=== PATIENT | male | born 1955 | race Two or more races ===

== ENCOUNTER → 2024-03-17 | Outpatient (CLI) | payer OTHER, SELFPAY | END | disposition home or self-care (01) | LOC: SWHD 13:09 | PROVIDERS: PCP Nurse Anesthetist, Certified Registered; Referring Provider Nurse Anesthetist, Certified Registered; Visit Provider Surgery | DX: E11.621 Type 2 diabetes mellitus with foot ulcer (principal); L97.412 Non-pressure chronic ulcer of right heel and midfoot with fat layer exposed; L97.411 Non-pressure chronic ulcer of right heel and midfoot limited to breakdown of skin; L97.522 Non-pressure chronic ulcer of other part of left foot with fat layer exposed; S91.302A Unspecified open wound, left foot, initial encounter; X58.XXXA Exposure to other specified factors, initial encounter; I25.10 Atherosclerotic heart disease of native coronary artery without angina pectoris; I10 Essential (primary) hypertension; Z79.4 Long term (current) use of insulin; Z91.199 Patient's noncompliance with other medical treatment and regimen due to unspecified reason; E11.40 Type 2 diabetes mellitus with diabetic neuropathy, unspecified | CPT/HCPCS: 11042; A9270 ==

== ENCOUNTER → 2024-03-17 | Outpatient (CLI) | payer OTHER, SELFPAY ==
--- NOTE | 2024-03-17 15:20 | XR_ITS ---
Examination: Foot, left, 3 views Technique: AP, oblique, lateral views foot, 3 views Date and time of exam: March 17, 2024 1530 hours INDICATIONS: Foot pain redness and swelling beginning 5 days ago. FINDINGS: Bone destruction involving amputated distal fourth metatarsal, erosions distal third and second metatarsals No opaque foreign body Soft tissue vascular calcification IMPRESSION: Osteomyelitis fourth third and second metatarsals as above, consider MRI foot without contrast follow-up
== END | disposition home or self-care (01) ==
LOC: SDIM 14:59
PROVIDERS: Referring Provider Surgery; Visit Provider Surgery
DX: M86.8X7 Other osteomyelitis, ankle and foot (principal)
CPT/HCPCS: 73630

== ENCOUNTER → 2024-03-18 | Outpatient (CLI) | payer OTHER, SELFPAY | END | disposition home or self-care (01) | LOC: SLDO 16:26 | PROVIDERS: Referring Provider Surgery; Visit Provider Surgery | DX: E11.621 Type 2 diabetes mellitus with foot ulcer (principal) | CPT/HCPCS: 87070; 87075; 87077; 87186; 87205 ==

== ENCOUNTER → 2024-03-18 | Outpatient (CLI) | payer OTHER, SELFPAY ==
[2024-03-18 09:51] LABS: Basophils # (Auto) 0.1 Thou/mm3 (0.0-0.2); Basophils % (Auto) 1 % (0-2.5); Eosinophils # (Auto) 0.3 Thou/mm3 (0.0-0.5); Eosinophils % (Auto) 3 % (0-10); Hemoglobin 12.4 g/dL (13.5-16.0); Immature Granulocytes % (Auto) 1 % (0-0); Immature Granulocytes Auto 0.06 Thou/mm3 (0.00-0.00); Lymphocytes # (Auto) 1.9 Thou/mm3 (1.0-4.8); Lymphocytes % (Auto) 22 % (10-50); Mean Corpuscular HGB Conc 33.5 g/dl (31.0-37.0); Mean Corpuscular Hemoglobin 29.2 pg (25.0-35.0); Mean Corpuscular Volume 87 fL (80-100); Monocytes # (Auto) 0.8 Thou/mm3 (0.0-0.8); Monocytes % (Auto) 10 % (0-12); Neutrophils # (Auto) 5.4 Thou/mm3 (1.8-7.7); Neutrophils % (Auto) 64 % (37-80); Nucleated Red Blood Cell % 0 /100 WBC (0); Platelet Count 236 Thou/mm3 (140-440); Red Blood Count 4.25 Miln/mm3 (4.50-5.90); White Blood Count 8.4 Thou/mm3 (3.8-10.6)
[2024-03-18 09:59] LABS: Glucose Estimated Average 315 mg/dL (80-131); Hemoglobin A1C 12.6 % Hgb (4.8-6.0)
[2024-03-18 10:12] LABS: Alanine Aminotransferase 11 U/L (10-49); Albumin, Serum 4.3 gm/dL (3.4-4.8); Albumin/Globulin Ratio 1.3 (1.2-2.2); Alkaline Phosphatase 114 U/L (46-116); Anion Gap 7 (7-16); Aspartate Amino Transferase 14 U/L (0-34); BUN/Creatinine Ratio 22 Ratio (12-20); Bilirubin,Total 0.2 mg/dL (0.3-1.2); Blood Urea Nitrogen 28 mg/dL (9-23); Calcium 9.6 mg/dL (8.3-10.6); Calcium (Corrected) 9.6 mg/dL (8.5-10.1); Carbon Dioxide 28.3 mMol/L (20.0-31.0); Chloride 101 mMol/L (98-107); Creatinine (Component) 1.3 mg/dL (0.6-1.3); Globulin 3.2 gm/dL (2.3-3.5); Glucose 371 mg/dL (74-106); Osmolality,Calculated 292 (275-295); Potassium 5.2 mMol/L (3.4-5.1); Sodium 136 mMol/L (136-145); Total Protein 7.5 gm/dL (5.7-8.2); eGFR 60 See Note
== END | disposition home or self-care (01) ==
LOC: COPL 09:03
PROVIDERS: PCP Family Medicine; Referring Provider Surgery; Visit Provider Surgery
DX: E11.621 Type 2 diabetes mellitus with foot ulcer (principal)
CPT/HCPCS: 36415; 80053; 83036; 85025

== ENCOUNTER 2024-03-26 06:17 | Emergency (ER) | payer OTHER, SELFPAY ==
[2024-03-26 06:27] VITALS: BP 143/69; PULSE 76; RESP 18; TEMP 36.7; O2SAT 98; BMI 29.6
--- NOTE | 2024-03-26 06:29 | EDNOTE_ITS ---
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 Son states patient has catheter exchanges approx every month and he's due for an exchange. No fever, abdominal pain or urinary symptoms reported. 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 Urology: Michael. Related Data Home Medications ?Medication ?Instructions ?Recorded ?Confirmed Glyburide/Metformin * (GLUCOVANCE 1 tab PO TIDWM #0 tabs 09/01/12/11/20 5/500 *) captopril 25 mg tablet 25 mg PO QDAY #0 tabs 09/14/16 12/11/20 Previous Rx's ?Medication ?Instructions ?Recorded ciprofloxacin HCl 500 mg tablet 500 mg PO BID #14 tabs 12/12/20 (Cipro) sulfamethoxazole 800 1 tab PO BID #20 tabs 05/30/23 mg-trimethoprim 160 mg tablet (Bactrim DS) Allergies Allergy/AdvReac Type Severity Reaction Status Date / Time No Known Allergies Allergy Verified 09/11/23 10:13 Review of Systems Review of Systems Systems Reviewed: All systems reviewed, normal except as documented Constitutional Constitutional: Denies chills and Denies fever(s) Gastrointestinal Gastrointestinal: Denies nausea and Denies vomiting Genitourinary Genitourinary: Denies dysuria and Denies flank pain Past Medical History Past Medical History GENITOURINARY: Positive Benign Prostatic Hyperplasia ENDOCRINE: Positive Diabetes Mellitus Type 2 Social History SMOKING STATUS: Never smoker SUBSTANCE USE: does not use ALCOHOL: Never ED Exam General Limitations: Present no limitations General appearance: Present alert and in no apparent distress Head Head exam: Present atraumatic and normocephalic Eye Eye exam: Present normal appearance, PERRL and EOMI ENT ENT exam: Present normal exam and mucous membranes moist Neck Neck exam: Present normal inspection and full ROM Chest Chest inspection: Present normal inspection and symmetric chest wall rise Respiratory Respiratory exam: Present normal lung sounds bilaterally; Absent respiratory distress Cardiovascular Cardiovascular exam: Present regular rate and normal rhythm Abdominal Exam Abdominal exam: Present soft and other (Suprapubic catheter site, mild surrounding erythema); Absent distention or tenderness Extremities Exam Extremities exam: Present normal inspection and full ROM Neurological Exam Neurological exam: Present alert and oriented X3 Psychiatric Psychiatric exam: Present normal affect and normal mood Skin Skin exam: Present warm, dry, intact and normal color Course Quality Measures none Orders Category Date Time Status Lidocaine Jelly 2% Urojet [Xylocaine Jelly 2% Urojet] Med 03/26/24 07:06 Discontinued See Dose Instructions TOP X1 ONE Vital Signs Vital signs: Vital Signs Temperature 98.1 F 03/26/24 06:27 Pulse Rate 76 03/26/24 06:27 Respiratory Rate 18 03/26/24 06:27 Blood Pressure 143/69 H 03/26/24 06:27 Pulse Oximetry (%) 98 03/26/24 06:27 Oxygen Delivery Method Room Air 03/26/24 06:27 Urogenital - Male MDM Narrative MDM Narrative:: 69yom with pmhx of DM2 and BPH/urinary retention presents to ED after suprapubic catheter fell out this morning. Son states patient has catheter exchanges approx every month and he's due for an exchange. No fever, abdominal pain or urinary symptoms reported. 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 Urology: Michael. Unable to replace suprapubic catheter in ED. Catheter had resistance with minimal tubing inserted, prior cath had been out for a few hours. Son wishes to take patient from ED to Dr. Escobar's office for cath replacement. Stable for dc, RTED precautions given. Patient data External records reviewed:: [facility] previous records (urology clinic visit 09/11/23 for new patient referral) Clinical information provided by:: patient and family (son) Social determinants that could affect healthcare access:: none Patient has the following chronic illnesses:: BPH, urinary retention, DM How is presenting disease/condition affected by chronic disease/condition?: caused by Evaluation data The following diagnostics were reviewed and interpreted by me:: other (specify) (none) Lab and/or radiology exams considered but not ordered:: UA Interpretation Summary: na Medications / Prescriptions Medications or Prescriptions considered but not ordered:: no antibiotics recommended at this time Medication administrations:: Medication Administration History Discontinued Medications Lidocaine HCl (Lidocaine Jelly 2% (Urojet) 10 Ml Tube) 0 ml TOP X1 ONE Stop: 03/26/24 07:07 Last Admin: 03/26/24 07:15 Dose: 10 ml Documented By: EF none Consultations Consultation(s) initiated? (list below): No Diagnosis Urogenital Male Differential Diagnosis: other (UTI, retention of urine, catheter issue) Most likely diagnosis given after review of the tests above:: Catheter issue Admission Indicated Admission indicated?: not indicated Admission Request Was there a request for admission?: No Disposition Plan Disposition Plan: Discharge Discharge Attestation Discharge Attestation: The patient and all family members were given an opportunity to ask questions and understood the discharge instructions. Discharge instructions specifically effects, indications for sooner follow up or return to the emergency department, and the expected course of current diagnosis. Patient condition: Stable Discharge Plan Plan Patient Disposition: HOME (Self Care) Patient condition on transfer: Stable Prescriptions/Referrals Prescriptions/Med Rec: No Action Glyburide/Metformin * (GLUCOVANCE 5/500 *) 1 TAB tablet 1 tab PO TIDWM Qty: 0 captopril 25 MG tablet 25 mg PO QDAY Qty: 0 ciprofloxacin HCl [Cipro] 500 mg tablet 500 mg PO BID Qty: 14 0RF sulfamethoxazole-trimethoprim [Bactrim DS] 800-160 mg tablet 1 tab PO BID Qty: 20 0RF Referrals: Luis Escobar MD [Physician] - 03/26/24 Problem List Clinical Impression: Suprapubic catheter dysfunction Patient/Caregiver Discharge Instructions Print Language: Macedonian Stand Alone Forms: Jeanette Award Info., Patient Portal Info Letter PA/DENISE Supervising Physician PA/DENISE Supervising Physician: Thelma
[2024-03-26] MEDS: LIDOCAINE JELLY 2% (Urojet) 10 ML TUBE TOP (07:15)
[2024-03-26 07:30] VITALS: BP 150/83; PULSE 74; RESP 16; TEMP 36.8; O2SAT 98
--- NOTE | 2024-03-26 07:35 | PC.NURSE ---
patient brought in today for suprapubic catheter that came out 1 hour ago ANNELIESE fisher at bedside attempted to place a new one but wasnt able to. recommended the patient see a gu specialist to place a new one.
== END 2024-03-26 07:45 | disposition home or self-care (01) ==
LOC: SERX 08:37
PROVIDERS: Emergency Provider Emergency Medicine
DX: T83.020A Displacement of cystostomy catheter, initial encounter (principal); N40.1 Benign prostatic hyperplasia with lower urinary tract symptoms; R33.8 Other retention of urine; Y83.3 Surgical operation with formation of external stoma as the cause of abnormal reaction of the patient, or of later complication, without mention of misadventure at the time of the procedure
CPT/HCPCS: 99282

== ENCOUNTER 2024-04-16 11:20 | Inpatient (IN) | payer OTHER, MEDICAID, MEDICARE, SELFPAY ==
--- NOTE | 2024-04-16 12:01 | XR_ITS ---
Examination: Foot bilateral, 6 views Technique: AP, oblique, lateral views each foot total 6 views Date and time of exam: April 16 2024 to 16 hours Comparison left foot films March 17, 2024, INDICATIONS: redness swelling and pain involving the bilateral feet months FINDINGS: Right foot chronic erosive changes fifth and fourth metatarsals again noted Chronic subluxation at the right second metatarsophalangeal joint Suspicious for erosions distal right third metatarsal Erosions distal amputated fourth metatarsal left foot Flexion deformity second metatarsophalangeal joint left foot IMPRESSION: Osteomyelitis right foot fourth and fifth metatarsals distal third metatarsal Osteomyelitis left foot fourth metatarsal Consider elective MRI right and left foot without contrast follow-up
--- NOTE | 2024-04-16 12:02 | PD.EDRME ---
Rapid Medical Screening Exam E Arrival date/time: 04/16/24 11:20 69-year-old male with a history of type 2 diabetes, hypertension, hyperlipidemia presents to the emergency room with a chief complaint of bilateral lower foot diabetic ulcers. Patient states she has had multiple amputations in his feet and has now developed bilateral blisters and wounds to the bottom of his feet. I have greeted and performed a focused initial assessment of this patient. A comprehensive ED assessment and evaluation of the patient, analysis of all test results, and completion of the medical decision making process will be conducted by additional ED providers. Chief Complaint: Extremity Injury, Lower Vital signs reviewed by provider: Yes
[2024-04-16 12:05] VITALS: BP 140/77; PULSE 75; RESP 17; TEMP 36.8; O2SAT 99; BMI 28.5
[2024-04-16 12:30] LABS: Basophils # (Auto) 0.1 Thou/mm3 (0.0-0.2); Basophils % (Auto) 1 % (0-2.5); Eosinophils # (Auto) 0.2 Thou/mm3 (0.0-0.5); Eosinophils % (Auto) 2 % (0-10); Hematocrit 36.6 % (41.0-53.0); Hemoglobin 12.2 g/dL (13.5-16.0); Immature Granulocytes % (Auto) 0 % (0-0); Immature Granulocytes Auto 0.02 Thou/mm3 (0.00-0.00); Lymphocytes # (Auto) 2.3 Thou/mm3 (1.0-4.8); Lymphocytes % (Auto) 24 % (10-50); Mean Corpuscular HGB Conc 33.3 g/dl (31.0-37.0); Mean Corpuscular Hemoglobin 29.4 pg (25.0-35.0); Mean Corpuscular Volume 88 fL (80-100); Monocytes # (Auto) 0.8 Thou/mm3 (0.0-0.8); Monocytes % (Auto) 9 % (0-12); Neutrophils % (Auto) 64 % (37-80); Nucleated Red Blood Cell % 0 /100 WBC (0); Platelet Count 268 Thou/mm3 (140-440); RDW Standard Deviation 43.6 fL (35.1-43.9); Red Blood Count 4.15 Miln/mm3 (4.50-5.90); White Blood Count 9.4 Thou/mm3 (3.8-10.6)
[2024-04-16 13:01] LABS: Alanine Aminotransferase 11 U/L (10-49); Albumin, Serum 4.8 gm/dL (3.4-4.8); Albumin/Globulin Ratio 1.2 (1.2-2.2); Alkaline Phosphatase 116 U/L (46-116); Anion Gap 9 (7-16); Aspartate Amino Transferase 12 U/L (0-34); BUN/Creatinine Ratio 25 Ratio (12-20); Bilirubin,Total 0.3 mg/dL (0.3-1.2); Blood Urea Nitrogen 32 mg/dL (9-23); C-Reactive Protein 2.3 mg/dL (0.0-0.9); Calcium 9.5 mg/dL (8.3-10.6); Calcium (Corrected) 9.5 mg/dL (8.5-10.1); Carbon Dioxide 27.5 mMol/L (20.0-31.0); Chloride 102 mMol/L (98-107); Creatinine (Component) 1.3 mg/dL (0.6-1.3); Estimated Creatinine Clearance 49.1 mL/min (>60); Globulin 3.9 gm/dL (2.3-3.5); Glucose 225 mg/dL (74-106); Osmolality,Calculated 289 (275-295); Potassium 4.4 mMol/L (3.4-5.1); Sodium 138 mMol/L (136-145); Total Protein 8.7 gm/dL (5.7-8.2); eGFR 60 See Note
[2024-04-16 14:09] LABS: Sed Rate (ESR) 52 mm/hr (0-20)
[2024-04-16 16:49] VITALS: BP 129/66; PULSE 75; RESP 17; TEMP 36.7; O2SAT 96
[2024-04-16 17:27] LABS: Lactate (Lactic Acid) 1.5 mMol/L (0.4-2.0)
[2024-04-16 18:03] LABS: Procalcitonin 0.12 ng/ml (0.0-0.49)
--- NOTE | 2024-04-16 18:31 | PD.RESEVENT ---
Documentation for date of: 04/16/24 Event Note Event Note: Received call after 6pm Per report 69 y/o M with hx of diabetes with diabetic foot ulcers possible osteomyelitis. General surgery Dr. Bradford was consulted and will evaluate the patient. Will sign off to night team. Jem Elizabeth MD PGY-1
--- NOTE | 2024-04-16 18:33 | EDNOTE_ITS ---
Lower Extremity Injury RME/HPI General Chief Complaint: Extremity Injury, Lower Stated Complaint: WOUND TO RIGHT FOOT HX DM Arrival date/time: 04/16/24 11:20 RME / HPI RME / HPI Narrative: DR. HORTON MAIN ED EVALUATION: 69 year old male with past medical history significant for type 2 diabetes, hypertension, hyperlipidemia presents to the Emergency Department with complaint of bilateral feet wounds/ ulcers. Symptoms are moderate. Patient states she has had multiple toe amputations and has now developed bilateral blisters and wounds to the bottom of his feet. Patient denies any tobacco, alcohol, or substance use. Related Data Home Medications ?Medication ?Instructions ?Recorded ?Confirmed captopril 25 mg tablet 25 mg PO QDAY #0 tabs 09/14/16 12/11/20 Previous Rx's ?Medication ?Instructions ?Recorded blood-glucose sensor (FreeStyle #1 ea 04/19/24 Anh 3 Plus Sensor device) doxycycline hyclate 100 mg tablet 100 mg PO BID 6 weeks #84 tabs 04/19/24 insulin glargine 100 unit/mL (3 20 unit (0.2 mL) subcut QDAY #15 mL 04/19/24 mL) subcutaneous pen insulin syringe-needle U-100 1 mL #100 ea 04/19/24 29 gauge x 1/2 (Ultra-Thin II Insulin Syringe) metformin 500 mg tablet 500 mg PO BID #30 tabs 04/19/24 Allergies Allergy/AdvReac Type Severity Reaction Status Date / Time No Known Allergies Allergy Verified 04/16/24 11:23 Review of Systems Review of Systems Systems Reviewed: All systems reviewed, normal except as documented Narrative Review of Systems: GEN: No fever, no chills, no weight loss EYES: No discharge, no visual changes, no pain HEENT: No ear pain, no congestion, no sore throat PULM: No shortness of breath, no cough, no congestion CV: No chest pain, no dyspnea on exertion, no palpitations GI: No nausea, no vomiting, no diarrhea, no pain, no constipation : No frequency, no urgency and no dysuria MUSC/SKEL: No joint pain, no back pain SKIN: No rash. + bilateral feet wounds/ ulcers PSYCH: No hallucinations, no depression HEME/LYMPH: No easy bleeding or bruising tendencies NEURO: No weakness, no headache Past Medical History Past Medical History CARDIAC: Negative Congestive Heart Failure RESPIRATORY: Negative Chronic Obstructive Pulmonary Disease (COPD) GENITOURINARY: Positive Genitourinary Disorders (SUPRAPUBIC CATHETER FOR 1.5 YEARS) and Benign Prostatic Hyperplasia; Negative Renal Disease ENDOCRINE: Positive Diabetes Mellitus Type 2; Negative Diabetes Mellitus Type 1 Social History SMOKING STATUS: Never smoker SUBSTANCE USE: does not use ED Exam Narrative Physical exam: GENERAL APPEARANCE: alert and oriented x 4, well-developed, well-nourished, no acute distress VITALS: All vitals were reviewed and the pulse ox is 96% on room air, which is normal according to my interpretation. HEENT: Normocephalic, atraumatic; pupils equal, round, reactive to light; EOMI; mucous membranes pink, moist; oropharynx clear NECK: Supple LUNGS: CTABL; no wheezes, no rales, no rhonchi HEART: Regular rate, regular rhythm; normal S1, S2; no murmurs ABDOMEN: non distended; normal BS; soft, no tenderness, no guarding, no rebound; no masses, no organomegaly, no hernia BACK: no CVA tenderness EXTREMITIES: + bilateral blisters and wounds to the bottom of his feet NEUROLOGIC: awake; alert and oriented x4; cranial nerves II-XII grossly intact; no focal sensory or motor deficits PSYCHIATRIC: appropriate mood and affect SKIN: warm, dry, normal color; no rashes Course Quality Measures none Orders Category Date Time Status Insert IV NOW Care 04/16/24 18:17 Completed Consult to General Surgery Stat Cons 04/16/24 18:15 Ordered XR foot comp BI min 3V Stat Exams 04/16/24 12:01 Completed Blood Culture (Lab) Stat Lab 04/16/24 17:15 Results CBC Stat Lab 04/16/24 12:10 Completed CMP [Comprehensive Metabolic Panel] Stat Lab 04/16/24 12:10 Completed CRP [C-Reactive Protein] Stat Lab 04/16/24 12:10 Completed ESR [Sed Rate (ESR)] Stat Lab 04/16/24 12:10 Completed Lactate (Lactic Acid) Stat Lab 04/16/24 17:15 Completed Procalcitonin Stat Lab 04/16/24 17:15 Completed Piper/Tazo 3.375 gm [Zosyn] Med 04/16/24 16:59 Discontinued 3.375 gm in 50 ml IV X1 Vancomycin Inj 1,000 mg Med 04/16/24 17:00 Discontinued Sodium Chloride 0.9% 250 ml [Ns] 250 ml IV X1 Vital Signs Vital signs: Vital Signs Temperature 98.2 F 04/16/24 12:05 Pulse Rate 75 04/16/24 12:05 Respiratory Rate 17 04/16/24 12:05 Blood Pressure 140/77 H 04/16/24 12:05 Pulse Oximetry (%) 99 04/16/24 12:05 Oxygen Delivery Method Room Air 04/16/24 12:05 Extremity Injury, Lower MDM Narrative MDM Narrative:: Maribel Stone am scribing for and in the presence of Dr. Horton. Patient data External records reviewed:: [facility] previous records (Reviewed last ED visit dated 03/26/24, discharged with Suprapubic catheter dysfunction.) Clinical information provided by:: patient and family Social determinants that could affect healthcare access:: none Patient has the following chronic illnesses:: type 2 diabetes, hypertension, hyperlipidemia How is presenting disease/condition affected by chronic disease/condition?: exacerbated by Evaluation data The following diagnostics were reviewed and interpreted by me:: lab results and radiology exam(s) Lab and/or radiology exams considered but not ordered:: none Interpretation Summary: Procedure(s): XR foot comp BI min 3V Accession Number(s): [id number] cc: Roberto Garcia; Adebayo Hebert MD~ Examination: Foot bilateral, 6 views Technique: AP, oblique, lateral views each foot total 6 views Date and time of exam: April 16 2024 to 16 hours Comparison left foot films March 17, 2024, INDICATIONS: redness swelling and pain involving the bilateral feet months FINDINGS: Right foot chronic erosive changes fifth and fourth metatarsals again noted Chronic subluxation at the right second metatarsophalangeal joint Suspicious for erosions distal right third metatarsal Erosions distal amputated fourth metatarsal left foot Flexion deformity second metatarsophalangeal joint left foot IMPRESSION: Osteomyelitis right foot fourth and fifth metatarsals distal third metatarsal Osteomyelitis left foot fourth metatarsal Consider elective MRI right and left foot without contrast follow-up Dictated By: Adebyao Hebert MD Medications / Prescriptions Medications or Prescriptions considered but not ordered:: none Medication administrations:: Medication Administration History Discontinued Medications Acetaminophen (Acetaminophen 325 Mg Tablet) 650 mg PO Q6H PRN PRN Reason: Fever >101.5 Stop: 02/02/25 21:24 Acetaminophen (Acetaminophen 325 Mg Tablet) 650 mg PO Q6H PRN PRN Reason: PAIN SCALE 1-3 (mild Stop: 05/16/24 21:24 Atorvastatin Calcium (Atorvastatin Calcium 20 Mg Tablet) 20 mg PO HS [facility] Stop: 05/17/24 20:59 Last Admin: 04/19/24 20:26 Dose: 20 mg Documented By: Admin: 04/18/24 20:31 Dose: 20 mg Documented By: Admin: 04/17/24 20:30 Dose: 20 mg Documented By: Captopril (Captopril 12.5 Mg Tablet) 25 mg PO QDAY [facility] Stop: 05/19/24 15:44 Last Admin: 04/20/24 09:05 Dose: Not Given Documented By: Non-Admin Reason: per pharmacy dont carry this switch to other Admin: 04/19/24 16:00 Dose: Not Given Documented By: Non-Admin Reason: Not In Room Dextrose (Dextrose 50%-Water Inj 50 Ml Syringe) 25 ml IV Q15MIN PRN PRN Reason: BG 50-70 responsive npo pt Stop: 05/16/24 21:28 Dextrose (Dextrose 50%-Water Inj 50 Ml Syringe) 50 ml IV Q15MIN PRN PRN Reason: BG <50 OR BG <70 & pt unresponsive Stop: 05/16/24 21:28 Diltiazem HCl (Diltiazem Inj 5 Mg/Ml Vial 5 Ml) 25 mg IV X1 ONE Stop: 04/18/24 05:09 Last Admin: 04/18/24 05:08 Dose: Not Given Documented By: Non-Admin Reason: entered in error Doxycycline Hyclate (Doxycycline 100 Mg Tablet) 100 mg PO BID [facility] Stop: 04/26/24 10:14 Last Admin: 04/20/24 08:55 Dose: 100 mg Documented By: Admin: 04/19/24 20:26 Dose: 100 mg Documented By: Admin: 04/19/24 12:05 Dose: 100 mg Documented By: Comments: first dose Glucagon (Glucagon Inj 1 Mg Vial) 1 mg IM Q15MIN PRN PRN Reason: BG <70, and no IV access Heparin Sodium (Beef Lung) (Heparin Sod Lock Syr 100 Unit/Ml) Confirm Administered Dose 500 unit .ROUTE .STK-MED ONE Stop: 04/19/24 15:15 Last Admin: 04/19/24 15:34 Dose: Not Given Documented By: CU Non-Admin Reason: Override Medication Heparin Sodium (Beef Lung) (Heparin Sod Lock Syr 100 Unit/Ml) 500 unit STFIELD X1 ONE Stop: 04/19/24 15:30 Last Admin: 04/19/24 15:31 Dose: 500 unit Documented By: EREN Comments: to sterile field Heparin Sodium (Porcine) (Heparin Sod Inj 5000 Unit/Ml Vial) 5,000 unit SC Q8HR [facility] Stop: 04/30/24 21:59 Last Admin: 04/17/24 05:42 Dose: 5,000 unit Documented By: Co-signed By: RUDY Admin: 04/16/24 22:37 Dose: 5,000 unit Documented By: JOCELYN Co-signed By: ENDER Heparin Sodium (Porcine) (Heparin Sod Inj 5000 Unit/Ml Vial) 5,000 unit SC Q12H [facility] Stop: 05/01/24 20:59 Last Admin: 04/20/24 08:55 Dose: 5,000 unit Documented By: Co-signed By: MALLORY Admin: 04/19/24 20:26 Dose: 5,000 unit Documented By: AIYANA Co-signed By: SABIHA Admin: 04/19/24 09:52 Dose: 5,000 unit Documented By: Co-signed By: MEG Admin: 04/18/24 20:34 Dose: 5,000 unit Documented By: NASEEM Co-signed By: RUDY Admin: 04/18/24 09:28 Dose: 5,000 unit Documented By: NASEEM(2) Co-signed By: SUKUMAR Admin: 04/17/24 20:31 Dose: 5,000 unit Documented By: Co-signed By: SABIHA Hydromorphone HCl (Hydromorphone Inj 2 Mg/Ml Vial) 1 mg IVP Q2H PRN PRN Reason: Pain 7-10 Stop: 04/21/24 21:24 Vancomycin HCl 1,000 mg/ (Sodium Chloride) 250 mls @ 150 mls/hr IV X1 ONE Stop: 04/16/24 18:39 Last Infusion: 04/16/24 21:44 Dose: Infused Documented By: Admin: 04/16/24 19:43 Dose: 150 mls/hr Documented By: JOCELYN Piperacillin/Tazobactam/Dextrose (Zosyn) 3.375 gm in 50 mls @ 100 mls/hr IV X1 ONE Stop: 04/16/24 17:28 Last Infusion: 04/16/24 19:49 Dose: Infused Documented By: Admin: 04/16/24 19:10 Dose: 100 mls/hr Documented By: MAGALIE Piperacillin/Tazobactam/Dextrose (Zosyn) 50 mls @ 12.5 mls/hr IV Q8HR YELITZA Stop: 04/24/24 05:59 Last Admin: 04/19/24 05:19 Dose: 12.5 mls/hr Documented By: Infusion: 04/19/24 04:16 Dose: Infused Documented By: Admin: 04/19/24 00:16 Dose: 12.5 mls/hr Documented By: Infusion: 04/18/24 18:28 Dose: Infused Documented By: Admin: 04/18/24 14:28 Dose: 12.5 mls/hr Documented By: NASEEM(2) Infusion: 04/18/24 09:14 Dose: Infused Documented By: NASEEM(2) Admin: 04/18/24 05:14 Dose: 12.5 mls/hr Documented By: Infusion: 04/18/24 02:25 Dose: Infused Documented By: Admin: 04/17/24 22:25 Dose: 12.5 mls/hr Documented By: Infusion: 04/17/24 18:16 Dose: Infused Documented By: Admin: 04/17/24 14:16 Dose: 12.5 mls/hr Documented By: NASEEM(2) Infusion: 04/17/24 09:40 Dose: Infused Documented By: NASEEM(2) Admin: 04/17/24 05:40 Dose: 12.5 mls/hr Documented By: Piperacillin Sod/Tazobactam (Sod 4.5 gm/ Sodium Chloride) 100 mls @ 200 mls/hr IV X1 ONE Stop: 04/17/24 01:29 Last Infusion: 04/17/24 01:31 Dose: Infused Documented By: Admin: 04/17/24 01:01 Dose: 200 mls/hr Documented By: Vancomycin/Sodium Chloride (Vancomycin/Ns 500 Mg Ivpb) 100 mls @ 120 mls/hr IV Q12HR@1000,2200 YELITZA Stop: 04/24/24 09:59 Last Infusion: 04/17/24 22:29 Dose: Infused Documented By: Admin: 04/17/24 21:29 Dose: 120 mls/hr Documented By: Infusion: 04/17/24 10:28 Dose: Infused Documented By: Admin: 04/17/24 09:38 Dose: 120 mls/hr Documented By: NASEEM(2) Vancomycin HCl (Vancomycin/Water 1250 Mg Ivpb) 250 mls @ 120 mls/hr IV QDAY@1000 [facility] Stop: 04/25/24 09:59 Last Admin: 04/19/24 09:52 Dose: 120 mls/hr Documented By: Infusion: 04/18/24 12:10 Dose: Infused Documented By: Admin: 04/18/24 10:05 Dose: 120 mls/hr Documented By: NASEEM(2) Ceftriaxone Sodium 2 gm/ (Sodium Chloride) 50 mls @ 100 mls/hr IV QDAY [facility] Stop: 04/26/24 10:14 Last Admin: 04/20/24 08:54 Dose: 100 mls/hr Documented By: Infusion: 04/19/24 12:34 Dose: Infused Documented By: Admin: 04/19/24 12:04 Dose: 100 mls/hr Documented By: Insulin Glargine (Insulin Glargine (Lantus) 5 Unit/0.05 Ml (Per 5 Units)) 25 unit SC QDAY [facility] Stop: 05/17/24 08:59 Last Admin: 04/20/24 08:55 Dose: 25 unit Documented By: Co-signed By: MALLORY Admin: 04/19/24 09:58 Dose: 25 unit Documented By: Co-signed By: RICHARD Admin: 04/18/24 09:28 Dose: 25 unit Documented By: NSAEEM(2) Co-signed By: SUKUMAR Admin: 04/17/24 09:37 Dose: 25 unit Documented By: NASEEM(2) Co-signed By: SUKUMAR Insulin Human Lispro (Insulin Lispro (Admelog) 1 Unit/0.01 Ml Unit) 0 unit SC ACHS [facility]; Protocol Stop: 05/17/24 07:29 Last Admin: 04/17/24 07:29 Dose: 1 unit Documented By: NASEEM(2) Co-signed By: SUKUMAR Insulin Human Lispro (Insulin Lispro (Admelog) 1 Unit/0.01 Ml Unit) 0 unit SC [facility]; Protocol Stop: 05/17/24 11:29 Insulin Human Lispro (Insulin Lispro (Admelog) 1 Unit/0.01 Ml Unit) 0 unit SC [facility]; Protocol Stop: 05/17/24 11:29 Last Admin: 04/20/24 11:52 Dose: 4 unit Documented By: Co-signed By: RICHARD Admin: 04/20/24 07:54 Dose: 4 unit Documented By: Co-signed By: MÓNICA Admin: 04/19/24 17:12 Dose: 4 unit Documented By: Co-signed By: RICHARD Admin: 04/19/24 11:56 Dose: 4 unit Documented By: Co-signed By: RICHARD Admin: 04/19/24 08:00 Dose: Not Given Documented By: Non-Admin Reason: Per Protocol Admin: 04/18/24 17:18 Dose: 4 unit Documented By: NASEEM(2) Co-signed By: MEG Admin: 04/18/24 12:21 Dose: 4 unit Documented By: NASEEM(2) Co-signed By: CARLOS Admin: 04/18/24 07:17 Dose: Not Given Documented By: NASEEM(2) Non-Admin Reason: Per Protocol Admin: 04/17/24 16:48 Dose: 8 unit Documented By: NASEEM(2) Co-signed By: SUKUMAR Admin: 04/17/24 11:53 Dose: 4 unit Documented By: NASEEM(2) Co-signed By: SUKUMAR Labetalol HCl (Labetalol Inj 5 Mg/Ml Vial 20 Ml) 10 mg IVP Q2H PRN PRN Reason: SBP more than 180 Stop: 05/17/24 02:29 Lidocaine HCl (Lidocaine Inj Pf 1% 30 Ml Vial) Confirm Administered Dose 30 ml .ROUTE .STK-MED ONE Stop: 04/19/24 15:15 Last Admin: 04/19/24 15:34 Dose: Not Given Documented By: EREN Non-Admin Reason: Override Medication Lidocaine HCl (Lidocaine Inj Pf 1% 30 Ml Vial) 5 ml INFL X1 ONE Stop: 04/19/24 15:30 Last Admin: 04/19/24 15:31 Dose: 5 ml Documented By: CU Comments: to sterile field administered by dr hebert Lisinopril (Lisinopril 2.5 Mg Tablet) 5 mg PO QDAY [facility]; Protocol Stop: 05/20/24 09:14 Last Admin: 04/20/24 09:35 Dose: 5 mg Documented By: Ondansetron HCl (Ondansetron Inj 2 Mg/Ml Inj 2 Ml) 4 mg IV Q6H PRN; Protocol PRN Reason: NAUSEA OR VOMITING Stop: 05/16/24 21:24 Oxycodone/Acetaminophen (Oxycodone/Apap 5/325 Tablet) 1 tab PO Q6H PRN PRN Reason: PAIN SCALE 4-6 (Moderate Stop: 04/21/24 21:24 Pantoprazole Sodium (Pantoprazole 40 Mg Tablet) 40 mg PO QDAY YELITZA Stop: 05/17/24 08:59 Last Admin: 04/20/24 08:55 Dose: 40 mg Documented By: Admin: 04/19/24 09:52 Dose: 40 mg Documented By: Admin: 04/18/24 09:29 Dose: Not Given Documented By: NASEEM(2) Non-Admin Reason: Patient Refused Admin: 04/17/24 09:38 Dose: 40 mg Documented By: NASEEM(2) Pharmacy Consult (Vancomycin Pharmacy To Dose 1 Each Each) 1 each IV QDAY PRN PRN Reason: CONSULT Stop: 05/17/24 08:59 see above Consultations Consultation(s) initiated? (list below): Yes Consultation #1 (Physician, Specialty, Details): Discussed test HPI, PMHx, lab, radiology results and/or management with Dr. Bradford. Will consult an admission to the hospitalist. Time: 18:00 Consultation #2 (Physician, Specialty, Details): Discussed test HPI, PMHx, lab, radiology results and/or management with hospitalist. Will admit for further evaluation and management. Accepts patient for admission. Time: 18:20 Diagnosis Extremity Injury, Lower Differential Diagnosis: other (osteomyelitis, diabetic ulcer, sepsis) Most likely diagnosis given after review of the tests above:: As noted below. Admission Indicated Admission indicated?: indicated Admission Request Was there a request for admission?: Yes Admission Attestation Admission request attestation: Discussed case with [] from Hospitalist service regarding admission. Discussed patients ED course, exam findings, labs, and radiology results. The Hospitalist [agrees,declines] to accept the patient for admission. Disposition Plan Disposition Plan: Admit Discharge Plan Plan Patient Disposition: Admit Acute Care w/in Hospital Problem List Clinical Impression: Osteomyelitis, Diabetic foot ulcer Patient/Caregiver Discharge Instructions Other Activity Instructions:: 1) Follow up at [facility] as scheudled. Please call [phone] to rescheudle as needed. 2) Follow up at [facility] with Dr. Parsons, please call [phone] to schedule appointment. 3) Wound care to left foot: swab ulcers with betadine daily. Wear Darco shoe while ambulating. Right foot: cleanse with wound cleanser spray. Saturating with betadine and wrap with dry gauze once a day. Wear Darco shoe while walking.
[2024-04-16] MEDS: PIPER/TAZO 3.375 GM 3.375 GM/50 ML BAG IV (19:10)
[2024-04-16] MEDS: Vancomycin Inj 1,000 MG in SODIUM CHLORIDE 0.9% 250 ML 250 ML 150 MG IV (19:43)
[2024-04-16 20:23] VITALS: BP 135/74; PULSE 72; RESP 18; TEMP 36.9; O2SAT 98
--- NOTE | 2024-04-16 20:48 | ESHP_ITS ---
Documentation for date of: 04/16/24 HPI History of Present Illness Chief complaint: Bilateral feet ulcers for 1 day History of present illness: HPI: A 69-year-old male patient with past medical history of insulin-dependent diabetes mellitus, hypertension, hyperlipidemia came to the ED due to bilateral foot ulcers that he noticed them 1 day ago. He reported that the right started that the swelling and then was popped by itself and started to drain bloody yellowish discharge. Patient denied any pain or hotness he reported that he cannot feel his feet bilaterally. Patient denied any fever or chills denied any night sweats. He reported that he is on insulin to control his diabetes he takes 50 basal insulin and 5 Premeal. Patient reported that recently he ran out of his prescription. Patient denied any cough, shortness of breath, abdominal pain, nausea or vomiting denied any blurry vision or dizziness. Home medications: Insulin, simvastatin, glipizide, Farxiga, ciprofloxacin ED course:At the ED patient was found to have normal vital signs, WBC of 9.4, hemoglobin 12.4, ESR of 52, BUN of 32, serum creatinine 1.3 which is his baseline, glucose of 225, CRP of 2.3, Pro-Williams within normal limits. Bilateral foot x-ray showed osteomyelitis of the right foot fourth and fifth metatarsal and distal third metatarsal bones, it also showed left foot fourth metatarsal osteomyelitis. PMH: As above Social hx: Alcohol: Denied Tobacco: Denied Illicit drugs: Denied Allergies: No known allergies Review of Systems Review of Systems Systems Reviewed: All systems reviewed, normal except as documented Exam Vital Signs Temp Pulse Resp BP Pulse Ox O2 Del Method 98.4 F 72 18 135/74 H 98 Room Air 04/16/24 20:23 04/16/24 20:23 04/16/24 20:23 04/16/24 20:23 04/16/24 20:23 04/16/24 20:23 Narrative Exam GEN: AOx3, able to speak full sentences HEENT: NC/AC, oral mucosa moist, neck supple CVS: RRR, S1-S2 present, no murmurs appreciated RESP: CTAB GI: soft,non distended, non tender, NBS MSK: Bilateral feet ulcers on the sole of the foot, draining yellowish discharge. No swelling. No cellulitis extending beyond the ulcers. Decreased sensation in both foot. SKIN: warm and dry [employer] REPA[employer]ER PNEUMATIC: CN II-XII and Sensation grossly intact. Results: Labs 04/16/24 12:10 04/16/24 12:10 Labs: Short CBC 04/16/24 Range/Units 12:10 WBC 9.4 (3.8-10.6) Thou/mm3 Hgb 12.2 L (13.5-16.0) g/dL Hct 36.6 L (41.0-53.0) % Plt Count 268 D (140-440) Thou/mm3 BMP 04/16/24 12:10 Sodium 138 Potassium 4.4 Chloride 102 Carbon Dioxide 27.5 BUN 32 H Creatinine 1.3 Glucose 225 H Calcium 9.5 Liver Function 04/16/24 Range/Units 12:10 Total Bilirubin 0.3 (0.3-1.2) mg/dL AST 12 (0-34) U/L ALT 11 (10-49) U/L Alkaline Phosphatase 116 (46-116) U/L Albumin 4.8 (3.4-4.8) gm/dL Quality Measures Quality Measures none Advance care planning discussed with:: patient Medications Home Medications and Allergies Home Medications ?Medication ?Instructions ?Recorded ?Confirmed ?Type Glyburide/Metformin * (GLUCOVANCE 1 tab PO TIDWM #0 tabs 09/01/13 12/11/20 History 5/500 *) captopril 25 mg tablet 25 mg PO QDAY #0 tabs 09/14/16 12/11/20 History Allergies Allergy/AdvReac Type Severity Reaction Status Date / Time No Known Allergies Allergy Verified 04/16/24 11:23 Visit Medications Discontinued Medications Vancomycin HCl 1,000 mg/ (Sodium Chloride) 250 mls @ 150 mls/hr IV X1 ONE Stop: 04/16/24 18:39 Last Admin: 04/16/24 19:43 Dose: 150 mls/hr Piperacillin/Tazobactam/Dextrose (Zosyn) 3.375 gm in 50 mls @ 100 mls/hr IV X1 ONE Stop: 04/16/24 17:28 Last Infusion: 04/16/24 19:49 Dose: Infused Assessment & Plan Plan Summary:A 69-year-old male patient with past medical history of insulin- dependent diabetes mellitus, hypertension, hyperlipidemia came to the ED due to bilateral foot ulcers that he noticed them 1 day ago. He reported that the right started that the swelling and then was popped by itself and started to drain bloody yellowish discharge. Patient was admitted for management of osteomyelitis. Assessment and plan #Right foot osteomyelitis #Left foot osteomyelitis #Uncontrolled diabetes mellitus Patient has uncontrolled diabetes mellitus. Last A1c 12.5 in March. normal vital signs, WBC of 9.4, hemoglobin 12.4, ESR of 52, BUN of 32, serum creatinine 1.3 which is his baseline, glucose of 225, CRP of 2.3, Pro-Williams within normal limits. Bilateral foot x-ray showed osteomyelitis of the right foot fourth and fifth metatarsal and distal third metatarsal bones, it also showed left foot fourth metatarsal osteomyelitis. Plan ? Admit patient to MedSurg ? General Surgery consultation was ordered, follow-up on recommendations ? Start the patient on vancomycin and Zosyn 0 04/16? ? Follow-up on the cultures result ? Daily CBC and CMP ? Referral for wound care ? Pain management as per protocol #Uncontrolled insulin-dependent diabetes mellitus #Medicine illiteracy Patient has uncontrolled diabetes mellitus. Last A1c 12.5 in March. Plan ? Insulin sliding scale ? Insulin glargine 25 international units daily ? Hypoglycemia protocol in place ? Carb consistent diet ? Diabetic education #History of hypertension Plan ?Labetalol 10 mg every 2 hours as needed IV if SBP more than 180 ? Consider resuming home medication after reconciliation Hospital Maintenance: FEN: Carb consistent diet DVT ppx: Heparin subcu GI ppx: Protonix IV lines: PIV Hodge: None Code status: Full code Dispo: MedSurg - Patient's plan and care discussed with my attending, Dr. Kenji Lynn MD Internal Medicine PGY-2 Attending Provider Attestation/Addendum I have examined the patient, reviewed labs and imaging findings, discussed the case with the resident(s), and reviewed entered orders. I agree with the plan of care as outlined in this note, with these additional summaries/recommendations: 69-year-old male with past medical history of hypertension, hyperlipidemia, uncontrolled DM on insulin (most recent A1c 12.5) presented to the ED with chief complaint of worsening bilateral lower extremity foot ulcers. Patient reports ulcer on his right foot had gotten worse and had recently popped which is what prompted him to come into the ER. X-ray of bilateral lower extremities revealed osteomyelitis of third fourth and fifth toes of the right foot and fourth toe of left foot. Patient initiated on broad-spectrum antibiotics, consult wound care and general surgery consult placed for further recommendations. Mango Phillip MD
[2024-04-16] MEDS: HEPARIN SOD INJ 5000 UNIT/ML VIAL SC (22:37)
[2024-04-16 22:57] VITALS: BMI 28.8
[2024-04-17] VITALS (7 sets, daily range): BP systolic 99–141; BP diastolic 62–84; PULSE 70–80; RESP 16–98; TEMP 36.1–36.6; O2SAT 96–98; BMI 28.8
[2024-04-17] MEDS: PIPER/TAZO INJ 4.5 GM in SODIUM CHLORIDE 0.9% (P) 100 ML IV (01:01)
[2024-04-17] MEDS: PIPER/TAZO 3.375 GM 50 ML IV ×3 (05:40→22:25)
[2024-04-17] MEDS: HEPARIN SOD INJ 5000 UNIT/ML VIAL SC ×2 (05:42→20:31)
[2024-04-17 06:16] LABS: Basophils # (Auto) 0.1 Thou/mm3 (0.0-0.2); Basophils % (Auto) 1 % (0-2.5); Eosinophils # (Auto) 0.2 Thou/mm3 (0.0-0.5); Eosinophils % (Auto) 2 % (0-10); Hematocrit 34.2 % (41.0-53.0); Hemoglobin 11.2 g/dL (13.5-16.0); Immature Granulocytes % (Auto) 0 % (0-0); Immature Granulocytes Auto 0.02 Thou/mm3 (0.00-0.00); Lymphocytes # (Auto) 2.3 Thou/mm3 (1.0-4.8); Lymphocytes % (Auto) 27 % (10-50); Mean Corpuscular HGB Conc 32.7 g/dl (31.0-37.0); Mean Corpuscular Hemoglobin 29.6 pg (25.0-35.0); Mean Corpuscular Volume 90 fL (80-100); Monocytes % (Auto) 11 % (0-12); Neutrophils % (Auto) 59 % (37-80); Nucleated Red Blood Cell % 0 /100 WBC (0); Platelet Count 260 Thou/mm3 (140-440); RDW Standard Deviation 44.3 fL (35.1-43.9); Red Blood Count 3.79 Miln/mm3 (4.50-5.90); White Blood Count 8.6 Thou/mm3 (3.8-10.6)
[2024-04-17 06:34] LABS: Glucose Estimated Average 280 mg/dL (80-131); Hemoglobin A1C 11.4 % Hgb (4.8-6.0)
[2024-04-17 06:42] LABS: Partial Thromboplastin Time 28.2 Seconds (22.0-36.0); Prothrombin Time 11.4 Seconds (9.0-12.2)
[2024-04-17 06:54] LABS: Alanine Aminotransferase 8 U/L (10-49); Albumin, Serum 4.2 gm/dL (3.4-4.8); Albumin/Globulin Ratio 1.2 (1.2-2.2); Alkaline Phosphatase 94 U/L (46-116); Anion Gap 11 (7-16); Aspartate Amino Transferase 13 U/L (0-34); BUN/Creatinine Ratio 24 Ratio (12-20); Bilirubin,Total 0.4 mg/dL (0.3-1.2); Blood Urea Nitrogen 34 mg/dL (9-23); Calcium 9.1 mg/dL (8.3-10.6); Calcium (Corrected) 9.1 mg/dL (8.5-10.1); Carbon Dioxide 25.4 mMol/L (20.0-31.0); Chloride 105 mMol/L (98-107); Creatinine (Component) 1.4 mg/dL (0.6-1.3); Estimated Creatinine Clearance 45.8 mL/min (>60); Globulin 3.5 gm/dL (2.3-3.5); Glucose 151 mg/dL (74-106); Magnesium 2.6 mg/dL (1.6-2.6); Osmolality,Calculated 291 (275-295); Phosphorous 4.8 mg/dL (2.4-5.1); Potassium 4.6 mMol/L (3.4-5.1); Sodium 141 mMol/L (136-145); Total Protein 7.7 gm/dL (5.7-8.2); eGFR 55 See Note
[2024-04-17] MEDS: INSULIN LISPRO (AdmeLOG) 1 UNIT/0.01 ML UNIT SC ×3 (07:29→16:48)
[2024-04-17] MEDS: INSULIN GLARGINE (Lantus) 5 UNIT/0.05 ML (PER 5 UNITS) 25 UNIT SC (09:37)
[2024-04-17] MEDS: VANCOMYCIN/NS 500 MG IVPB 100 ML 120 MG IV ×2 (09:38→21:29)
[2024-04-17] MEDS: PANTOPRAZOLE 40 MG TABLET PO (09:38)
--- NOTE | 2024-04-17 12:48 | ESPR_ITS ---
<Statement entered by Ronnie Quinn MD - 04/17/24 17:05> Patient was seen and examined at the bedside. Patient was admitted overnight for right and left foot osteomyelitis. Patient was complaining of pain in both lower extremities and has been having recent infection from past couple of weeks. Patient was found to have uncontrolled diabetes with a A1c of 11.4. Procalcitonin negative. Labs revealed WBC within normal limits, normocytic anemia. Mild NITIN with BUN 34 and creatinine 1.4. ESR and CRP elevated. Patient's home medication resumed. Dietitian recommended freestyle morenita 3 upon discharge. Patient also has a pacemaker placed unsure if it is MRI compatible. Patient did had an MRI at [facility] 2 months ago. Surgery was consulted for possible surgical intervention/evaluation however she recommended to discontinue MRI and continue with antibiotics and consult ID specialist for antibiotic selection. Currently we are continuing Zosyn and vancomycin and will follow-up with blood cultures, MRSA screen and wound cultures. Basal bolus insulin regime was started with Lantus 25 units and lispro sliding scale. Will follow with ID recommendations. All labs and orders were reviewed. I saw and examined the patient, and I agree with current management stated by Dr Benja MD ,PGY1. Plan of care was discussed with the attending physician and resident physician. Disclaimer: Despite multiple revisions, due to the dictation software being used, the document bellow may not be free of grammatical errors including phonetic/typographic errors. However, this does not deter from our commitment to providing health care in the patient's best interest in mind. Dr. Cheyenne MD, PGY 2 Documentation for date of: 04/17/24 Subjective Subjective Interval history: Patient is a 61-year-old male with a past medical history of diabetes mellitus type 2 insulin-dependent (on 40 and 10 glargine), HLD, HTN, history of lumbar back surgery secondary to abscess, history of stroke (2019) w/ stents and pacemaker (2019) who was admitted for bilateral osteomyelitis. No overnight events reported by patient. Patient examined at bedside. 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 Patient also stated he has a past medical history of lumbar abscess and spinal surgery status post rods and screws. History of stroke with pacemaker added in 2019 (not noted on previous chest x-ray from that year). Patient stated only mild pain at the lower extremities. History of neuropathy per patient patient cannot recall when injury occurred. Stated he had been having drainage of lower extremities for several weeks now. Noted foul-smelling odor. Denied fevers denied chills. No surgical intervention per Dr. Bradford. Exam Vital Signs Temp Pulse Resp BP Pulse Ox O2 Del Method 97.1 F 72 18 111/84 98 Room Air 04/17/24 08:00 04/17/24 08:00 04/17/24 08:00 04/17/24 08:00 04/17/24 08:00 04/17/24 08:00 Narrative Exam General Appearance: Alert & Oriented X3, well-nourished male who is lying in bed in no acute distress.Mild discharge noted. HEENT: Skull symmetrical and atraumatic. Conjunctivae pin and moist. Pupils equal, round, reactive to light and accommodation (PERRL). External ear without lesion or discharge. Straight, nares patient, mucosa pink, no discharge. No thyroid nodule appreciated. No cervical lymphadenopathy. Cardio: Normal Rate and Rhythm with S1 and S2 heart sounds. No murmurs or extra heart sounds auscultated. No bruits on carotid auscultation. No peripheral edema or cyanosis. Lungs: Symmetric with good expansion. Chest and back non-tender. Breath sounds vesicular without crackles, wheezing or rhonchi Abdomen: Non-tender, Non-distended, Normal Reactive Bowel Sounds Neuro: Alert, cooperative, oriented to person, place, and time. Speech clear. CN grossly intact. Upper motor strength 5/5 and Lower motor strength 5/5. Sensation intact. Objective Labs 04/18/24 04:45 04/18/24 04:45 Labs: Laboratory Results - last 24 hr 04/16/24 04/16/24 04/17/24 12:10 17:15 04:42 WBC 8.6 RBC 3.79 L Hgb 11.2 L Hct 34.2 L MCV 90 MCH 29.6 MCHC 32.7 RDW Std Deviation 44.3 H Plt Count 260 Neut % (Auto) 59 Lymph % (Auto) 27 [place] % (Auto) 11 Eos % (Auto) 2 Baso % (Auto) 1 Neut # (Auto) 5.0 Lymph # (Auto) 2.3 [place] # (Auto) 1.0 H Eos # (Auto) 0.2 Baso # (Auto) 0.1 Immature Gran # (Auto) 0.02 H Absolute Nucleated RBC 0.00 Immature Gran % 0 Nucleated RBC % 0 ESR 52 H PT 11.4 INR 1.0 APTT 28.2 Sodium 138 141 Potassium 4.4 4.6 Chloride 102 105 Carbon Dioxide 27.5 25.4 Anion Gap 9 11 BUN 32 H 34 H Creatinine 1.3 1.4 H Estim Creat Clear Calc 49.1 L 45.8 L eGFR 60 55 L BUN/Creatinine Ratio 25 H 24 H Glucose [address] Glu mg/dL 280 H Hemoglobin A1c 11.4 H Calculated Osmolality 289 291 Lactic Acid 1.5 Calcium 9.5 9.1 Corrected Calcium 9.5 9.1 Phosphorus 4.8 Magnesium 2.6 Total Bilirubin 0.3 0.4 AST 12 13 ALT 11 8 L Alkaline Phosphatase 116 94 D C-Reactive Prot, Quant 2.3 H Total Protein 8.7 H 7.7 Albumin 4.8 4.2 D Globulin 3.9 H 3.5 Albumin/Globulin Ratio 1.2 1.2 Procalcitonin 0.12 Quality Measures Quality Measures none Advance care planning discussed with:: patient Assessment & Plan Assessment Current Active Medications: Generic Name Dose Route Start Last Admin Trade Name Freq PRN Reason Stop Dose Admin Acetaminophen 650 mg 04/16/24 21:25 Acetaminophen 325 Mg Tablet PO 05/16/24 21:24 Q6H PRN Fever >101.5 Acetaminophen 650 mg 04/16/24 21:25 Acetaminophen 325 Mg Tablet PO 05/16/24 21:24 Q6H PRN PAIN SCALE 1-3 (mild Atorvastatin Calcium 20 mg 04/17/24 21:00 Atorvastatin Calcium 20 Mg Tablet PO 05/17/24 20:59 HS YELITZA Dextrose 25 ml 04/16/24 21:29 Dextrose 50%-Water Inj 50 Ml Syringe IV 05/16/24 21:28 Q15MIN PRN BG 50-70 responsive npo pt Dextrose 50 ml 04/16/24 21:29 Dextrose 50%-Water Inj 50 Ml Syringe IV 05/16/24 21:28 Q15MIN PRN BG <50 OR BG <70 & pt unresponsive Glucagon 1 mg 04/16/24 21:29 Glucagon Inj 1 Mg Vial IM Q15MIN PRN BG <70, and no IV access Heparin Sodium (Porcine) 5,000 unit 04/17/24 21:00 Heparin Sod Inj 5000 Unit/Ml Vial SC 05/01/24 20:59 Q12H YELITZA Hydromorphone HCl 1 mg 04/16/24 21:25 Hydromorphone Inj 2 Mg/Ml Vial IVP 04/21/24 21:24 Q2H PRN Pain 7-10 Piperacillin/Tazobactam/Dextrose 50 mls @ 12.5 mls/hr 04/17/24 06:00 04/17/24 05:40 Zosyn IV 04/24/24 05:59 12.5 mls/hr Q8HR YELITZA Administration Vancomycin/Sodium Chloride 100 mls @ 120 mls/hr 04/17/24 10:00 04/17/24 09:38 Vancomycin/Ns 500 Mg Ivpb IV 04/24/24 09:59 120 mls/hr Q12HR@1000,2200 YELITZA Administration Insulin Glargine 25 unit 04/17/24 09:00 04/17/24 09:37 Insulin Glargine (Lantus) 5 Unit/0.05 Ml (Per 5 Units) SC 05/17/24 08:59 25 unit QDAY YELITZA Administration Insulin Human Lispro 0 unit 04/17/24 11:30 04/17/24 11:53 Insulin Lispro (Admelog) 1 Unit/0.01 Ml Unit SC 05/17/24 11:29 4 unit AC YELITZA Administration Protocol Labetalol HCl 10 mg 04/17/24 02:30 Labetalol Inj 5 Mg/Ml Vial 20 Ml IVP 05/17/24 02:29 Q2H PRN SBP more than 180 Ondansetron HCl 4 mg 04/16/24 21:25 Ondansetron Inj 2 Mg/Ml Inj 2 Ml IV 05/16/24 21:24 Q6H PRN NAUSEA OR VOMITING Protocol Oxycodone/Acetaminophen 1 tab 04/16/24 21:25 Oxycodone/Apap 5/325 Tablet PO 04/21/24 21:24 Q6H PRN PAIN SCALE 4-6 (Moderate Pantoprazole Sodium 40 mg 04/17/24 09:00 04/17/24 09:38 Pantoprazole 40 Mg Tablet PO 05/17/24 08:59 40 mg QDAY [facility] Administration Pharmacy Consult 1 each 04/17/24 09:00 Vancomycin Pharmacy To Dose 1 Each Each IV 05/17/24 08:59 QDAY PRN CONSULT Plan Patient is a 61-year-old male with a past medical history of diabetes mellitus type 2 insulin-dependent (on 40 and 10 glargine), HLD, HTN, history of lumbar back surgery secondary to abscess, history of stroke (2019) w/ stents and pacemaker (2019) who was admitted for bilateral osteomyelitis. #Right foot osteomyelitis #Left foot osteomyelitis #Diabetic Ulcer #soft tissue infection Patient stated he is not sure when wound first started but has been present for several months, likely secondary to diabetic mellitus and diabetic ulcers. Possible PICC line, pending rec form Dr. Grissom. No surgical intervention per Dr. Bradford. Diagnostics: Bilateral foot x-ray showed osteomyelitis of the right foot fourth and fifth metatarsal and distal third metatarsal bones, it also showed left foot fourth metatarsal osteomyelitis. Plan ? [facility] General Surgery consultation was ordered, follow-up on recommendations ? Start the patient on vancomycin and Zosyn (04/16?) ? Pending Blood Cultures -Wound Cultures if taken to OR ? Daily CBC and CMP ? Wound care ? Pain management as per protocol -Consult Infectious Disease, Dr. Grissom, for possible PICC line - Consult general surgery, Dr. Bradford, appreciate recommendtions #Uncontrolled insulin-dependent diabetes mellitus Type 2 #Medicine illiteracy Patient has uncontrolled diabetes mellitus. Last A1c 12.5 in March. Plan -Follow with fasting blood glucose ? Insulin sliding scale ? Insulin glargine 25 international units daily ? Hypoglycemia protocol in place ? Carb consistent diet ? Diabetic education #History of hypertension Patient may be taking captoril 25 mg PO Qday, given blood pressure within normal reading and one soft blood pressure. Hold home medication. Revaluate tomorrow and restart as needed. Plan -Albumin/Cr Urine ordered ?Labetalol 10 mg every 2 hours as needed IV if SBP more than 180 -Hold home medication of Captoril given soft blood pressure readings. #Hyperlipedimia #hx Stroke Past medical history of HLD on Simvastatin 20 mg HS. Restart Atorvastatin in patinet Diagnostic: previous lipid panel (12/25/2023): Triglycerides 101, cholesterol 147, HDL 31, LDL 96 ASCVD risk 26.7% risk of cardiovascular event Plan -Atorvastatin 20 mg HS -Consider starting high statin for patient tomorrow Hospital Maintenance: FEN: Carb consistent diet DVT ppx: Heparin subcu GI ppx: Protonix IV lines: PIV Hodge: None Code status: Full code Dispo: MedSurg - The patient's plan was discussed with attending Dr. Hancock and senior residents Dr. Cheyenne Yousif MD PGY1 Internal Medicine Attending Provider Attestation/Addendum I attest that I was physically present for the evaluation, physical examination, lab and imaging review of the patient with the residents. I discussed the case with the residents and agree with the findings and plans of care as documented above. Patient is a overnight admission for diabetic foot with osteomyelitis. Currently on empiric IV antibiotics. Surgery on board. We will obtain ID consult for further antibiotics recommendations. Awaiting blood cultures. Wound care and analgesics in place. On Insulin regimen for blood glucose control. Peter Hancock MD
--- NOTE | 2024-04-17 12:51 | PD.SURCONS ---
HPI Consult details History of present illness: 69M with HTN, HLD, DMII presenting with bilateral foot wounds. Pt noted drainage from the right foot wound but denies any current pain, fever, chills or malaise. Pt underwent xray showing osteomyelitis of right 4-5th metatarsals and 3rd distal metatarsal, as well as left foot 4th metatarsal. His WBC is 8.6, A1c 11.4, procal 0.12 Review of Systems Review of Systems ROS Unobtainable: All systems reviewed & no additional complaints except as documented Meds Home Medications and Allergies Home Medications ?Medication ?Instructions ?Recorded ?Confirmed ?Type Glyburide/Metformin * (GLUCOVANCE 1 tab PO TIDWM #0 tabs 09/01/13 12/11/20 History 5/500 *) captopril 25 mg tablet 25 mg PO QDAY #0 tabs 09/14/16 12/11/20 History Allergies Allergy/AdvReac Type Severity Reaction Status Date / Time No Known Allergies Allergy Verified 04/16/24 11:23 Exam Vital Signs Temp Pulse Resp BP Pulse Ox O2 Del Method 97.1 F 72 18 111/84 98 Room Air 04/17/24 08:00 04/17/24 08:00 04/17/24 08:00 04/17/24 08:00 04/17/24 08:00 04/17/24 08:00 Constitutional Constitutional: no acute distress Routine Respiratory Exam Respiratory: Present no resp distress Routine Extremities Exam Comments: left foot warm, dry ulcerations on the plantar surface of the foot with no necrotic tissue, no erythema or fluctuance right foot warm, purulent drainage lateral to great toe with eschar at plantar surface of foot, no necrotic tissue, no erythema or fluctuance Results Results: Laboratory Laboratory results: results reviewed Results: Imaging Imaging narrative: foot xray reviewed Assessment & Plan Plan 69M with HTN, HLD, DMII (A1c 11.4) presenting with osteomyelitis of left and right metatarsals and drainage from the right foot. On exam there is no necrotic tissue nececessitating debridement and no indication that amputation is necessary; pt can be treated with abx and improved glucose control Appreciate ID recs Refer to Wound Healing as outpt
[2024-04-17] MEDS: ATORVASTATIN CALCIUM 20 MG TABLET PO (20:30)
[2024-04-18] VITALS: BP 140/91; PULSE 75; RESP 17; TEMP 36.6; O2SAT 99
[2024-04-18 04:00] VITALS: BP 121/65; PULSE 74; RESP 17; TEMP 36.7; O2SAT 97
--- NOTE | 2024-04-18 04:57 | PD.RESEVENT ---
Documentation for date of: 04/18/24
[2024-04-18] MEDS: PIPER/TAZO 3.375 GM 50 ML IV ×2 (05:14→14:28)
[2024-04-18 05:53] LABS: Basophils # (Auto) 0.1 Thou/mm3 (0.0-0.2); Basophils % (Auto) 1 % (0-2.5); Eosinophils # (Auto) 0.2 Thou/mm3 (0.0-0.5); Eosinophils % (Auto) 2 % (0-10); Hematocrit 32.8 % (41.0-53.0); Hemoglobin 10.6 g/dL (13.5-16.0); Immature Granulocytes % (Auto) 0 % (0-0); Immature Granulocytes Auto 0.02 Thou/mm3 (0.00-0.00); Lymphocytes # (Auto) 2.1 Thou/mm3 (1.0-4.8); Lymphocytes % (Auto) 28 % (10-50); Mean Corpuscular HGB Conc 32.3 g/dl (31.0-37.0); Mean Corpuscular Hemoglobin 28.9 pg (25.0-35.0); Mean Corpuscular Volume 89 fL (80-100); Monocytes # (Auto) 0.8 Thou/mm3 (0.0-0.8); Monocytes % (Auto) 11 % (0-12); Neutrophils # (Auto) 4.4 Thou/mm3 (1.8-7.7); Neutrophils % (Auto) 58 % (37-80); Nucleated Red Blood Cell % 0 /100 WBC (0); Platelet Count 261 Thou/mm3 (140-440); Red Blood Count 3.67 Miln/mm3 (4.50-5.90); White Blood Count 7.5 Thou/mm3 (3.8-10.6)
[2024-04-18 06:23] LABS: Alanine Aminotransferase 82 U/L (10-49); Albumin/Globulin Ratio 1.2 (1.2-2.2); Alkaline Phosphatase 200 U/L (46-116); Anion Gap 10 (7-16); Aspartate Amino Transferase 77 U/L (0-34); BUN/Creatinine Ratio 22 Ratio (12-20); Bilirubin,Total 0.3 mg/dL (0.3-1.2); Blood Urea Nitrogen 31 mg/dL (9-23); Calcium 8.7 mg/dL (8.3-10.6); Calcium (Corrected) 8.7 mg/dL (8.5-10.1); Carbon Dioxide 24.1 mMol/L (20.0-31.0); Chloride 106 mMol/L (98-107); Creatinine (Component) 1.4 mg/dL (0.6-1.3); Estimated Creatinine Clearance 45.8 mL/min (>60); Globulin 3.3 gm/dL (2.3-3.5); Glucose 94 mg/dL (74-106); Magnesium 2.5 mg/dL (1.6-2.6); Osmolality,Calculated 285 (275-295); Phosphorous 4.5 mg/dL (2.4-5.1); Potassium 3.9 mMol/L (3.4-5.1); Sodium 140 mMol/L (136-145); Thyroid Stimulating Hormone 6.43 uIU/mL (0.55-4.78); Total Protein 7.3 gm/dL (5.7-8.2); eGFR 55 See Note
[2024-04-18 08:00] VITALS: BP 122/67; PULSE 70; RESP 16; TEMP 36.7; O2SAT 96
[2024-04-18 08:18] LABS: Free T4 (Free Thyroxine) 0.98 ng/dL (0.89-1.76)
[2024-04-18 09:00] LABS: Vancomycin,Trough 8.3 mcg/mL (5.0-10.0)
[2024-04-18 09:17] LABS: Creatinine MALB Rnd Ur 96 mg/dL (30-125); Microalbumin Creat Ratio 142 mg/gCrea (<30); Microalbumin, Random Urine 136 mg/L (0-300)
[2024-04-18] MEDS: HEPARIN SOD INJ 5000 UNIT/ML VIAL SC ×2 (09:28→20:34)
[2024-04-18] MEDS: INSULIN GLARGINE (Lantus) 5 UNIT/0.05 ML (PER 5 UNITS) 25 UNIT SC (09:28)
--- NOTE | 2024-04-18 09:51 | PC.SS ---
This is 69-year-old, , single male who presented to the ED due to suffering from right foot pain. Patient appeared alert and oriented to self, place and situation. Patient was pleasant. Patient reported that he resides alone in a home. However, he has 4 sons that assist him as needed. Patient reported being semi-independent with ADLs. He uses a FWW. He also has a pubic catheter. Patient's PCP is [facility]. Patient assigned his son, Hill Lau, as his medical decision maker. When medically clear, patient plans to return home (he is currently receiving home health); he does not need transportation. Discharge plan: Home with home health Next of kin: Hill Lau, son.
[2024-04-18] MEDS: VANCOMYCIN/WATER 1250 MG IVPB 250 ML 120 MG IV (10:05)
[2024-04-18 12:00] VITALS: BP 138/70; PULSE 72; RESP 16; TEMP 36.5; O2SAT 96
[2024-04-18] MEDS: INSULIN LISPRO (AdmeLOG) 1 UNIT/0.01 ML UNIT SC ×2 (12:21→17:18)
--- NOTE | 2024-04-18 13:43 | ESPR_ITS ---
Documentation for date of: 04/18/24 Subjective Subjective Interval history: Patient is a 61-year-old male with a past medical history of diabetes mellitus type 2 insulin-dependent (on 40 and 10 glargine), HLD, HTN, history of lumbar back surgery secondary to abscess, history of stroke (2019) w/ stents and pacemaker (2019) who was admitted for bilateral osteomyelitis. No overnight events reported. Patient has a suprpubic catheter since 2019. Patient denied pyrexia or chills overnight. Negative for lower extremity foot pain. Pending negative blood cultures to add PICC line, will likely need home health. Dr. Grissom will follow up with patient on 04/19/2023. Exam Vital Signs Temp Pulse Resp BP Pulse Ox O2 Del Method 98.1 F 70 16 122/67 96 Room Air 04/18/24 08:00 04/18/24 08:00 04/18/24 08:00 04/18/24 08:00 04/18/24 08:00 04/18/24 08:00 Narrative Exam General Appearance: Alert & Oriented X3, well-nourished male who is lying in bed in no acute distress HEENT: Skull symmetrical and atraumatic. Conjunctivae pink and moist. Pupils equal, round, reactive to light and accommodation (PERRL). External ear without lesion or discharge. Straight, nares patient, mucosa pink, no discharge. Cardio: Normal Rate and Rhythm with S1 and S2 heart sounds. No murmurs or extra heart sounds auscultated. No bruits on carotid auscultation. No peripheral edema or cyanosis. Lungs: Symmetric with good expansion. Chest and back non-tender. Breath sounds vesicular without crackles, wheezing or rhonchi Abdomen: Mild diffuse tenderness, Non-distended, Normal Reactive Bowel Sounds Neuro: Alert, cooperative, oriented to person, place, and time. Speech clear. CN grossly intact. Upper motor strength 5/5 and Lower motor strength 5/5. Sensation intact. Objective Labs 04/18/24 04:45 04/18/24 04:45 Labs: Laboratory Results - last 24 hr 04/18/24 04/18/24 04/18/24 04:45 07:00 08:25 WBC 7.5 RBC 3.67 L Hgb 10.6 L Hct 32.8 L MCV 89 MCH 28.9 MCHC 32.3 RDW Std Deviation 45.0 H Plt Count 261 Neut % (Auto) 58 Lymph % (Auto) 28 [place] % (Auto) 11 Eos % (Auto) 2 Baso % (Auto) 1 Neut # (Auto) 4.4 Lymph # (Auto) 2.1 [place] # (Auto) 0.8 Eos # (Auto) 0.2 Baso # (Auto) 0.1 Immature Gran # (Auto) 0.02 H Absolute Nucleated RBC 0.00 Immature Gran % 0 Nucleated RBC % 0 Sodium 140 Potassium 3.9 D Chloride 106 Carbon Dioxide 24.1 Anion Gap 10 BUN 31 H Creatinine 1.4 H Estim Creat Clear Calc 45.8 L eGFR 55 L BUN/Creatinine Ratio 22 H Glucose 94 D Calculated Osmolality 285 Calcium 8.7 Corrected Calcium 8.7 Phosphorus 4.5 Magnesium 2.5 Total Bilirubin 0.3 AST 77 H ALT 82 H Alkaline Phosphatase 200 H D Total Protein 7.3 Albumin 4.0 Globulin 3.3 Albumin/Globulin Ratio 1.2 TSH 6.43 H Free T4 0.98 Ur Random Microalbumin 136 U Creat (Microalbumin) 96 Microalb/Creat Ratio 142 H Vancomycin Trough 8.3 Quality Measures Quality Measures none Advance care planning discussed with:: patient Assessment & Plan Assessment Current Active Medications: Generic Name Dose Route Start Last Admin Trade Name Freq PRN Reason Stop Dose Admin Acetaminophen 650 mg 04/16/24 21:25 Acetaminophen 325 Mg Tablet PO 05/16/24 21:24 Q6H PRN Fever >101.5 Acetaminophen 650 mg 04/16/24 21:25 Acetaminophen 325 Mg Tablet PO 05/16/24 21:24 Q6H PRN PAIN SCALE 1-3 (mild Atorvastatin Calcium 20 mg 04/17/24 21:00 04/17/24 20:30 Atorvastatin Calcium 20 Mg Tablet PO 05/17/24 20:59 20 mg HS YELITZA Administration Dextrose 25 ml 04/16/24 21:29 Dextrose 50%-Water Inj 50 Ml Syringe IV 05/16/24 21:28 Q15MIN PRN BG 50-70 responsive npo pt Dextrose 50 ml 04/16/24 21:29 Dextrose 50%-Water Inj 50 Ml Syringe IV 05/16/24 21:28 Q15MIN PRN BG <50 OR BG <70 & pt unresponsive Glucagon 1 mg 04/16/24 21:29 Glucagon Inj 1 Mg Vial IM Q15MIN PRN BG <70, and no IV access Heparin Sodium (Porcine) 5,000 unit 04/17/24 21:00 04/18/24 09:28 Heparin Sod Inj 5000 Unit/Ml Vial SC 05/01/24 20:59 5,000 unit Q12H YELITZA Administration Hydromorphone HCl 1 mg 04/16/24 21:25 Hydromorphone Inj 2 Mg/Ml Vial IVP 04/21/24 21:24 Q2H PRN Pain 7-10 Piperacillin/Tazobactam/Dextrose 50 mls @ 12.5 mls/hr 04/17/24 06:00 04/18/24 05:14 Zosyn IV 04/24/24 05:59 12.5 mls/hr Q8HR YELITZA Administration Vancomycin HCl 250 mls @ 120 mls/hr 04/18/24 10:00 04/18/24 10:05 Vancomycin/Water 1250 Mg Ivpb IV 04/25/24 09:59 120 mls/hr QDAY@1000 YELITZA Administration Insulin Glargine 25 unit 04/17/24 09:00 04/18/24 09:28 Insulin Glargine (Lantus) 5 Unit/0.05 Ml (Per 5 Units) SC 05/17/24 08:59 25 unit QDAY YELITZA Administration Insulin Human Lispro 0 unit 04/17/24 11:30 04/18/24 12:21 Insulin Lispro (Admelog) 1 Unit/0.01 Ml Unit SC 05/17/24 11:29 4 unit AC YELITZA Administration Protocol Labetalol HCl 10 mg 04/17/24 02:30 Labetalol Inj 5 Mg/Ml Vial 20 Ml IVP 05/17/24 02:29 Q2H PRN SBP more than 180 Ondansetron HCl 4 mg 04/16/24 21:25 Ondansetron Inj 2 Mg/Ml Inj 2 Ml IV 05/16/24 21:24 Q6H PRN NAUSEA OR VOMITING Protocol Oxycodone/Acetaminophen 1 tab 04/16/24 21:25 Oxycodone/Apap 5/325 Tablet PO 04/21/24 21:24 Q6H PRN PAIN SCALE 4-6 (Moderate Pantoprazole Sodium 40 mg 04/17/24 09:00 04/18/24 09:29 Pantoprazole 40 Mg Tablet PO 05/17/24 08:59 Not Given QDAY [facility] Pharmacy Consult 1 each 04/17/24 09:00 Vancomycin Pharmacy To Dose 1 Each Each IV 05/17/24 08:59 QDAY PRN CONSULT Plan Patient is a 61-year-old male with a past medical history of diabetes mellitus type 2 insulin-dependent (on 40 and 10 glargine), HLD, HTN, history of lumbar back surgery secondary to abscess, history of stroke (2019) w/ stents and pacemaker (2019) who was admitted for bilateral osteomyelitis. #Right foot osteomyelitis #Left foot osteomyelitis #Diabetic Ulcer #soft tissue infection Patient stated he is not sure when wound first started but has been present for several months, likely secondary to diabetic mellitus and diabetic ulcers. Possible PICC line, pending rec form Dr. Grissom. No surgical intervention per Dr. Bradford. Diagnostics: Bilateral foot x-ray showed osteomyelitis of the right foot fourth and fifth metatarsal and distal third metatarsal bones, it also showed left foot fourth metatarsal osteomyelitis. -Blood Culture Negative After 48 hours Plan ? Start the patient on vancomycin and Zosyn (04/16?) -PT and INR with morning labs in anticipation of PICC line tomorrow. -Wound care -Would Culture if paitnet taken to OR -Hepatitis C Antibody, placed by Infectious Disease. ? Pain management as per protocol -Consult Infectious Disease, Dr. Grissom, for possible PICC line - Consult general surgery, Dr. Bradford, appreciate recommendations #Uncontrolled insulin-dependent diabetes mellitus Type 2 #Medicine illiteracy Patient has uncontrolled diabetes mellitus. Last A1c 12.5 in March. Total of 13 units of sliding Lispro given for , no change to Glargine given fasting glucose of 94. Plan -Follow with fasting blood glucose ? Insulin sliding scale ? Insulin glargine 25 international units daily ? Hypoglycemia protocol in place ? Carb consistent diet ? Diabetic education #History of hypertension Patient may be taking captoril 25 mg PO Qday, given blood pressure within normal reading and one soft blood pressure. Hold home medication. Revaluate tomorrow and restart as needed. Diagnostics: Urine Microalbumin 587, Creatinine 129, Ratio 455 Plan -consider adding Lisinopril if blood pressure increases ?Labetalol 10 mg every 2 hours as needed IV if SBP more than 180 -Hold home medication of Captoril given blood pressure readings within normal range #Hyperlipedimia #hx Stroke #Elevated Transaminitis Past medical history of HLD on Simvastatin 20 mg HS. Given elevated Transaminitis currently holding Atorvastatin, but likely reactive. Diagnostic: previous lipid panel (12/25/2023): Triglycerides 101, cholesterol 147, HDL 31, LDL 96 ASCVD risk 26.7% risk of cardiovascular event Plan -Hepatitis C ordered -Atorvastatin 20 mg HS-HOLD -Consider starting high statin for patient tomorrow Hospital Maintenance: FEN: Carb consistent diet DVT ppx: Heparin subcu GI ppx: Protonix IV lines: PIV Hodge: None Code status: Full code Dispo: MedSurg - The patient's plan was discussed with attending Dr. Hancock and senior residents Dr. Michelet Yousif MD PGY1 Internal Medicine Senior Resident Attestation: I discussed with and supervised the internal medicine veterinary technician physician involved in the care of this patient. I personally saw and examined the patient and discussed the assessment and plan with the entire medicine team, including my attending. I agree with the assessment and plan as documented above. Patient seen examined at bedside. No overnight events. Labs, vital signs reviewed. Patient has osteomyelitis bilateral lower extremities. Patient is on IV antibiotics. Pending for infectious disease to recommend the next course of treatment. Possible PICC line placement tomorrow for IV antibiotics. - Patient's care was discussed with my attending physician. Vern Tafoya MD Internal Medicine PGY-3 Attending Provider Attestation/Addendum I attest that I was physically present for the evaluation, physical examination, lab and imaging review of the patient with the residents. I discussed the case with the residents and agree with the findings and plans of care as documented above. At bedside, patient states he is feeling well and does not have new complaints. General surgery on board, recommended medical management. Continues to be on IV antibiotics. Awaiting culture results. Peter Hancock MD
[2024-04-18 16:00] VITALS: BP 160/77; PULSE 72; RESP 16; TEMP 36.9; O2SAT 96
[2024-04-18 20:00] VITALS: BP 119/70; PULSE 69; RESP 17; TEMP 36.6; O2SAT 96
[2024-04-18] MEDS: ATORVASTATIN CALCIUM 20 MG TABLET PO (20:31)
[2024-04-19] VITALS (10 sets, daily range): BP systolic 124–170; BP diastolic 68–86; PULSE 67–73; RESP 16–19; TEMP 36.1–37.1; O2SAT 95–98
[2024-04-19] MEDS: PIPER/TAZO 3.375 GM 50 ML IV ×2 (00:16→05:19)
--- NOTE | 2024-04-19 05:17 | PC.NURSE ---
pt. is refusing blood draws for lab, educated on importance and need of blood draw, pt. still refusing
[2024-04-19] MEDS: PANTOPRAZOLE 40 MG TABLET PO (09:52)
[2024-04-19] MEDS: HEPARIN SOD INJ 5000 UNIT/ML VIAL SC ×2 (09:52→20:26)
[2024-04-19] MEDS: VANCOMYCIN/WATER 1250 MG IVPB 250 ML 120 MG IV (09:52)
--- NOTE | 2024-04-19 09:55 | ESPR_ITS ---
Subjective Subjective Interval history: dm and other problems as noted. no surgery planned. Exam Vital Signs Temp Pulse Resp BP Pulse Ox O2 Del Method 97.4 F 73 19 134/68 H 95 Room Air 04/19/24 08:00 04/19/24 08:00 04/19/24 08:00 04/19/24 08:00 04/19/24 08:00 04/19/24 08:00 Narrative Exam see dictation Objective - Internal Medicine Labs 04/18/24 04:45 04/18/24 04:45 Assessment & Plan A&P Narrative osteo of feet, see imaging dm II htn control dm and other health problems ok to try 6 weeks rocephin 2gm/day and po doxy, am not excited to yovana the germs on swab cx with neg gram stain. please only get surgical cx and the gram stain has value too. if you want to yovana the germs listed, then you will have to get approval for ertapenem 1 gm iv daily and vanco and manage that as you desire. if you follow my recs, then get weekly cbc, renal panel and esr and remove line at end of rx. I will see again prn. enterococcus is covered by vanco in most cases. as is the coag neg stevieh, both are R to doxy and [facility] Time Spent With Patient Time: Total time spent is greater than 50% in coordination of care (as documented) at patient's floor/unit and/or counseling patient:
[2024-04-19] MEDS: INSULIN GLARGINE (Lantus) 5 UNIT/0.05 ML (PER 5 UNITS) 25 UNIT SC (09:58)
--- NOTE | 2024-04-19 10:05 | XR_ITS ---
Examination: Ultrasound-guided needle placement right basilic vein. Dual-lumen central line placement (PICC line). Fluoroscopy AP chest, portable, single view Exam date and time:April 19, 2024 1456 hours INDICATIONS: Osteomyelitis, need for long-term intravenous antibiotic therapy A timeout was completed verifying correct patient, procedure, site, positioning Informed consent provided Technique: The patient's site was prepped and draped in sterile fashion. Maximum Sterile Barrier Technique used including cap, mask, sterile gown, sterile gloves, and sterile full body drape. If ultrasound technique used: sterile gel and sterile probe covers. Hand Hygiene performed using proper scrub, soap and water, or alcohol-based hand rub. Site right portable apparatus utilized to confirm patency of the right basilic vein Utilizing ultrasonographic guidance successful 21-gauge needle puncture into the right basilic vein Ultrasound images recorded and stored. 5 cc 1% lidocaine administered for local anesthetic. Successful micropuncture with a 21-gauge needle is performed. 0.18 wire guide is then introduced into the SVC under fluoroscopic guidance. Dual-lumen catheter dilator is then introduced, followed by the catheter in the SVC and proper position under fluoroscopic guidance. Successful aspiration of blood and flushing with heparinized saline is then performed in the 2 venous limbs. The catheter sutured in place. Findings: Under fluoroscopy, the tip of the catheter is in good position in the vena cava. Portable chest x-ray, post line placement is ordered. Estimated blood loss 3 cc The patient tolerated the procedure well and was in stable and satisfactory condition at completion of the procedure Impression: Successful ultrasound-guided needle placement right basilic vein Successful placement of dual lumen central line, percutaneous Fluoroscopy 0.1 minute radiation dose 0.98 milligray 1 spot fluoroscopic chest film. AP chest completion procedure demonstrates satisfactory position central line. May use central line.
--- NOTE | 2024-04-19 10:25 | PC.SS ---
SS spoke to pt son Hill [phone] in regards to pt HH establishment, per Hill he does not know the agency but provided #[phone] which is aligned with [facility]. SS updated [place] VEE Mack
--- NOTE | 2024-04-19 10:42 | PC.CC ---
Addendum entered by Martina Argueta RN 04/19/24 14:31: Pt is booked with [facility], pt pending picc line and dc Original Note: Pt is open to [facility], referral sent to [facility] and to infusion pharmacy for antibiotics, waiting for responses
[2024-04-19 11:08] LABS: Basophils # (Auto) 0.1 Thou/mm3 (0.0-0.2); Basophils % (Auto) 1 % (0-2.5); Eosinophils # (Auto) 0.2 Thou/mm3 (0.0-0.5); Eosinophils % (Auto) 3 % (0-10); Hematocrit 36.5 % (41.0-53.0); Hemoglobin 11.9 g/dL (13.5-16.0); Immature Granulocytes % (Auto) 0 % (0-0); Immature Granulocytes Auto 0.03 Thou/mm3 (0.00-0.00); Lymphocytes # (Auto) 1.9 Thou/mm3 (1.0-4.8); Lymphocytes % (Auto) 26 % (10-50); Mean Corpuscular HGB Conc 32.6 g/dl (31.0-37.0); Mean Corpuscular Volume 89 fL (80-100); Monocytes # (Auto) 0.6 Thou/mm3 (0.0-0.8); Monocytes % (Auto) 8 % (0-12); Neutrophils # (Auto) 4.5 Thou/mm3 (1.8-7.7); Neutrophils % (Auto) 62 % (37-80); Nucleated Red Blood Cell % 0 /100 WBC (0); Platelet Count 269 Thou/mm3 (140-440); White Blood Count 7.3 Thou/mm3 (3.8-10.6)
[2024-04-19 11:22] LABS: INR 1.1 (0.9-1.3); Partial Thromboplastin Time 28.7 Seconds (22.0-36.0); Prothrombin Time 11.8 Seconds (9.0-12.2)
[2024-04-19 11:34] LABS: Alanine Aminotransferase 48 U/L (10-49); Albumin, Serum 4.4 gm/dL (3.4-4.8); Albumin/Globulin Ratio 1.3 (1.2-2.2); Alkaline Phosphatase 172 U/L (46-116); Anion Gap 6 (7-16); Aspartate Amino Transferase 31 U/L (0-34); BUN/Creatinine Ratio 18 Ratio (12-20); Bilirubin,Total 0.3 mg/dL (0.3-1.2); Blood Urea Nitrogen 22 mg/dL (9-23); Carbon Dioxide 27.2 mMol/L (20.0-31.0); Chloride 103 mMol/L (98-107); Creatinine (Component) 1.2 mg/dL (0.6-1.3); Estimated Creatinine Clearance 53.4 mL/min (>60); Globulin 3.5 gm/dL (2.3-3.5); Glucose 161 mg/dL (74-106); Magnesium 2.4 mg/dL (1.6-2.6); Osmolality,Calculated 278 (275-295); Phosphorous 3.8 mg/dL (2.4-5.1); Sodium 136 mMol/L (136-145); Total Protein 7.9 gm/dL (5.7-8.2); eGFR > 60 See Note
--- NOTE | 2024-04-19 11:46 | XR_ITS ---
Examination: Arterial duplex lower extremity study. Date and time of exam: April 19, 2024 1546 hours INDICATIONS: Leg pain beginning 2 years ago Findings: Duplex sonographic imaging of the lower extremity arteries using B-mode/Mi scale imaging and Doppler spectral analysis and color flow. Ankle brachial indices have been recorded. Right common femoral artery demonstrates triphasic flow. Right superficial femoral artery demonstrates triphasic flow. Right popliteal artery demonstrates triphasic flow. Right posterior tibial artery demonstrated monophasic flow. Right ankle/brachial index unable to obtain Left common femoral artery demonstrates biphasic flow. Left superficial femoral artery demonstrates biphasic flow. Left popliteal artery demonstrates biphasic flow. Left posterior tibial artery demonstrated biphasic flow. Left ankle/brachial index is 1.0. Impression: Abnormal arterial waveforms bilaterally suspicious for obstructive arterial disease Recommend correlation with CTA abdominal aorta iliofemoral runoff post intravenous contrast
[2024-04-19] MEDS: INSULIN LISPRO (AdmeLOG) 1 UNIT/0.01 ML UNIT SC ×2 (11:56→17:12)
[2024-04-19] MEDS: cefTRIAXone 2 GM in SODIUM CHLORIDE 0.9% (P) 50 ML IV (12:04)
[2024-04-19] MEDS: DOXYCYCLINE 100 MG TABLET PO ×2 (12:05→20:26)
[2024-04-19 12:06] LABS: Hepatitis C Antibody Non Reactive (Non React)
--- NOTE | 2024-04-19 12:56 | ESCONSULT_ITS ---
RE: BECKY [place] : 1955 DATE OF CONSULTATION: 04/19/2024 REFERRING PHYSICIAN: Dr. Phillip. REASON FOR CONSULTATION: Osteomyelitis of both feet. HISTORY OF PRESENT ILLNESS: The patient is an unfortunate 69-year-old man with osteomyelitis of both feet. He is diabetic, uncontrolled with an A1c of 11.4 as well and has hypertension based on his home medications. He is somewhat unaware that his diabetes control is suboptimal. His surgeries include only the left foot. There is evidence of osteomyelitis of the left fourth metatarsal on imaging and the right fourth and fifth metatarsals. No surgery is planned. He has already had surgery on the left foot. He has chronic kidney disease as well as BPH and there is a questionable and unverified history of prostate cancer, which is apparently negative according to Dr. Escobar. ALLERGIES: NONE NOTED. IMMUNIZATIONS: Last tetanus he believes he may have had one in the ED. He does take a take flu shot every year, has had COVID vaccine, but is not sure how many and does not recall pneumococcal vaccination. FAMILY HISTORY: Positive for diabetes in his father. SOCIAL HISTORY: He lives alone and is for three years. He used to smoke and quit years ago and works in the [employer]. PHYSICAL EXAMINATION: On exam, the patient has right foot that is wrapped. The left foot is open. There is a swab culture from March that appears to be the basis for some of the current treatment. It looks like the Gram stain was negative, but the culture grew variety of organisms including a potential contaminant or Gram negative staph. This raises concern that the culture itself may be contaminated. We usually do not get swab cultures because they are often misleading, but the wound care center does do them from time to time. I tried to discourage this, but that happens anyway. RECOMMENDATIONS: I will check on him remotely moving forward, but there is a little need for me to see him further. I cannot see him rapidly enough in clinic, so he will need to follow up with his outpatient primary. Please get a weekly CBC, renal panel and sed rate on treatment. If you want to cover older swab cx of wound that is grown on the culture previously, it is up to you, butyou will have to get permission to give him ertapenem and vancomycin and give the vancomycin with careful monitoring because of his renal insufficiency. DT: 10:34:13 TT: 11:09:00 Ref: [id number] - TID: [id number] MTDD
--- NOTE | 2024-04-19 15:25 | ESPR_ITS ---
<Statement entered by Ronnie Quinn MD - 04/19/24 16:41> Patient was seen and examined at the bedside. Patient reported that he had mild pain in the right and left foot. Patient is receiving PICC line today per ID specialist recommendation will continue IV antibiotics ceftriaxone and doxycycline for total 6 weeks. Labs showed improvement in the NITIN and hemoglobin was stable. Patient will be likely discharged tomorrow to home with home health. computer system validation specialist recommended to order arterial duplex with KEEGAN as a 1 to repeat in next 3 months for follow-up. Patient will be discharged with wound care as well as outpatient. All labs and orders were reviewed. Patient was reported to have weekly CBC, BMP, ESR until cultures of completion of antibiotic and removal of PICC line afterwards. I saw and examined the patient, and I agree with current management stated by Dr Jose Juan MD,PGY1. Plan of care was discussed with the attending physician and resident physician. Disclaimer: Despite multiple revisions, due to the dictation software being used, the document bellow may not be free of grammatical errors including phonetic/typographic errors. However, this does not deter from our commitment to providing health care in the patient's best interest in mind. Dr. Cheyenne MD, PGY 2 Documentation for date of: 04/19/24 Subjective Subjective Interval history: No overnight events. Patient seen and examined at bedside. Denies weakness, fevers, chills, or pain. Plan for PICC line placement this evening. Exam Vital Signs Temp Pulse Resp BP Pulse Ox O2 Del Method 97.5 F 69 18 163/86 H 98 Room Air 04/19/24 15:01 04/19/24 15:04/19/24 15:04/19/24 15:04/19/24 15:04/19/24 15:01 Narrative Exam General Appearance: Alert & Oriented X3, well-nourished male who is lying in bed in no acute distress HEENT: Skull symmetrical and atraumatic. Conjunctivae pink and moist. Pupils equal, round, reactive to light and accommodation (PERRL). External ear without lesion or discharge. Straight, nares patient, mucosa pink, no discharge. Cardio: Normal Rate and Rhythm with S1 and S2 heart sounds. No murmurs or extra heart sounds auscultated. No peripheral edema or cyanosis. Lungs: Symmetric with good expansion. Chest and back non-tender. Breath sounds vesicular without crackles, wheezing or rhonchi Abdomen: Non-tender, Non-distended, Normal Reactive Bowel Sounds Extremities: No edema. B/L feet wrapped with secure dressing due to discharge. Neuro: Alert, cooperative, oriented to person, place, and time. Speech clear. CN grossly intact. Upper motor strength 5/5 and Lower motor strength 5/5. Sensation intact. Objective Labs 04/19/24 10:47 04/19/24 10:47 Labs: Laboratory Results - last 24 hr 04/19/24 10:47 WBC 7.3 RBC 4.10 L Hgb 11.9 L Hct 36.5 L MCV 89 MCH 29.0 MCHC 32.6 RDW Std Deviation 44.0 H Plt Count 269 Neut % (Auto) 62 Lymph % (Auto) 26 Wallace % (Auto) 8 Eos % (Auto) 3 Baso % (Auto) 1 Neut # (Auto) 4.5 Lymph # (Auto) 1.9 Wallace # (Auto) 0.6 Eos # (Auto) 0.2 Baso # (Auto) 0.1 Immature Gran # (Auto) 0.03 H Absolute Nucleated RBC 0.00 Immature Gran % 0 Nucleated RBC % 0 PT 11.8 INR 1.1 APTT 28.7 Sodium 136 Potassium 4.0 Chloride 103 Carbon Dioxide 27.2 Anion Gap 6 L BUN 22 Creatinine 1.2 Estim Creat Clear Calc 53.4 L eGFR > 60 BUN/Creatinine Ratio 18 Glucose 161 H D Calculated Osmolality 278 Calcium 9.0 Corrected Calcium 9.0 Phosphorus 3.8 Magnesium 2.4 Total Bilirubin 0.3 AST 31 ALT 48 Alkaline Phosphatase 172 H D Total Protein 7.9 Albumin 4.4 Globulin 3.5 Albumin/Globulin Ratio 1.3 Hepatitis C Antibody Non Reactive Quality Measures Quality Measures none Advance care planning discussed with:: patient Assessment & Plan Assessment Current Active Medications: Generic Name Dose Route Start Last Admin Trade Name Freq PRN Reason Stop Dose Admin Acetaminophen 650 mg 04/16/24 21:25 Acetaminophen 325 Mg Tablet PO 05/16/24 21:24 Q6H PRN Fever >101.5 Acetaminophen 650 mg 04/16/24 21:25 Acetaminophen 325 Mg Tablet PO 05/16/24 21:24 Q6H PRN PAIN SCALE 1-3 (mild Atorvastatin Calcium 20 mg 04/17/24 21:00 04/18/24 20:31 Atorvastatin Calcium 20 Mg Tablet PO 05/17/24 20:59 20 mg HS YELITZA Administration Dextrose 25 ml 04/16/24 21:29 Dextrose 50%-Water Inj 50 Ml Syringe IV 05/16/24 21:28 Q15MIN PRN BG 50-70 responsive npo pt Dextrose 50 ml 04/16/24 21:29 Dextrose 50%-Water Inj 50 Ml Syringe IV 05/16/24 21:28 Q15MIN PRN BG <50 OR BG <70 & pt unresponsive Doxycycline Hyclate 100 mg 04/19/24 10:15 04/19/24 12:05 Doxycycline 100 Mg Tablet PO 04/26/24 10:14 100 mg BID YELITZA Administration Glucagon 1 mg 04/16/24 21:29 Glucagon Inj 1 Mg Vial IM Q15MIN PRN BG <70, and no IV access Heparin Sodium (Porcine) 5,000 unit 04/17/24 21:00 04/19/24 09:52 Heparin Sod Inj 5000 Unit/Ml Vial SC 05/01/24 20:59 5,000 unit Q12H YELITZA Administration Hydromorphone HCl 1 mg 04/16/24 21:25 Hydromorphone Inj 2 Mg/Ml Vial IVP 04/21/24 21:24 Q2H PRN Pain 7-10 Ceftriaxone Sodium 2 gm/ 50 mls @ 100 mls/hr 04/19/24 10:15 04/19/24 12:04 Sodium Chloride IV 04/26/24 10:14 100 mls/hr QDAY YELITZA Administration Insulin Glargine 25 unit 04/17/24 09:00 04/19/24 09:58 Insulin Glargine (Lantus) 5 Unit/0.05 Ml (Per 5 Units) SC 05/17/24 08:59 25 unit QDAY YELITZA Administration Insulin Human Lispro 0 unit 04/17/24 11:30 04/19/24 11:56 Insulin Lispro (Admelog) 1 Unit/0.01 Ml Unit SC 05/17/24 11:29 4 unit AC YELITZA Administration Protocol Labetalol HCl 10 mg 04/17/24 02:30 Labetalol Inj 5 Mg/Ml Vial 20 Ml IVP 05/17/24 02:29 Q2H PRN SBP more than 180 Ondansetron HCl 4 mg 04/16/24 21:25 Ondansetron Inj 2 Mg/Ml Inj 2 Ml IV 05/16/24 21:24 Q6H PRN NAUSEA OR VOMITING Protocol Oxycodone/Acetaminophen 1 tab 04/16/24 21:25 Oxycodone/Apap 5/325 Tablet PO 04/21/24 21:24 Q6H PRN PAIN SCALE 4-6 (Moderate Pantoprazole Sodium 40 mg 04/17/24 09:00 04/19/24 09:52 Pantoprazole 40 Mg Tablet PO 05/17/24 08:59 40 mg QDAY YELITZA Administration Plan Patient is a 61-year-old male with a past medical history of diabetes mellitus type 2 insulin-dependent (on 40 and 10 glargine), HLD, HTN, history of lumbar back surgery secondary to abscess, history of stroke (2019) w/ stents and pacemaker (2019) who was admitted for bilateral osteomyelitis. #Right foot osteomyelitis #Left foot osteomyelitis #Diabetic Ulcer #soft tissue infection Patient stated he is not sure when wound first started but has been present for several months, likely secondary to diabetic mellitus and diabetic ulcers. Possible PICC line, pending rec form Dr. Girssom. No surgical intervention per Dr. Bradford. Diagnostics: Bilateral foot x-ray showed osteomyelitis of the right foot fourth and fifth metatarsal and distal third metatarsal bones, it also showed left foot fourth metatarsal osteomyelitis. -Blood Culture Negative After 48 hours Plan ?Start the patient on vancomycin and Zosyn (04/16?) -Patient switched to Doxycycline 100mg PO BID and Rocephin 2g IV daily (04/19- 05/31) -PT and INR with morning labs in anticipation of PICC line tomorrow. -Wound care -Would Culture if paitnet taken to OR -Hepatitis C Antibody, placed by Infectious Disease. ?Pain management as per protocol -PICC line planed for this evening. -Consult general surgery, Dr. Bradford, appreciate recommendations -Arterial duplex ordered for wound care #Uncontrolled insulin-dependent diabetes mellitus Type 2 #Medicine illiteracy Patient has uncontrolled diabetes mellitus. Last A1c 12.5 in March. Total of 13 units of sliding Lispro given for , no change to Glargine given fasting glucose of 94. Plan -Follow with fasting blood glucose ? Insulin sliding scale ? Insulin glargine 25 international units daily ? Hypoglycemia protocol in place ? Carb consistent diet ? Diabetic education #History of hypertension Patient may be taking captoril 25 mg PO Qday, given blood pressure within normal reading and one soft blood pressure. Hold home medication. Revaluate tomorrow and restart as needed. Diagnostics: Urine Microalbumin 587, Creatinine 129, Ratio 455 Plan ?Labetalol 10 mg every 2 hours as needed IV if SBP more than 180 -Resume home catopril 25mg PO daily #Hyperlipedimia #hx Stroke #Elevated Transaminitis, resolved Past medical history of HLD on Simvastatin 20 mg HS. Given elevated Transaminitis currently holding Atorvastatin, but likely reactive. Diagnostic: previous lipid panel (12/25/2023): Triglycerides 101, cholesterol 147, HDL 31, LDL 96 ASCVD risk 26.7% risk of cardiovascular event Plan -Hepatitis C ordered -Atorvastatin 20 mg HS -Consider starting high statin for patient tomorrow Hospital Maintenance: FEN: Carb consistent diet DVT ppx: Heparin subcu GI ppx: Protonix IV lines: PIV Hodge: None Code status: Full code Dispo: MedSurg Plan of care discussed with senior resident Dr. Quinn PGY-[address] Hancock. Jadon Manzano MD PGY-1 Attending Provider Attestation/Addendum I attest that I was physically present for the evaluation, physical examination, lab and imaging review of the patient with the residents. I discussed the case with the residents and agree with the findings and plans of care as documented above. At bedside today, patient states he is feeling well and does not have new complaints. Blood cultures continue to be negative. Infectious disease following, recommended IV Rocephin and p.o. doxycycline on discharge with PICC line. Patient underwent PICC line placement with IR. Wound culture following, general surgery on board. Awaiting arterial duplex to rule out peripheral artery disease. Peter Hancock MD
[2024-04-19] MEDS: LIDOCAINE INJ PF 1% 30 ML VIAL 5 ML INFL (15:31)
[2024-04-19] MEDS: HEPARIN SOD LOCK SYR 100 UNIT/ML 500 UNIT STFIELD (15:31)
--- NOTE | 2024-04-19 16:00 | PC.NURSE ---
1544 patient is awake, alert, breathing unlabored, s/p picc line insertion to right upper arm, dressing dry with no bleeding, report given to Sara BAXTER, patient transferred to Ultrasund department to have bilateral lower extrmities US. Patient will be sent back to room 359 after US procedure.
[2024-04-19] MEDS: ATORVASTATIN CALCIUM 20 MG TABLET PO (20:26)
[2024-04-20] VITALS: BP 124/60; PULSE 72; RESP 18; TEMP 36.5; O2SAT 96
[2024-04-20 04:00] VITALS: BP 114/59; PULSE 71; RESP 18; TEMP 36.6; O2SAT 96
[2024-04-20 07:04] LABS: C-Reactive Protein 0.8 mg/dL (0.0-0.9)
[2024-04-20] MEDS: INSULIN LISPRO (AdmeLOG) 1 UNIT/0.01 ML UNIT SC ×2 (07:54→11:52)
[2024-04-20 08:00] VITALS: BP 149/83; PULSE 79; RESP 17; TEMP 36.3; O2SAT 98
[2024-04-20] MEDS: cefTRIAXone 2 GM in SODIUM CHLORIDE 0.9% (P) 50 ML IV (08:54)
[2024-04-20] MEDS: DOXYCYCLINE 100 MG TABLET PO (08:55)
[2024-04-20] MEDS: INSULIN GLARGINE (Lantus) 5 UNIT/0.05 ML (PER 5 UNITS) 25 UNIT SC (08:55)
[2024-04-20] MEDS: PANTOPRAZOLE 40 MG TABLET PO (08:55)
[2024-04-20] MEDS: HEPARIN SOD INJ 5000 UNIT/ML VIAL SC (08:55)
--- NOTE | 2024-04-20 09:05 | PC.CM ---
Addendum entered by Ysabel Wagner RN 04/21/24 08:38: I faxed discharge summary to [facility] and [facility]. Addendum entered by Ysabel Wagner RN 04/20/24 12:11: [facility] and [facility] are ready to see patient tomorrow. Patient had PICC line placed on 04/19. I updated the nurse and she was going to speak to the doctor. Original Note: I spoke to Dr. Quinn and she states patient should be discharge today. I reached out to [facility] and [facility] to see if they can open patient tomorrow.
[2024-04-20 09:35] VITALS: BP 149/83; PULSE 79
[2024-04-20] MEDS: Lisinopril 2.5 MG TABLET 5 MG PO (09:35)
[2024-04-20 12:00] VITALS: BP 133/70; PULSE 73; RESP 17; TEMP 36.2; O2SAT 98
--- NOTE | 2024-04-20 12:10 | PC.NURSE ---
spoke with the Transfer nurse about home health follow up for pt. since pt. is getting discharge per Transfer nurse home health barbraj[facility] will follow up with pt. starting tomorrow and he is ok to discharge from our side today.
--- NOTE | 2024-04-20 13:16 | PC.NURSE ---
pt. has discharge orders, spoke with the son of the pt. and per son he will be here to pick him up in 1 hour from now around 14:15
--- NOTE | 2024-04-20 14:19 | ESDS_ITS ---
<Statement entered by Peter Hancock MD - 04/20/24 17:39> I attest that I was physically present for the evaluation, physical examination, lab and imaging review of the patient with the residents. I discussed the case with the residents and agree with the findings and plans of care as documented above. At bedside today, patient states he is feeling well and does not have any new complaints. Denies any pain on his legs. Blood cultures continue to be negative. Received PICC line with IR yesterday. Arterial duplex shows suspicion for peripheral artery disease, but KEEGAN was 1 on the left side and, inconclusive on the right side. We will discharge patient on IV Rocephin and p.o. doxycycline as recommended by ID. Patient also recommended to follow-up with PCP and have further workup regarding her peripheral artery disease. Also recommended to have weekly CBC, renal panel and ESR. Peter Hancock MD <Statement entered by Ronnie Quinn MD - 04/20/24 15:57> I saw and examined the patient, and I agree with current management stated by Dr Benja MD,PGY1. Plan of care was discussed with the attending physician and resident physician. Disclaimer: Despite multiple revisions, due to the dictation software being used, the document bellow may not be free of grammatical errors including phonetic/typographic errors. However, this does not deter from our commitment to providing health care in the patient's best interest in mind. Dr. Cheyenne MD, PGY 2 Planned Discharge Date 04/20/24 DS: Providers Provider Date of admission: 04/16/24 20:48 Primary care physician: Physician No Primary/Family Admitting Provider: Mango Phillip MD Attending Provider on Admission: Peter Hancock MD Consults: 04/16/24 18:15 Consult to General Surgery Stat Comment: Consulting Provider: Celestina Bradford 04/16/24 23:32 Referral Registered Dietitian Routine Comment: Referral Wound Care Routine Comment: 04/17/24 01:40 Referral Registered Dietitian Routine Comment: 04/17/24 12:34 Consult to Infectious Diseases Routine Comment: Consulting Provider: Gallito Grissom Attending Provider on DC: Peter Hancock MD Discharging Provider: Peter Hancock MD DS: Diagnosis Problem List Completed Was Problem List Reviewed/Reconciled?: Yes Hospital Course Hospital Course Hospital course: Patient is a 61-year-old male with a past medical history of diabetes mellitus type 2 insulin-dependent (on 40 and 10 glargine), HLD, HTN, history of lumbar back surgery secondary to abscess, history of stroke (2019) w/ stents and pacemaker (2019) who was admitted for bilateral osteomyelitis and will continue antibiotics for 6 weeks outpatient. ER: At the ED patient was found to have normal vital signs, WBC of 9.4, hemoglobin 12.4, ESR of 52, BUN of 32, serum creatinine 1.3 which is his baseline, glucose of 225, CRP of 2.3, Pro-Williams within normal limits. Bilateral foot x-ray showed osteomyelitis of the right foot fourth and fifth metatarsal and distal third metatarsal bones, it also showed left foot fourth metatarsal osteomyelitis. Hospital Course: On hospital floors, Dr. Jarvis was consulted to follow-up with patient's bilateral osteomyelitis and no surgical intervention was recommended. Followed up with Dr Grissom, infectious disease who recommended 6-week course of antibiotics to be completed on May 31 2024 with oral doxycycline 100 mg twice daily and ceftriaxone 2 mg IV via PICC line. Patient was restarted on glargine 25 units and recommended to go home with [employer] A1c in the hospital 11.4 (04/17/2024). AAS CVD risk 26.7% for cardiovascular event, elevated transaminitis holding atorvastatin 20 mg at bedtime until patient follows up with outpatient primary care provider. Care Plan Goals: -Weekly CBC,RFTs, and ESR until antibiotics are completed til May 31, 2024 and removal of PICC line after that -Please continue Doxycycine 100 mg twice orally antibiotics for osteomyelitis until May 31, 2024 -Please continue Ceftriaxone 2 mg IV once a day antibiotics for osteomyelitis until May 31, 2024. -Please continue Metformin 500 mg twice a day for diabetes mellitus -Please continue Lantus 20 units once a day at night for diabetes mellitus -Continue home medication of Captopril 25 mg once a day. Please check your blood pressure at home, if systolic BP <100, please hold for that day and follow up with primary care provider -Please follow up with primary care provider within 1 week of discharge -Please follow up with primary care for Peripheral Artery Disease, Recommended CTA abdominal Aorta Iliofemoral runoff post intravenous contrast -Please follow up wound care. -If your symptoms worsen,please seek immediate medical attention and return to your nearest emergency room -If you do not have a primary care provider, [facility] [address] [place] [address] Disposition: Home Health #Right foot osteomyelitis #Left foot osteomyelitis #Diabetic Ulcer #soft tissue infection #Uncontrolled insulin-dependent diabetes mellitus Type 2 #Medicine illiteracy #History of hypertension #Hyperlipedimia #hx Stroke #Elevated Transaminitis, resolved - The patient's plan was discussed with attending Dr. Hancock and senior residents Dr. Cheyenne Yousif MD PGY1 Internal Medicine Time Spent with Patient Time attestation: Total time spent providing and/or coordinating discharge services: at least 35 minutes Home Health Home Health Referral Orders: 04/19/24 10:05 Home Health Referral Routine Reason For Exam: Osteomyelitis of foot Home-Bound The patient must either because of illness or injury, need the aid of supportive devices such as crutches, canes, wheelchairs, and walkers; the use of special transportation; or the assistance of another person in order to leave their place of residence; OR have a condition such that leaving his or her home is medically contraindicated. In addition, the patient also meets the following criteria: patient is normally unable to leave the home and leaving home requires considerable taxing effort. Addendum to Home Health Certification Practitioner's Certification: I certify that the patient has been under my care in the hospital and the care of attending physician (see below). We had a oyee-sd-[id number] encounter on (see date below). My clinical findings indicate that the patient is home bound per the above criteria and the Home Health Services noted in these orders are medically necessary. The primary reason for the edby-ua-oyhk encounter is related to the fact that the patient requires home health services. Date Certifying Pkos-xx-Xhip Physician Encounter: 04/16/24 Physician's Name who will Assume Oversight for HH Services: Miguelangel Elizabeth OVEN DRIER TENDER - Community Resources: No PT to Evaluate: No PT to evaluate and provide a treatmnet plan to increase patient's mobility and strength. Wound Care: Yes Home Health RN - Wound Care Order: Diabetic foot IV Therapy: Yes IV Medication: IV rocephin IV Dose: 2gm IV Frequency: Daily IV Stop Date: 05/31/24 Discontinue PICC Line Once Treatment Complete: No RN Safety Evaluation: Yes RN to evaluate and create a plan of care that will produce positive outcomes. Palliative Treatment: No Palliative treatment and evaluate the need for hospice. Home Health Aide - Personal Care: No Home Health Aide to assist with any ADL's. Exam Vital Signs Temp Pulse Resp BP Pulse Ox O2 Del Method 97.2 F 73 17 133/70 H 98 Room Air 04/20/24 12:00 04/20/24 12:00 04/20/24 12:00 04/20/24 12:04/20/24 12:04/20/24 12:00 Narrative Exam General Appearance: Alert & Oriented X3, well-nourished male who is lying in bed in no acute distress. Bilateral diabetic lesions with mild discharge HEENT: Skull symmetrical and atraumatic. Conjunctivae pink and moist. Pupils equal, round, reactive to light and accommodation (PERRL). External ear without lesion or discharge. Straight, nares patient, mucosa pink, no discharge. No thyroid nodule appreciated. No cervical lymphadenopathy. Cardio: Normal Rate and Rhythm with S1 and S2 heart sounds. No murmurs or extra heart sounds auscultated. No bruits on carotid auscultation. No peripheral edema or cyanosis. Lungs: Symmetric with good expansion. Chest and back non-tender. Breath sounds vesicular without crackles, wheezing or rhonchi Abdomen: Non-tender, Non-distended, Normal Reactive Bowel Sounds Neuro: Alert, cooperative, oriented to person, place, and time. Speech clear. CN grossly intact. Upper motor strength 5/5 and Lower motor strength 5/5. Sensation intact. Discharge Plan Plan Patient Disposition: Home w/HOME HEALTH Care Plan Goals: -Weekly CBC,RFTs, and ESR until antibiotics are completed til May 31, 2024 and removal of PICC line after that -Please continue Doxycycine 100 mg twice orally antibiotics for osteomyelitis until May 31, 2024 -Please continue Ceftriaxone 2 mg IV once a day antibiotics for osteomyelitis until May 31, 2024. -Please continue Metformin 500 mg twice a day for diabetes mellitus -Please continue Lantus 20 units once a day at night for diabetes mellitus -Continue home medication of Captopril 25 mg once a day. Please check your blood pressure at home, if systolic BP <100, please hold for that day and follow up with primary care provider -Please follow up with primary care provider within 1 week of discharge -Please follow up with primary care for Peripheral Artery Disease, Recommended CTA abdominal Aorta Iliofemoral runoff post intravenous contrast -Please follow up wound care. -If your symptoms worsen,please seek immediate medical attention and return to your nearest emergency room -If you do not have a primary care provider, you may follow up at the [facility] at [address] [place] [address] [address], [place] [address] Disposition: Home Health Prescriptions/Referrals Prescriptions/Med Rec: New (DME) FreeStyle Anh 3 Plus Sensor Device See Rx Instructions .Route Qty: 1 0RF Rx Instructions: As directed (DME) insulin syringe-needle U-100 [Ultra-Thin II Insulin Syringe] 1 mL 29 gauge x 1/2 syringe See Rx Instructions .Route Qty: 100 0RF Rx Instructions: As directed metformin 500 mg tablet 500 mg PO BID Qty: 30 0RF doxycycline hyclate 100 mg Tablet 100 mg PO BID 42 Days Qty: 84 0RF insulin glargine 100 unit/mL (3 mL) insulin pen 20 unit subcut QDAY Qty: 15 0RF Continued captopril 25 MG tablet 25 mg PO QDAY Qty: 0 Discontinued Glyburide/Metformin * (GLUCOVANCE 5/500 *) 1 TAB tablet 1 tab PO TIDWM Qty: 0 ciprofloxacin HCl [Cipro] 500 mg tablet 500 mg PO BID Qty: 14 0RF sulfamethoxazole-trimethoprim [Bactrim DS] 800-160 mg tablet 1 tab PO BID Qty: 20 0RF Referrals: No Primary/Family,Physician [Primary Care Provider] - Patient/Caregiver Discharge Instructions Other Discharge Activity Instructions:: 1) Follow up at [facility] as scheudled. Please call [phone] to rescheudle as needed. 2) Follow up at [facility] with Dr. Parsons, please call [phone] to schedule appointment. 3) Wound care to left foot: swab ulcers with betadine daily. Wear Darco shoe while ambulating. Right foot: cleanse with wound cleanser spray. Saturating with betadine and wrap with dry gauze once a day. Wear Darco shoe while walking. Education Materials: CGM, Nutrition for Wound Healing, Diabetes and Heart Disease, Diabetes and Kidney Disease, Changing Dressing Dc, Blood Sugar Monitoring and ..., Can You Control Diabetes ..., Diabetes and High Blood Pressure Print Language: Angolan Stand Alone Forms: Jeanette Award Info., Patient Portal Info Letter Discharge Order Discharge Orders: Discharge (Routine); Ordered 04/20/24 Ordered By: Ronnie Quinn Quality Discharge Quality Measures VTE prophylaxis
--- NOTE | 2024-04-20 15:05 | PC.NURSE ---
pt has picc line and sent home with picc line with instruction for the date need to be on until 05/31/24
== END 2024-04-20 14:52 | disposition home health service (06) | DRG 638 ==
LOC: SERX 14:12 → SERHOLD 21:16 → S3NX 22:51
PROVIDERS: Internal Medicine Infectious Disease; Nurse Practitioner Family; Student in an Organized Health Care Education/Training Program; Admitting Provider Student in an Organized Health Care Education/Training Program; Emergency Provider Emergency Medicine; Visit Provider Student in an Organized Health Care Education/Training Program
DX: E11.69 Type 2 diabetes mellitus with other specified complication (principal); M86.8X7 Other osteomyelitis, ankle and foot; L97.519 Non-pressure chronic ulcer of other part of right foot with unspecified severity; L97.529 Non-pressure chronic ulcer of other part of left foot with unspecified severity; E11.621 Type 2 diabetes mellitus with foot ulcer; E11.65 Type 2 diabetes mellitus with hyperglycemia; E11.22 Type 2 diabetes mellitus with diabetic chronic kidney disease; I12.9 Hypertensive chronic kidney disease with stage 1 through stage 4 chronic kidney disease, or unspecified chronic kidney disease; E78.5 Hyperlipidemia, unspecified; N17.9 Acute kidney failure, unspecified; N18.9 Chronic kidney disease, unspecified; Z86.73 Personal history of transient ischemic attack (TIA), and cerebral infarction without residual deficits; Z89.422 Acquired absence of other left toe(s); Z55.6 Problems related to health literacy; Z95.0 Presence of cardiac pacemaker; Z87.891 Personal history of nicotine dependence; Z79.84 Long term (current) use of oral hypoglycemic drugs; Z79.4 Long term (current) use of insulin; Z79.899 Other long term (current) drug therapy
CPT/HCPCS: 36415; 73630; 80053; 80202; 82043; 82570; 83036; 83605; 83735; 84100; 84145; 84439; 84443; 85025; 85610; 85652; 85730; 86140; 86803; 87040; 87081; 93925; 96365; 96366; 96367; 96372; 99285; C1751; C1894; J0696; J1642; J1643; J1815; J2543; J3370; J3371; J3372; J3490; J7050; A9270

== ENCOUNTER → 2024-04-23 | Outpatient (CLI) | payer MEDICAID, SELFPAY | END | disposition home or self-care (01) | LOC: SWHD 11:16 | PROVIDERS: PCP Nurse Anesthetist, Certified Registered; Referring Provider Nurse Anesthetist, Certified Registered; Visit Provider Surgery | DX: L97.412 Non-pressure chronic ulcer of right heel and midfoot with fat layer exposed (principal); L97.411 Non-pressure chronic ulcer of right heel and midfoot limited to breakdown of skin; L97.522 Non-pressure chronic ulcer of other part of left foot with fat layer exposed; S91.302A Unspecified open wound, left foot, initial encounter; X58.XXXA Exposure to other specified factors, initial encounter; E11.40 Type 2 diabetes mellitus with diabetic neuropathy, unspecified; I25.10 Atherosclerotic heart disease of native coronary artery without angina pectoris; I10 Essential (primary) hypertension; Z79.4 Long term (current) use of insulin; Z91.199 Patient's noncompliance with other medical treatment and regimen due to unspecified reason | CPT/HCPCS: 11042; A9270 ==

== ENCOUNTER → 2024-04-30 | Outpatient (CLI) | payer OTHER, SELFPAY | END | disposition home or self-care (01) | PROVIDERS: PCP Nurse Anesthetist, Certified Registered; Referring Provider Nurse Anesthetist, Certified Registered; Visit Provider Student in an Organized Health Care Education/Training Program | DX: L97.412 Non-pressure chronic ulcer of right heel and midfoot with fat layer exposed (principal); L97.411 Non-pressure chronic ulcer of right heel and midfoot limited to breakdown of skin; L97.522 Non-pressure chronic ulcer of other part of left foot with fat layer exposed; S91.302A Unspecified open wound, left foot, initial encounter; X58.XXXA Exposure to other specified factors, initial encounter; E11.40 Type 2 diabetes mellitus with diabetic neuropathy, unspecified; I25.10 Atherosclerotic heart disease of native coronary artery without angina pectoris; I10 Essential (primary) hypertension; Z79.4 Long term (current) use of insulin; Z91.199 Patient's noncompliance with other medical treatment and regimen due to unspecified reason | CPT/HCPCS: 99214; A9270; G0463 ==

== ENCOUNTER → 2024-05-07 | Outpatient (CLI) | payer OTHER, SELFPAY | END | disposition home or self-care (01) | LOC: SWHD 14:16 | PROVIDERS: PCP Nurse Anesthetist, Certified Registered; Referring Provider Nurse Anesthetist, Certified Registered; Visit Provider Surgery | DX: E11.621 Type 2 diabetes mellitus with foot ulcer (principal); L97.412 Non-pressure chronic ulcer of right heel and midfoot with fat layer exposed; L97.521 Non-pressure chronic ulcer of other part of left foot limited to breakdown of skin; S91.302A Unspecified open wound, left foot, initial encounter; X58.XXXA Exposure to other specified factors, initial encounter; E11.40 Type 2 diabetes mellitus with diabetic neuropathy, unspecified; I25.10 Atherosclerotic heart disease of native coronary artery without angina pectoris; I10 Essential (primary) hypertension; Z79.4 Long term (current) use of insulin; Z91.199 Patient's noncompliance with other medical treatment and regimen due to unspecified reason | CPT/HCPCS: 97597; 11042; A9270 ==

== ENCOUNTER → 2024-05-14 | Outpatient (CLI) | payer OTHER, SELFPAY | END | disposition home or self-care (01) | LOC: SWHD 14:34 | PROVIDERS: PCP Nurse Anesthetist, Certified Registered; Referring Provider Nurse Anesthetist, Certified Registered; Visit Provider Surgery | DX: E11.621 Type 2 diabetes mellitus with foot ulcer (principal); L97.412 Non-pressure chronic ulcer of right heel and midfoot with fat layer exposed; L97.521 Non-pressure chronic ulcer of other part of left foot limited to breakdown of skin; S91.302A Unspecified open wound, left foot, initial encounter; X58.XXXA Exposure to other specified factors, initial encounter; E11.40 Type 2 diabetes mellitus with diabetic neuropathy, unspecified; I25.10 Atherosclerotic heart disease of native coronary artery without angina pectoris; Z79.4 Long term (current) use of insulin; Z91.199 Patient's noncompliance with other medical treatment and regimen due to unspecified reason | CPT/HCPCS: 11042; 97597; A9270 ==

== ENCOUNTER → 2024-05-27 | Outpatient (CLI) | payer MEDICARE, SELFPAY | END | disposition home or self-care (01) | PROVIDERS: PCP Nurse Anesthetist, Certified Registered; Referring Provider Nurse Anesthetist, Certified Registered; Visit Provider Student in an Organized Health Care Education/Training Program | DX: E11.621 Type 2 diabetes mellitus with foot ulcer (principal); L97.412 Non-pressure chronic ulcer of right heel and midfoot with fat layer exposed; L97.521 Non-pressure chronic ulcer of other part of left foot limited to breakdown of skin; S91.302A Unspecified open wound, left foot, initial encounter; X58.XXXA Exposure to other specified factors, initial encounter; E11.40 Type 2 diabetes mellitus with diabetic neuropathy, unspecified; I25.10 Atherosclerotic heart disease of native coronary artery without angina pectoris; Z79.4 Long term (current) use of insulin; Z91.199 Patient's noncompliance with other medical treatment and regimen due to unspecified reason; I10 Essential (primary) hypertension | CPT/HCPCS: 99214; A9270; G0463 ==

== ENCOUNTER → 2024-07-15 | Outpatient (CLI) | payer OTHER, SELFPAY | END | disposition home or self-care (01) | LOC: SWHD 08:04 | PROVIDERS: Visit Provider Student in an Organized Health Care Education/Training Program | DX: L97.422 Non-pressure chronic ulcer of left heel and midfoot with fat layer exposed (principal); L97.522 Non-pressure chronic ulcer of other part of left foot with fat layer exposed; S91.302A Unspecified open wound, left foot, initial encounter; X58.XXXA Exposure to other specified factors, initial encounter; E11.40 Type 2 diabetes mellitus with diabetic neuropathy, unspecified; I25.10 Atherosclerotic heart disease of native coronary artery without angina pectoris; Z79.4 Long term (current) use of insulin; Z91.199 Patient's noncompliance with other medical treatment and regimen due to unspecified reason; I10 Essential (primary) hypertension | CPT/HCPCS: 97597; 99212; A9270; G0463 ==

== ENCOUNTER → 2024-07-21 | Outpatient (CLI) | payer OTHER, SELFPAY | END | disposition home or self-care (01) | LOC: SWHD 11:15 | PROVIDERS: PCP Nurse Anesthetist, Certified Registered; Referring Provider Nurse Anesthetist, Certified Registered; Visit Provider Student in an Organized Health Care Education/Training Program | DX: L97.522 Non-pressure chronic ulcer of other part of left foot with fat layer exposed (principal); L97.422 Non-pressure chronic ulcer of left heel and midfoot with fat layer exposed; S91.302A Unspecified open wound, left foot, initial encounter; X58.XXXA Exposure to other specified factors, initial encounter; E11.40 Type 2 diabetes mellitus with diabetic neuropathy, unspecified; I25.10 Atherosclerotic heart disease of native coronary artery without angina pectoris; Z79.4 Long term (current) use of insulin; Z91.199 Patient's noncompliance with other medical treatment and regimen due to unspecified reason; I10 Essential (primary) hypertension | CPT/HCPCS: 99213; A9270; G0463 ==

== ENCOUNTER → 2024-08-25 | Outpatient (CLI) | payer OTHER, SELFPAY | END | disposition home or self-care (01) | LOC: SWHD 10:09 | PROVIDERS: PCP Nurse Anesthetist, Certified Registered; Referring Provider Nurse Anesthetist, Certified Registered; Visit Provider Student in an Organized Health Care Education/Training Program | DX: L97.422 Non-pressure chronic ulcer of left heel and midfoot with fat layer exposed (principal); S91.302A Unspecified open wound, left foot, initial encounter; X58.XXXA Exposure to other specified factors, initial encounter; E11.40 Type 2 diabetes mellitus with diabetic neuropathy, unspecified; I25.10 Atherosclerotic heart disease of native coronary artery without angina pectoris; Z91.199 Patient's noncompliance with other medical treatment and regimen due to unspecified reason; I10 Essential (primary) hypertension | CPT/HCPCS: 97597; A9270 ==

== ENCOUNTER → 2024-09-01 | Outpatient (CLI) | payer OTHER, SELFPAY | END | disposition home or self-care (01) | LOC: SWHD 09:50 | PROVIDERS: PCP Nurse Anesthetist, Certified Registered; Referring Provider Nurse Anesthetist, Certified Registered; Visit Provider Student in an Organized Health Care Education/Training Program | DX: L97.412 Non-pressure chronic ulcer of right heel and midfoot with fat layer exposed (principal); L97.522 Non-pressure chronic ulcer of other part of left foot with fat layer exposed; S91.302A Unspecified open wound, left foot, initial encounter; X58.XXXA Exposure to other specified factors, initial encounter; E11.40 Type 2 diabetes mellitus with diabetic neuropathy, unspecified; I25.10 Atherosclerotic heart disease of native coronary artery without angina pectoris; Z91.199 Patient's noncompliance with other medical treatment and regimen due to unspecified reason; I10 Essential (primary) hypertension | CPT/HCPCS: 97597; A9270 ==

== ENCOUNTER → 2024-09-20 | Outpatient (CLI) | payer OTHER, SELFPAY | END | disposition home or self-care (01) | LOC: SWHD 13:48 | PROVIDERS: PCP Nurse Anesthetist, Certified Registered; Referring Provider Nurse Anesthetist, Certified Registered; Visit Provider Student in an Organized Health Care Education/Training Program | DX: L97.412 Non-pressure chronic ulcer of right heel and midfoot with fat layer exposed (principal); L97.522 Non-pressure chronic ulcer of other part of left foot with fat layer exposed; S91.302A Unspecified open wound, left foot, initial encounter; X58.XXXA Exposure to other specified factors, initial encounter; E11.40 Type 2 diabetes mellitus with diabetic neuropathy, unspecified; I25.10 Atherosclerotic heart disease of native coronary artery without angina pectoris; Z91.199 Patient's noncompliance with other medical treatment and regimen due to unspecified reason; I10 Essential (primary) hypertension | CPT/HCPCS: 97597; A9270 ==

== ENCOUNTER → 2024-10-04 | Outpatient (CLI) | payer OTHER, SELFPAY | END | disposition home or self-care (01) | LOC: SWHD 12:42 | PROVIDERS: PCP Nurse Anesthetist, Certified Registered; Referring Provider Nurse Anesthetist, Certified Registered; Visit Provider Student in an Organized Health Care Education/Training Program | DX: L97.412 Non-pressure chronic ulcer of right heel and midfoot with fat layer exposed (principal); L97.522 Non-pressure chronic ulcer of other part of left foot with fat layer exposed; S91.302A Unspecified open wound, left foot, initial encounter; X58.XXXA Exposure to other specified factors, initial encounter; E11.40 Type 2 diabetes mellitus with diabetic neuropathy, unspecified; I25.10 Atherosclerotic heart disease of native coronary artery without angina pectoris; Z91.199 Patient's noncompliance with other medical treatment and regimen due to unspecified reason; I10 Essential (primary) hypertension | CPT/HCPCS: 11042; A9270 ==

== ENCOUNTER 2024-11-10 16:16 | Inpatient (IN) | payer MEDICARE, MEDICAID, SELFPAY ==
[2024-11-10] VITALS (9 sets, daily range): BP systolic 140–178; BP diastolic 74–92; PULSE 74–89; RESP 16–97; TEMP 36.4–37.1; O2SAT 95–99; BMI 29.2
--- NOTE | 2024-11-10 16:25 | XR_ITS ---
Examination: CTA carotids with intravenous contrast CTA brain, head with intravenous contrast. 2-D sagittal, coronal reconstructions. 3-D reconstructions. Exam date and time: November 10, 2024, 1650 hours INDICATIONS: Stroke alert, onset left-sided body numbness beginning 2 days ago CTDI: vol (mGy) 30.3 DLP: (mGycm) 476 Technique: Multiple CTA axial brain, head carotid images post intravenous contrast injection 75 cc, Isovue-[id number]. 2-D sagittal, coronal reconstructions. 3-D reconstructions, 3-D post processing including vascular maximum intensity projection images. Low dose protocols were performed. One or more of the following dose reduction techniques were used; automated exposure control, adjustment of the mA and/or KV according to patient size, use of iterative reconstruction technique. Findings: Heavy calcification right carotid bifurcation, 30% stenosis right carotid bifurcation and origin right internal carotid artery Left common carotid artery and carotid bifurcation and internal carotid artery demonstrate no significant stenoses Dominate right vertebral artery with no critical stenoses Basilar artery posterior cerebral branches, juxtasellar internal carotid arteries, M1 segments middle cerebral arteries middle cerebral artery trifurcation vessels anterior cerebral vessels fill with no large vessel occlusions IMPRESSION: No significant neck arterial stenoses No cerebral large vessel arterial occlusions or thrombus
--- NOTE | 2024-11-10 16:25 | EKG_ITS ---
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
--- NOTE | 2024-11-10 16:25 | XR_ITS ---
Examination: CT brain head without contrast. 2-D sagittal coronal reconstructions Date and time of exam:November 10, 2024 at 1634 hours Comparison June 10, 2019 INDICATIONS: Stroke alert, onset focal neurologic deficit left-sided body numbness and weakness beginning 2 days ago CTDI: vol (mGy):52.4 DLP: (mGycm):1107 Technique: Multiple CT axial sections of the brain have been obtained, 5 mm slice thickness. Contrast has not been administered. 2-D sagittal, coronal reconstructions have been obtained Low dose protocols were performed. One or more of the following dose reduction techniques were used; automated exposure control, adjustment of the mA and/or KV according to patient size, use of iterative reconstruction technique. Findings: Interval subacute appearing subdural hematoma peripheral to the right frontal temporal parietal lobe, maximum thickness axial image 16 is approximately 10 mm There are tiny hyperdense areas within this subdural indicating probably low-level acute bleeding into this more subacute subdural hematoma There is mild mass effect upon the right lateral ventricle, axial image 19 through axial image 21, the frontal horns appear shifted to the left approximately 3 mm Acute intracranial hemorrhage is not depicted The ventricles are nonenlarged Old infarct right cerebellar hemisphere IMPRESSION: Subdural hematoma peripheral to the right frontotemporal parietal lobe measuring up to 10 mm in thickness with mass effect as above There are tiny hyperdense areas within this subdural indicating probable low-level acute bleeding into this more subacute subdural hematoma
--- NOTE | 2024-11-10 16:25 | XR_ITS ---
Examination: AP chest single view Technique one AP portable upright chest single view Date and time on November 10, 2024 1652 hours Comparison June 10, 2019 INDICATIONS: Stroke alert today FINDINGS: Normal heart size. No aspiration pneumonia. The osseous structures are intact IMPRESSION: No aspiration pneumonia.
--- NOTE | 2024-11-10 16:26 | EDNOTE_ITS ---
ED Weakness RME/HPI General Chief complaint: Weakness Stated complaint: left sided facial numbness and weakness since yest Time Seen by Provider: 11/10/24 16:24 Arrival date/time: 11/10/24 16:16 RME / HPI RME / HPI Narrative: 69-year-old male patient with significant history of hypertension diabetes mellitus, came in for evaluation regarding strokelike symptoms. Last well-known time 1 hour ago, sudden onset of confusion, and weakness to the left side of the body. Patient had difficulty ambulating due to weakness to the left side of the body. Patient denies any headache denies any dizziness. On my initial evaluation patient is more alert than earlier. Patient is not taking any blood thinner. Patient sustained fall from a chair landing on his back of the head 3 weeks ago did not went to the emergency room during the time. Related Data Home Medications ?Medication ?Instructions ?Recorded ?Confirmed captopril 25 mg tablet 25 mg PO QDAY #0 tabs 12/11/20 Previous Rx's ?Medication ?Instructions ?Recorded blood-glucose sensor (FreeStyle #1 ea 04/19/24 Anh 3 Plus Sensor device) insulin glargine 100 unit/mL (3 20 unit (0.2 mL) subcu t QDAY #15 mL 04/19/24 mL) subcutaneous pen insulin syringe-needle U-100 1 mL #100 ea 04/19/24 29 gauge x 1/2 (Ultra-Thin II Insulin Syringe) metformin 500 mg tablet 500 mg PO BID #30 tabs 04/19 Allergies Allergy/AdvReac Type Severity Reaction Status Date / Time No Known Allergies Allergy Verified 11/10/24 16:19 Review of Systems Review of Systems Narrative Review of Systems: Review of system reviewed and within normal limits except mentioned in HPI ED Exam Narrative Physical exam: VITAL SIGNS: Reviewed. GENERAL APPEARANCE: Alert and interactive, follows commands, no acute distress, HEAD AND FACE: Non-traumatic. Loss of nasolabial folds on the left ENT: PERRL, pink conjunctivitis, eyelid no trauma, Mucous membrane moist. NECK: Supple, nontender, no nuchal rigidity. CHEST: No tenderness, no crepitus, no paradoxical movement, no retractions. LUNGS: Clear, well ventilated, symmetric, no rales, no wheezing, no ronchi, no stridor, good breath sounds bilaterally. HEART: Regular rate, regular rhythm, no murmur, no gallops. ABDOMEN: Soft, positive bowel sounds, nondistended, no guarding, nontender, no rebound, no masses, RECTAL: Deferred. GENITAL: Deferred. NEUROLOGICAL: Gross motor function intact sensory function intact, Appropriate for age. MUSCULOSKELETAL: low back nontender, full range of motion. EXTREMITIES: Left foot on dressing none foul-smelling, full range of motion. SKIN: Color pink, dry, no rash, no lacerations, no abrasions, no contusions. LYMPHATICS: Deferred. Course Quality Measures none Orders Category Date Time Status Bedside Blood Glucose NOW Care 11/10/24 16:25 Active COVID-19 Screening Questionnaire NOW Care 11/10/24 22:49 Active Packaging Assembler NOW Care 11/10/24 16:25 Active Continuous Pulse Oximetry NOW Care 11/10/24 16:25 Completed Decision to Admit X1 Care 11/10/24 22:48 Active EKG (ED ONLY) *Do not use* NOW Care 11/10/24 16:25 Completed In and Out Catheter NEEDED Care 11/10/24 16:25 Active Insert IV NOW Care 11/10/24 16:25 Active NIH Stroke Scale now Care 11/10/24 16:25 Active NPO NOW Care 11/10/24 16:25 Active Nurse Swallow Screen x1 Care 11/10/24 16:25 Active Consult to Neurology / Tele-Neurology Routine Cons 11/10/24 16:25 Active Referral - Director Of Residential Services Stat Cons 11/10/24 16:[address] angio stroke protocol Stat Exams 11/10/24 16:[address] stroke protocol Stat Exams 11/10/24 16:25 Completed EKG (ED Only) Stat Exams 11/10/24 16:25 Draft XR chest 1V portable Stat Exams 11/10/24 16:25 Completed CBC Stat Lab 11/10/24 16:36 Completed Comprehensive Metabolic Panel Stat Lab 11/10/24 16:36 Completed Drug Screen,Urine Stat Lab 11/10/24 22:01 Completed Magnesium Stat Lab 11/10/24 16:36 Completed Partial Thromboplastin Time Stat Lab 11/10/24 16:36 Completed Prothrombin Time with INR Stat Lab 11/10/24 16:36 Completed Troponin I Stat Lab 11/10/24 16:36 Completed Urinalysis Stat Lab 11/10/24 22:01 Completed Urine Culture Stat Lab 11/10/24 22:01 Received Insulin Regular Med 11/10/24 17:57 Discontinued 7.7 unit IV X1 ONE Labetalol IV [Trandate IV] Med 11/10/24 16:25 Active 10 mg IVP Q15M PRN Ondansetron Inj [Zofran Inj] Med 11/10/24 16:25 Active 4 mg IVP Q4HR PRN levETIRAcetam INJ [Keppra Inj] Med 11/10/24 16:48 Discontinued 1,000 mg IVP X1 ONE Oxygen Delivery NOW RT 11/10/24 16:25 Active Vital Signs Vital signs: Vital Signs Temperature 98.7 F 11/10/24 16:25 Pulse Rate 79 11/10/24 16:25 Respiratory Rate 19 11/10/24 16:25 Blood Pressure 155/74 H 11/10/24 16:25 Pulse Oximetry (%) 97 11/10/24 16:25 Oxygen Delivery Method Room Air 11/10/24 16:25 Weakness MDM Narrative MDM Narrative:: 69-year-old male patient with significant history of hypertension diabetes mellitus, came in for evaluation regarding strokelike symptoms. Last well-known time 1 hour ago, sudden onset of confusion, and weakness to the left side of the body. Patient had difficulty ambulating due to weakness to the left side of the body. Patient denies any headache denies any dizziness. On my initial evaluation patient is more alert than earlier. Patient is not taking any blood thinner. Patient sustained fall from a chair landing on his back of the head 3 weeks ago did not went to the emergency room during the time. Patient also was noted to have chronic foot ulcer's been ongoing for the last 3 months currently seen by hospital cleaning specialist, they are changing the dressing every 3 days. Stroke alert was initiated right away. CT scan of the head showed Subdural hematoma peripheral to the right frontotemporal parietal lobe measuring up to 10 mm in thickness with mass effect as above There are tiny hyperdense areas within this subdural indicating probable low-level acute bleeding into this more subacute subdural hematoma Spoke with teleneurologist, who recommend transfer for subdural hematoma with mass effect. Started the patient on Keppra 1 g IV., EEG in the morning, and MRI in the morning to rule out seizure versus stroke I spoke with neurosurgeon from [facility], who recommends consult with neurosurgeon from higher centers.. Dr. Mauricio from [facility] recommends nonsurgical for subacute subdural hematoma. Follow-up in his clinic in 1 month. Spoke with hospitalist, who admitted the patient. Clinically patient is back to baseline. Latest blood pressure was noted to be 149/81 heart rate of 79. Patient data External records reviewed:: None Clinical information provided by:: patient and family Social determinants that could affect healthcare access:: none Patient has the following chronic illnesses:: Hypertension diabetes mellitus, chronic foot ulcer How is presenting disease/condition affected by chronic disease/condition?: u neffected by Evaluation data The following diagnostics were reviewed and interpreted by me:: lab results, radiology exam(s) and EKG tracing(s) Lab and/or radiology exams considered but not ordered:: And Interpretation Summary: See results MDM EKG showed sinus rhythm, ventricular rate of 78 bpm, KY interval 193 MS, No ST segment elevation depression noted. Medications / Prescriptions Medications or Prescriptions considered but not ordered:: None Medication administrations:: Medication Administration History Labetalol HCl (Labetalol Inj 5 Mg/Ml Vial 20 Ml) 10 mg IVP Q15M PRN PRN Reason: HYPER Last Admin: 11/10/24 17:29 Dose: 10 mg Documented By: BEAU Comments: PER CASH APPLICATION REPRESENTATIVE KOREY, GIVE TO MAINTAIN BP UNDER 150s systolic Ondansetron HCl (Ondansetron Inj 2 Mg/Ml Inj 2 Ml) 4 mg IVP Q4HR PRN PRN Reason: NAUSEA OR VOMITING Stop: 12/10/24 16:24 Discontinued Medications Insulin Human Regular (Insulin Hum Regular 1 Unit/0.01 Ml (Per Unit)) 7.7 unit 0.1 unit/kg (7.7 unit) IV X1 ONE Stop: 11/10/24 17:58 Last Admin: 11/10/24 18:44 Dose: 7.7 unit Documented By: WESTON Co-signed By: THOMAS Levetiracetam (Levetiracetam Inj 100 Mg/Ml Vial 5ml) 1,000 mg IVP X1 ONE Stop: 11/10/24 16:49 Last Admin: 11/10/24 17:17 Dose: 1,000 mg Documented By: BEAU Herzog, insulin IV, and labetalol IV Consultations Consultation(s) initiated? (list below): Yes Consultation #1 (Physician, Specialty, Details): Spoke with 2 neurosurgeon from [facility] and transfer center/neurosurgeon [facility] who recommends nonsurgical for subacute subdural h ematoma. Diagnosis Weakness Differential Diagnosis: anemia and dehydration Most likely diagnosis given after review of the tests above:: Seizure, strokelike symptoms, subdural hematoma, fall Admission Indicated Admission indicated?: indicated Explain why admission is indicated or not indicated:: Patient is to be admitted for further management. Admission Request Was there a request for admission?: Yes Admission Attestation Admission request attestation: Discussed case with [Dr Stauffer ] from Hospitalist service regarding admission. Discussed patients ED course, exam findings, labs, and radiology results. The Hospitalist [agrees to accept the patient for admission. Disposition Plan Disposition Plan: Admit Discharge Plan Plan Patient Disposition: Admit Acute Care w/in Hospital Discharge Disposition comment: Stable Prescriptions/Referrals Prescriptions/Med Rec: No Action captopril 25 MG tablet 25 mg PO QDAY Qty: 0 (DME) FreeStyle Anh 3 Plus Sensor Device See Rx Instructions .Route Qty: 1 0RF Rx Instructions: As directed (DME) insulin syringe-needle U-100 [Ultra-Thin II Insulin Syringe] 1 mL 29 gauge x 1/2 syringe See Rx Instructions .Route Qty: 100 0RF Rx Instructions: As directed metformin 500 mg tablet 500 mg PO BID Qty: 30 0RF insulin glargine 100 unit/mL (3 mL) insulin pen 20 unit subcut QDAY Qty: 15 0RF Referrals: No Primary/Family,Physician [Primary Care Provider] - In 1 week Problem List Clinical Impression: Stroke-like symptom, Subdural hematoma Patient/Caregiver Discharge Instructions Print Language: Kazakh Stand Alone Forms: Jeanette Award Info., Patient Portal Info Letter
[2024-11-10 16:54] LABS: Basophils # (Auto) 0.0 Thou/mm3 (0.0-0.2); Basophils % (Auto) 0 % (0-2.5); Eosinophils # (Auto) 0.2 Thou/mm3 (0.0-0.5); Eosinophils % (Auto) 2 % (0-10); Hematocrit 33.7 % (41.0-53.0); Hemoglobin 11.3 g/dL (13.5-16.0); Immature Granulocytes Auto 0.04 Thou/mm3 (0.00-0.00); Lymphocytes # (Auto) 2.0 Thou/mm3 (1.0-4.8); Lymphocytes % (Auto) 21 % (10-50); Mean Corpuscular HGB Conc 33.5 g/dl (31.0-37.0); Mean Corpuscular Hemoglobin 29.3 pg (25.0-35.0); Mean Corpuscular Volume 87 fL (80-100); Monocytes # (Auto) 0.8 Thou/mm3 (0.0-0.8); Monocytes % (Auto) 8 % (0-12); Neutrophils # (Auto) 6.1 Thou/mm3 (1.8-7.7); Neutrophils % (Auto) 67 % (37-80); Nucleated Red Blood Cell # 0.00 Thou/mm3 (0.00-0.00); Nucleated Red Blood Cell % 0 /100 WBC (0); Platelet Count 252 Thou/mm3 (140-440); RDW Standard Deviation 41.1 fL (35.1-43.9); Red Blood Count 3.86 Miln/mm3 (4.50-5.90); White Blood Count 9.1 Thou/mm3 (3.8-10.6)
--- NOTE | 2024-11-10 16:59 | ESCONSULT_ITS ---
Tele Neuro Consultation Consultation Date 11/10/24 Most Recent Vital Signs Last Vital Signs Temp 98.7 F 11/10/24 16:25 Pulse 79 11/10/24 16:25 Resp 19 11/10/24 16:25 BP 155/74 H 11/10/24 16:25 Pulse Ox 97 11/10/24 16:25 O2 Del Method Room Air 11/10/24 16:25 Consultation Narrative [facility] Tele[facility]urology Consult [facility] Patient Name:???Heather Weeks Date of :???03/06/1954 Identification Number:??? Date of Service:???11/10/2024 16:26:27 Diagnosis:?R53.1 - Weakness Impression: 70y/o man w/ vascular risk factors presenting for evaluation of persistent Lt sided weakness and numbness w/ confusion noted since 1699 yesterday, symptoms seem intermittent per patient's and son's report, when evaluated by me NIHSS:1 w/ mild anomia and difficulty explaining the stroke picture, inattentive, head CT w/ subacute to chronic Rt hemisphere SDH, suspect is traumatic as patient reports head trauma after a fall approx 1 month ago, symptoms suspicious for seizures secondary to this, CTA head and neck pending for further evaluation of another etiologies for SDH. Recommend keppra 1gm IV BID, first dose now, BP<150/90, Neurosurgery consult STAT for recommendations, EEG ANAND, MRI brain w/ and w/o jarrod for work up. Recommendation: Diagnostic Studies: ?Repeat CT head in first 8-12hrs ?CTA head and neck with contrast pending Laboratory Studies:? INR/PT ? aPTT? CBC Medications:? Hold antiplatelet therapy/NSAIDS/Anticoagulation Nursing Recommendations: ? Telemetry, IV FluidsAvoid dextrose containing fluids, Maintain euglycemia ? Head of bed 30 degrees ? Neuro checks q1hrs during ICU stay ? keep BP less than 150/90's with goal of 140/80s Consultations: ? Need Neurosurgery consultation STAT DVT Prophylaxis: ? SCDs Disposition: ? Neurology will Follow Metrics: Last Known Well: 11/09/2024 17:00:00 Dispatch Time: 11/10/2024 16:26:27 Arrival Time: 11/10/2024 16:16:00 Initial Response Time: 11/10/2024 16:29:47Symptoms: Lt sided weakness and numbness. Initial patient interaction: 11/10/2024 16:34:34 NIHSS Assessment Completed: 11/10/2024 16:40:37Patient is not a candidate for Thrombolytic. Thrombolytic Medical Decision: 11/10/2024 16:40:38Patient was not deemed candidate for Thrombolytic because of following reasons: LKW outside 4.5 hr window. . Current intracranial hemorrhage . CT Head: I personally reviewed all the CT images that were available to me and it showed: subacute to chronic SDH in Rt hemisphere Primary Provider Notified of Diagnostic Impression and Management Plan on: 11/10/2024 16:58:38 History of Present Illness: Patient was brought by private transportation with symptoms of Lt sided weakness and numbness. 70y/o man, Vietnamese speaking, I evaluated in Vietnamese per his request, w/ HTN, DM presenting for evaluation due to persistent Lt sided weakness and numbness w/ confusion noted since yesterday 0. Some symptoms improved but others persisted and that is why his son brought him to ED today. Patient reports a fall w/ head trauma approx 1month ago. Complains of dizziness and excessive sweat, denies headaches. Past Medical History: ?Hypertension ?Diabetes Mellitus Medications: No Anticoagulant use? No Antiplatelet use Reviewed EMR for current medications Allergies:? Reviewed Social History: Smoking: Former Family History: There is no family history of premature cerebrovascular disease pertinent to this consultation ROS : 14 Points Review of Systems was performed and was negative except mentioned in HPI. Past Surgical History: There Is No Surgical History Contributory To Today?s Visit Examination: BP(155/64),?Pulse(80),?Blood Glucose(382) 1A: Level of Consciousness - Alert; keenly responsive?+ 0 1B: Ask Month and Age - Both Questions Right?+ 0 1C: Blink Eyes & Squeeze Hands - Performs Both Tasks?+ 0 2: Test Horizontal Extraocular Movements - Normal?+ 0 3: Test Visual Barahona - No Visual Loss?+ 0 4: Test Facial Palsy (Use Grimace if Obtunded) - Normal symmetry?+ 0 5A: Test Left Arm Motor Drift - No Drift for 10 Seconds?+ 0 5B: Test Right Arm Motor Drift - No Drift for 10 Seconds?+ 0 6A: Test Left Leg Motor Drift - No Drift for 5 Seconds?+ 0 6B: Test Right Leg Motor Drift - No Drift for 5 Seconds?+ 0 7: Test Limb Ataxia (FNF/Heel-Padilla) - No Ataxia?+ 0 8: Test Sensation - Normal; No sensory loss?+ 0 9: Test Language/Aphasia - Mild-Moderate Aphasia: Some Obvious Changes, Without Significant Limitation?+ 1 10: Test Dysarthria - Normal?+ 0 11: Test Extinction/Inattention - No abnormality?+ 0 NIHSS Score:?1 Pre-Morbid Modified [place] Scale:3 Points = Moderate disability; requiring some help, but able to walk without assistance This consult was conducted in real time using interactive audio and video technology. Patient was informed of the technology being used for this visit and agreed to proceed. Patient located in hospital and provider located at home/office setting. Due to the immediate potential for life-threatening deterioration due to underlying acute neurologic illness, I spent 35 minutes providing critical care. This time includes time for face to face visit via telemedicine, review of medical records, imaging studies and discussion of findings with providers, the patient and/or family. Dr Vanessa Pickens [facility] For Inpatient follow-up with [facility] physician please call [facility] at . As we are not an outpatient service for any post hospital discharge needs please contact the hospital for assistance. If you have any questions for the [facility] physicians or need to reconsult for clinical or diagnostic changes please contact us via [facility] at .
[2024-11-10 17:03] LABS: INR 1.0 (0.9-1.3); Partial Thromboplastin Time 28.8 Seconds (22.0-36.0); Prothrombin Time 11.1 Seconds (9.0-12.2)
--- NOTE | 2024-11-10 17:12 | PC.CM ---
Addendum entered by Ysabel Wagner RN 11/10/24 19:32: [facility] transfer center called me and stated they declined patient. They feel patient needs higher level of care like [facility]. I faxed information to [facility]. I started packet and made a CD. I will hand off to night ED charge nurse. Addendum entered by Ysabel Wagner RN 11/10/24 17:48: 1740 I spoke Altagracia at the transfer center at [facility]. She states she she will review the information. I also faxed paperwork to [facility]. Addendum entered by Ysabel Wagner RN 11/10/24 17:24: 1700 Starr states the transfer is not a stat. Patient sustained fall from a chair landing on his back of the head 3 weeks ago. I send information to [facility] and to [facility]. Original Note: 478 I received a referral to transfer patient for acute subdural hematoma. I spoke to Starr Carbajal to see if this was a stat transfer. I will send out to [facility].
[2024-11-10] MEDS: levETIRAcetam INJ 100 MG/ML VIAL 5ML 1000 MG IVP (17:17)
[2024-11-10] MEDS: LABETALOL INJ 5 MG/ML VIAL 20 ML 10 MG IVP (17:29)
[2024-11-10 17:30] LABS: Alanine Aminotransferase 9 U/L (10-49); Albumin, Serum 4.0 gm/dL (3.4-4.8); Albumin/Globulin Ratio 1.2 (1.2-2.2); Alkaline Phosphatase 122 U/L (46-116); Anion Gap 8 (7-16); Aspartate Amino Transferase 14 U/L (0-34); BUN/Creatinine Ratio 14 Ratio (12-20); Bilirubin,Total 0.2 mg/dL (0.3-1.2); Blood Urea Nitrogen 22 mg/dL (9-23); Calcium 8.6 mg/dL (8.3-10.6); Calcium (Corrected) 8.6 mg/dL (8.5-10.1); Carbon Dioxide 24.1 mMol/L (20.0-31.0); Chloride 103 mMol/L (98-107); Creatinine (Component) 1.6 mg/dL (0.6-1.3); Estimated Creatinine Clearance 41.5 mL/min (>60); Globulin 3.3 gm/dL (2.3-3.5); Magnesium 1.8 mg/dL (1.6-2.6); Osmolality,Calculated 292 (275-295); Potassium 4.4 mMol/L (3.4-5.1); Sodium 135 mMol/L (136-145); Total Protein 7.3 gm/dL (5.7-8.2); Troponin I < 0.020 ng/mL (0.0-0.045); eGFR 47 See Note
[2024-11-10 17:32] LABS: Glucose 438 mg/dL (74-106)
--- NOTE | 2024-11-10 17:36 | PC.NURSE ---
Patient came in to ED for left sided weakness, and numbness since yesterday afternoon. Patient walked in through ED lobby with son present, per son aside from symptoms patient was also not making sense to family and seemed more confused today and sweating daily. Patient blood sugar was checked, vitals stable. Stroke alert was called. Patient taken to CT scan. Per Teleneurologist patient hadsubdural brain bleed on CT scan. Also Per teleneuro, patients blood pressure should be maintained below 150s systolic.
[2024-11-10] MEDS: INSULIN HUM REGULAR 1 UNIT/0.01 ML (PER UNIT) 7.7 UNIT IV (18:44)
[2024-11-10 22:06] LABS: Collection Type, Urine Clean Catch
--- NOTE | 2024-11-10 22:18 | PC.NURSE ---
[facility] TRANSFER NURSE KAREY CALLED BACK, IN FORMED ME THAT [facility] TRAUMA SAID PT IS OUT OFF A WINDOW, NEUROSURGERY DR. TAVAREZ SAID IS NOT SURGICAL, CAN HAVE OUT PT FOLLOW UP IN 1 MONTH.
--- NOTE | 2024-11-10 22:20 | PC.NURSE ---
CHRISTINA COY AWARE OF [facility] RECOMENDATION.
[2024-11-10 22:24] LABS: Amphetamine/Methamp Scrn,U Negative (Negative); Barbiturate Screen,Urine Negative (Negative); Benzodiazepines Screen,Urine Negative (Negative); Benzoylecgonine Screen, Ur Negative (Negative); Fentanyl Screen,Urine Negative (Negative); Opiate Screen,Urine Negative (Negative); THC Screen,Urine Negative (Negative)
[2024-11-10 22:26] LABS: Bilirubin,Urine Negative (Negative); Blood,Urine Trace (Negative); Clarity,Urine Clear (Clear/Hazy); Color,Urine Lt-Yellow (Lt Yel-Yel); Glucose, Urine 4+ (Negative); Ketones,Urine Negative (Negative); Leukocyte Esterase,Urine Positive (Negative); Nitrite,Urine Negative (Negative); PH,Urine 6.5 (5.0-7.0); Protein,Urine Trace (Neg - Trace); RBC,Urine 40 /hpf (0-3); Specific Gravity,Urine 1.043 (1.001-1.035); Squamous Epithelial Cell,Urine < 1 /hpf (0-5); Urobilinogen,Urine Negative mg/dL (0.0-1.0); WBC,Urine 80 /hpf (0-5)
--- NOTE | 2024-11-10 23:26 | ECHO_ITS ---
Transthoracic Echo Report Ht (in): 64 Wt (lb): 170 Exam Location: Echo Lab Status: Emergency Box Order Person: Rubi Wright Indications: Procedure Performed: BP: 125 / 73 HR: 69 Technical Quality: Technically difficult study MEASUREMENTS (Male / Female) Normal Values 2D ECHO LVOT Diameter 2.0 cm LV Ejection Fraction MOD BP 38.2 % >= 55 % LV Cardiac Index MOD BP 1464.5 cm?/min?m? LV Ejection Fraction MOD 4C 32.7 % LV Cardiac Index MOD 4C 1431.6 cm?/min?m? LV Ejection Fraction 4C AL 33.8 % LV Cardiac Index 4C AL 1569.9 cm?/min?m? LV Ejection Fraction MOD 2C 42.6 % LV Cardiac Index MOD 2C 1223.4 cm?/min?m? LV Ejection Fraction 2C AL 40.5 % LV Cardiac Index 2C AL 1163.4 cm?/min?m? DOPPLER AV Peak Velocity 152.3 cm/s AV Peak Gradient 9.3 mmHg AV Mean Gradient 6.0 mmHg AV Velocity Time Integral 43.4 cm LVOT Peak Velocity 97.5 cm/s LVOT Peak Gradient 3.8 mmHg LVOT Velocity Time Integral 23.8 cm LVOT Cardiac Index 2730.6 cm?/min?m? AV Area Cont Eq vti 1.7 cm? AV Area Cont Eq pk 2.0 cm? MV Area PHT 3.9 cm? Mitral E Point Velocity 44.1 cm/s Mitral A Point Velocity 96.5 cm/s Mitral E to A Ratio 0.5 LV E' Lateral Velocity 5.8 cm/s Mitral E to LV E' Lateral Ratio 7.6 LV E' Septal Velocity 5.1 cm/s Mitral E to LV E' Septal Ratio 8.6 FINDINGS Left Ventricle Normal left ventricular size, wall thickness. The ejection fraction is visually estimated at 35-40 %. Global left ventricular systolic function is moderately decreased. There is grade I diastolic dysfunction of the left ventricle (impaired relaxation pattern). Right Ventricle The right ventricle not well visualized. The RV systolic function is normal. Left Atrium The left atrium is normal by two-dimensional, color flow and Doppler imaging with no structural abnormalities, no thrombus formation present. Right Atrium The right atrium is normal by two-dimensional imaging, color flow and Doppler imaging with no structural abnormalities, no thrombus formation present. Atrial Septum The interatrial septum appears normal with no evidence of a shunt. Aorta The aorta is normal by two-dimensional, color flow and Doppler interrogation. Mitral Valve Mild mitral annular calcification. Aortic Valve Aortic valve sclerosis. Tricuspid Valve The tricuspid valve is not well visualized. Pulmonic Valve The pulmonic valve is not well visualized. There is no significant pulmonic valve regurgitation. Vessels Inferior vena cava not well visualized. Pericardium The pericardium is normal by two-dimensional imaging. There is no significant pericardial effusion. CONCLUSIONS Indication: bubble study. All the cardiac structures suboptimally visualized. negative bubble study Normal LV size. The ejection fraction is visually estimated at 35-40 %. Global left ventricular systolic function is moderately decreased. There is grade I diastolic dysfunction. The RV not well visualized. The RV systolic function is normal. Mild MAC. Aortic valve sclerosis. The TV is not well visualized. IVC not well visualized. Stefani Tracey (Electronically Signed) Final Date: 12 November 2024 09:01
[2024-11-11] VITALS (7 sets, daily range): BP systolic 125–163; BP diastolic 73–83; PULSE 65–74; RESP 14–19; TEMP 35.9–37; O2SAT 95–98; BMI 29.0; BMI 13.0
--- NOTE | 2024-11-11 | XR_ITS ---
Examinations: MRI Brain without intravenous contrast. MRI brain with intravenous contrast MRA brain with intravenous contrast. MRA brain without intravenous contrast MRA neck with intravenous contrast Date and time of exam: November 11, 2024 1454 hours INDICATIONS: Stroke alert November 10, 2024, onset focal neurologic deficit, sudden onset confusion weakness left side of the body Technique: Multiple axial and sagittal images of the brain have been obtained Siemens high-resolution 1.5 Teresa short bore scanner is utilized. Sagittal sections, T1-weighted, TR 500, TE 14 Axial sections proton density and T2-weighted, TR 3,000, TE 34, TR 3,000, TE 91 Inversion recovery axial images, TR 9,260, TE 111, TI 2,500 Diffusion weighted images, axial sections, TR 4,800, TE 128, B value 1,000 Axial sections, ADC map, TR 4,800, TE 128. Contrast images have been obtained post intravenous 6 cc Gadolinium. T1-weighted axial and coronal images post contrast have been obtained. Angiographic images of neck and brain are obtained pre and post contrast. 3-D post processing performed, including brain, extracranial neck arterial maximum intensity projections Findings: Sellaturcica is not enlarged. The optic chiasm and infundibular stalk are not remarkable. Prepontine and interpeduncular cisterns are not enlarged. No localized enlargement of the medulla or [place]. Fourth ventricle and cerebellar tonsils normal in position. Subacute hemorrhage is not seen. Fourth ventricle is midline. Mass in the cerebellopontine angle region is not evident. 7th and 8th nerve complexes exhibits symmetry. Globes are symmetrical with no retro-orbital mass. Increased white matter signal evident Right subdural hematoma peripheral to the right cerebral hemisphere measuring up to 10 mm in thickness with mass effect upon the right lateral ventricle, shift or frontal horns to the left 2 to 3 mm Diffusion-weighted images demonstrateno focus of restricted diffusion with matching signal deficit on the ADC map. Mass-effect upon the ventricular system is not identified. Abnormal contrast enhancement is not seen. 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
--- NOTE | 2024-11-11 00:04 | ESHP_ITS ---
<Statement entered by Max Stauffer MD - 11/11/24 07:12> I have discussed and was present for the essential components of the history, physical examination, diagnosis, and treatment plan with the resident. I agree with the patient's care as documented by the resident and amended herein by me. Max Stauffer MD FACP. Documentation for date of: 11/11/24 HPI History of Present Illness Chief complaint: Left-sided weakness History of present illness: 69-year-old male with past medical history of hypertension, insulin-dependent type 2 diabetes presenting to the ED on 11/10 for left-sided weakness which started sometime around this afternoon. History taken largely from ED provider note as during examination and interview patient was alone without any family members to corroborate story. Per ED note, patient presenting with left-sided weakness and apparently had a fall about 3 weeks ago without coming to the ED at which point he fell on the back of his head from a chair. During interview, patient is awake alert oriented x 3 and is able to respond to questions appropriately in Bengali. He states that he smokes 1 pack a day for the past 30 years but denies any alcohol or illicit drug use. Patient denies having any concerning symptoms at this time such as headache, dizziness, chest pain, shortness of breath, abdominal pain or nausea/vomiting. Medical history: As stated above Surgical history: Allergies: NKDA Medications: Pending med rec Family history: Noncontributory Social history: Patient lives with family [place], [id number] history, denies alcohol or illicit substance use ROS: All 12 systems assessed and the patient denies unless otherwise stated in HPI In the ED, patient presented hypertensive 155/74, heart rate of 79, respiratory rate of 19, afebrile satting 97 on room air. Pertinent lab findings included BC 9.1, hemoglobin 11.3, MCV 87, sodium 135, creatinine 1.6, BUN 22, EGFR 47 glucose 438, magnesium 1.8, T. bili 0.2, AST 14, ALT 9, alk phos 122. Urinalysis did not show any signs of infection but there is glucosuria, pyuria and hematuria with positive leukocyte esterase. U tox was negative. Chest x-ray did not show any aspiration pneumonia, head CT showed subdural hematoma in the peripheral to the right frontotemporal parietal lobe measuring 10 mm in thickness with mass effect along with tiny hyperdense areas low-level acute bleeding cannot be ruled out versus subacute subdural hematoma. Head CT of the neck showed no significant arterial stenosis or LVO. An EKG showed sinus rhythm without any concerning ST changes. Teleneurology was consulted in the ED who evaluated NIHSS at 1 and recommended Keppra loading dose due to suspicion for seizure secondary to head trauma/subdural hematoma along with stat neurosurgery consultation, EEG and MRI with and without contrast of the brain. ED provider attempted to transfer the patient for neurosurgery consultation; however, both [facility] and [facility] neurosurgeons did not believe that the patient required emergent need for surgery and apparently recommended follow-up in 1 month to monitor the subdural hematoma. Patient will be admitted for stroke rule out with frequent neurochecks along with teleneurology consultation. Exam Vital Signs Temp Pulse Resp BP Pulse Ox O2 Del Method 97.7 F 74 21 H 145/77 H 97 Room Air 11/10/24 23:56 11/10/24 23:56 11/10/24 23:56 11/10/24 23:56 11/10/24 23:56 11/10/24 23:56 Narrative Exam Physical Exam: GENERAL: Awake, answering questions appropriately in Bengali, appears stated age HEENT: NC/AT. Moist mucosa. EOMI. Pupils 3 mm but not reactive to light CARDIO: Heart RRR, no obvious murmurs, no JVD. PULM: No coughing or visible SOB. Lungs CTA B/L. GI: Abdomen soft, NT/ND, +BS. SKIN/MSK/EXT: No wounds/discoloration/rashes/edema/amputations. +Pedal pulses present B/L. NEURO: Oriented x3, cranial nerves II to XII grossly intact, Moves extremities x4, muscle strength 5 out of 5 in bilateral upper and lower extremities, no focal neurologic deficits noted Results: Labs 11/10/24 16:36 11/10/24 16:36 Labs: Short CBC 11/10/24 Range/Units 16:36 WBC 9.1 (3.8-10.6) Thou/mm3 Hgb 11.3 L (13.5-16.0) g/dL Hct 33.7 L (41.0-53.0) % Plt Count 252 (140-440) Thou/mm3 BMP 11/10/24 16:36 Sodium 135 L Potassium 4.4 Chloride 103 Carbon Dioxide 24.1 BUN 22 Creatinine 1.6 H Glucose 438 H* Calcium 8.6 Cardiac Enzymes 11/10/24 Range/Units 16:36 Troponin I < 0.020 (0.0-0.045) ng/mL Liver Function 11/10/24 Range/Units 16:36 Total Bilirubin 0.2 L (0.3-1.2) mg/dL AST 14 (0-34) U/L ALT 9 L (10-49) U/L Alkaline Phosphatase 122 H (46-116) U/L Albumin 4.0 (3.4-4.8) gm/dL Urine 11/10/24 Range/Units 22:01 Urine Color Lt-Yellow (Lt Yel-Yel) Urine Clarity Clear (Clear/Hazy) Urine pH 6.5 (5.0-7.0) Ur Specific [place] 1.043 H (1.001-1.035) Urine Protein Trace (Neg - Trace) Urine Glucose (UA) 4+ A (Negative) Quality Measures Quality Measures none Advance care planning discussed with:: patient Medications Home Medications and Allergies Home Medications ?Medication ?Instructions ?Recorded ?Confirmed ?Type captopril 25 mg tablet 25 mg PO QDAY #0 tabs 12/11/20 History Allergies Allergy/AdvReac Type Severity Reaction Status Date / Time No Known Allergies Allergy Verified 11/10/24 16:19 Visit Medications Acetaminophen (Acetaminophen 325 Mg Tablet) 650 mg PO Q6H PRN PRN Reason: PAIN SCALE 1-3 (mild Stop: 12/10/24 23:23 Dextrose (Dextrose 50%-Water Inj 50 Ml Syringe) 25 ml IV Q15MIN PRN PRN Reason: BG 50-70 responsive npo pt Stop: 12/10/24 23:23 Dextrose (Dextrose 50%-Water Inj 50 Ml Syringe) 50 ml IV Q15MIN PRN PRN Reason: BG <50 OR BG <70 & pt unresponsive Stop: 12/10/24 23:23 Glucagon (Glucagon Inj 1 Mg Vial) 1 mg IM Q15MIN PRN PRN Reason: BG <70, and no IV access Hydralazine HCl (Hydralazine Inj 20 Mg/Ml Vial) 10 mg IVP Q2HR PRN PRN Reason: If BP >150/90 and HR <75 Stop: 12/11/24 01:59 Lactated Ringer's (Lactated Ringers) 1,000 mls @ 75 mls/hr IV .[id number] YELITZA Stop: 11/11/24 12:49 Insulin Human Lispro (Insulin Lispro (Admelog) 1 Unit/0.01 Ml Unit) 0 unit SC Q6HR YELITZA; Protocol Stop: 12/11/24 00:00 Labetalol HCl (Labetalol Inj 5 Mg/Ml Vial 20 Ml) 10 mg IVP Q15M PRN PRN Reason: If BP >150/90 and HR >75 Levetiracetam (Levetiracetam Inj 100 Mg/Ml Vial 5ml) 500 mg IVP Q12HR YELITZA Stop: 12/11/24 08:59 Ondansetron HCl (Ondansetron Inj 2 Mg/Ml Inj 2 Ml) 4 mg IVP Q4HR PRN PRN Reason: NAUSEA OR VOMITING Stop: 12/10/24 16:24 Sennosides (Senna Tablet) 1 tab PO QDAY PRN; Protocol PRN Reason: constipation Stop: 12/10/24 23:23 Discontinued Medications Insulin Human Regular (Insulin Hum Regular 1 Unit/0.01 Ml (Per Unit)) 7.7 unit 0.1 unit/kg (7.7 unit) IV X1 ONE Stop: 11/10/24 17:58 Last Admin: 11/10/24 18:44 Dose: 7.7 unit Labetalol HCl (Labetalol Inj 5 Mg/Ml Vial 20 Ml) 10 mg IVP Q15M PRN PRN Reason: HYPER Stop: 11/11/24 00:02 Last Admin: 11/10/24 17:29 Dose: 10 mg Levetiracetam (Levetiracetam Inj 100 Mg/Ml Vial 5ml) 1,000 mg IVP X1 ONE Stop: 11/10/24 16:49 Last Admin: 11/10/24 17:17 Dose: 1,000 mg Assessment & Plan Plan 69-year-old male with past medical history of hypertension, insulin-dependent type 2 diabetes presenting to the ED on 11/10 for left-sided weakness which started sometime around this afternoon will be admitted for stroke rule out with frequent neurochecks along with teleneurology consultation. #Stroke/TIA rule out #Subdural hematoma, subacute As noted above in HPI, patient presenting with left-sided deficits which are not currently present Has history of a fall about 3 weeks ago where he fell on the back of his head and did not seek emergency care On initial assessment, patient's NIHSS of 1 by teleneurology with recommendations highlighted in note On assessment, patient does not have reactive pupils but otherwise neurologic exam is grossly negative U tox was negative. Chest x-ray did not show any aspiration pneumonia head CT showed subdural hematoma in the peripheral to the right frontotemporal parietal lobe measuring 10 mm in thickness with mass effect along with tiny hyperdense areas low-level acute bleeding cannot be ruled out versus subacute subdural hematoma Head CT of the neck showed no significant arterial stenosis or LVO EKG showed sinus rhythm without any concerning ST changes. Plan: Teleneurology consulted, appreciate recommendations MR stroke protocol Avoid anticoagulation or antiplatelets at this time Allow for blood pressure to be less than 150/90 with as needed antihypertensive (labetalol or hydralazine) N.p.o., spending speech eval Physical therapy Head of bed greater than 30 Aspiration precautions Monitor blood sugar Euthermic As per recommendations by neurosurgery from [facility] no need to repeat CT within 8 to 12 hours or every neurochecks; apparently need to repeat CT in 1 month #Seizures? Patient does not have any medical history of seizures Teleneurologist believes symptoms could be secondary to seizures from subdural hematoma Loading dose of Keppra was given Plan: Continue Keppra 500 IV twice daily Follow-up with neurology consultation EEG ordered Seizure precautions 2 mg IV midazolam as needed for breakthrough seizure #NITIN on CKD Patient presenting with increasing creatinine from baseline Plan: Continue gentle IV fluid resuscitation Avoid renally toxic medications Renally dose medications Monitor with morning labs #Insulin-dependent type 2 diabetes Last A1c of 11.4 on 04/17/2024 Plan: Follow-up on A1c Sliding scale insulin #Hypertension History of hypertension with home antihypertensive Currently goal is to keep blood pressure less than 150/90 as per teleneurology Plan: As above #Normocytic anemia No signs of active bleeding other than subdural hematoma as above, no hematuria, hematemesis, melena or hematochezia Hemoglobin 11.3 with MCV of 87 Patient has chronic anemia noted per chart Plan: Consider iron panel, ferritin and reticulocyte count Health Maintenance: Lines: PIV Diet: N.p.o. pending speech eval Bowel: Senna as needed GI prophylaxis: Not needed DVT prophylaxis: SCD Dispo: Stroke rule out with MRI, teleneurology consultation with EEG for seizures Code: Full Patient seen and assessed with attending Dr. Eh Nick, DO PGY-2 Internal Medicine - GME
[2024-11-11] MEDS: RINGERS LACTATED 1000 ML 1,000 ML 75 ML IV (00:11)
[2024-11-11] MEDS: INSULIN LISPRO (AdmeLOG) 1 UNIT/0.01 ML UNIT SC ×4 (01:13→21:30)
[2024-11-11] MEDS: Magnesium Sulfate 4 GM Ivpb 4 GM/50 ML BAG IV (01:32)
[2024-11-11 05:25] LABS: Basophils # (Auto) 0.1 Thou/mm3 (0.0-0.2); Basophils % (Auto) 1 % (0-2.5); Eosinophils # (Auto) 0.2 Thou/mm3 (0.0-0.5); Eosinophils % (Auto) 2 % (0-10); Hematocrit 33.3 % (41.0-53.0); Hemoglobin 11.2 g/dL (13.5-16.0); Immature Granulocytes Auto 0.05 Thou/mm3 (0.00-0.00); Lymphocytes # (Auto) 1.9 Thou/mm3 (1.0-4.8); Lymphocytes % (Auto) 24 % (10-50); Mean Corpuscular HGB Conc 33.6 g/dl (31.0-37.0); Mean Corpuscular Hemoglobin 29.8 pg (25.0-35.0); Mean Corpuscular Volume 89 fL (80-100); Monocytes # (Auto) 0.8 Thou/mm3 (0.0-0.8); Monocytes % (Auto) 10 % (0-12); Neutrophils # (Auto) 4.9 Thou/mm3 (1.8-7.7); Neutrophils % (Auto) 62 % (37-80); Nucleated Red Blood Cell # 0.00 Thou/mm3 (0.00-0.00); Nucleated Red Blood Cell % 0 /100 WBC (0); Platelet Count 237 Thou/mm3 (140-440); RDW Standard Deviation 42.3 fL (35.1-43.9); Red Blood Count 3.76 Miln/mm3 (4.50-5.90); White Blood Count 7.9 Thou/mm3 (3.8-10.6)
[2024-11-11 05:37] LABS: Glucose Estimated Average 318 mg/dL (80-131); Hemoglobin A1C 12.7 % Hgb (4.8-6.0)
[2024-11-11 05:52] LABS: Ferritin 39 ng/mL (10.5-307.3); Iron 50 mcg/dL (65-175); Percent Iron Saturation 17 % (20-55); Total Iron Binding Capacity 280 mcg/dL (250-425); Unsaturated Iron Binding 230 (225-295)
[2024-11-11 06:17] LABS: Alanine Aminotransferase 8 U/L (10-49); Albumin, Serum 3.7 gm/dL (3.4-4.8); Albumin/Globulin Ratio 1.2 (1.2-2.2); Alkaline Phosphatase 98 U/L (46-116); Anion Gap 8 (7-16); Aspartate Amino Transferase 13 U/L (0-34); BUN/Creatinine Ratio 15 Ratio (12-20); Bilirubin,Total 0.2 mg/dL (0.3-1.2); Blood Urea Nitrogen 19 mg/dL (9-23); Calcium 8.7 mg/dL (8.3-10.6); Calcium (Corrected) 8.9 mg/dL (8.5-10.1); Carbon Dioxide 26.7 mMol/L (20.0-31.0); Cardiac Risk Estimate 6.8 RATIO (4.0-6.7); Chloride 105 mMol/L (98-107); Cholesterol 191 mg/dL (132-200); Creatinine (Component) 1.3 mg/dL (0.6-1.3); Estimated Creatinine Clearance 51.0 mL/min (>60); Globulin 3.2 gm/dL (2.3-3.5); Glucose 264 mg/dL (74-106); HDL Cholesterol 28 mg/dL (40-60); LDL Cholesterol,Calculated 125 mg/dL (0-130); Magnesium 2.0 mg/dL (1.6-2.6); Osmolality,Calculated 290 (275-295); Phosphorous 3.3 mg/dL (2.4-5.1); Potassium 4.1 mMol/L (3.4-5.1); Sodium 140 mMol/L (136-145); Total Protein 6.9 gm/dL (5.7-8.2); Triglycerides 191 mg/dL (30-150); eGFR 60 See Note
--- NOTE | 2024-11-11 07:29 | ESPR_ITS ---
<Statement entered by Elder Levine MD - 11/13/24 12:40> I reviewed above note and agree with findings and plans. I have also personally examined the patient with medicine team and went over assessment and plan with medical team including fashion buying internship and resident physician. <Statement entered by Ronnie Quinn MD - 11/11/24 17:41> Patient was seen and examined at the bedside. Patient is admitted overnight for subdural hematoma most likely old and stable. Initially neurosurgeon was consulted and they did not recommend immediate transfer. Patient was placed on Keppra for seizure prophylaxis in the ED. EEG was ordered. Neurology has been consulted for further recommendations. Patient was started on atorvastatin 40 mg at bedtime due to high LDL. No anticoagulation was recommended. Repeat CT scan brain showed stable small subdural hematoma peripheral to right frontal temporal parietal lobe. 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 Will continue with neurochecks every 4 hourly. Examination showed mildly reactive pupils to light. Pending echocardiogram. Continuing Keppra 500 mg twice daily until neurology recommends to hold Keppra for EEG. Neurology recommended to avoid glucocorticoids. A1c was found to be 12.7. Recommended to continue insulin sliding scale correction scale 2. Lantus 5 units was given x 1 in continue Lantus 10 units every afternoon. Diet was switched to carb consistent. All labs and orders were reviewed. I discussed and supervised with the fashion buying internship physician who took care of this patient. I personally saw and examined the patient. I agree with most of the assessment and plan. Disclaimer: Despite multiple revisions, due to the dictation software being used, the document bellow may not be free of grammatical errors including phonetic/typographic errors. However, this does not deter from our commitment to providing health care in the patient's best interest in mind. Plan of care discussed with attending Physician Dr. Abner Quinn MD PGY-3 Documentation for date of: 11/11/24 Subjective Subjective Interval history: No acute events overnight no transfer needed for Neurosurgery intervention for old subdural bleed likely 2/2 fall with headstrike 3 weeks ago. Exam Vital Signs Temp Pulse Resp BP Pulse Ox O2 Del Method 98.2 F 67 16 144/83 H 97 Room Air 11/11/24 04:00 11/11/24 05:46 11/11/24 05:46 11/11/24 05:46 11/11/24 05:46 11/11/24 05:46 Narrative Exam GENERAL: no acute distress, AAO x3, comfortably laying in bed HEENT: Head AT/ NC. Mucous membranes moist. PERRL. NECK: Supple, no lymphadenopathy, no carotid bruits. CARDIOVASCULAR: RRR. Normal S1/S2, No m/r/g. No pitting edema of bilateral LEs. RESPIRATORY: CTAB. No wheezing, rhonchi, crackles. GASTROINTESTINAL: Abdomen soft, non tender no palpable masses. Bowel sounds present MUSCULOSKELETAL:? No cyanosis or edema, no visible joint swelling. NEUROLOGICAL: CN II-XII grossly intact. No focal deficits. Sensation intact, symmetric. (no left sided weakness noted on exam) PSYCHIATRIC: Awake and alert, not agitated, normal mood and affect. SKIN: No obvious rashes, no jaundice, normal turgor. Objective Labs 11/11/24 04:56 11/11/24 04:56 Labs: Laboratory Results - last 24 hr 11/10/24 11/10/24 11/11/24 16:36 22:01 04:56 WBC 9.1 7.9 RBC 3.86 L 3.76 L Hgb 11.3 L 11.2 L Hct 33.7 L 33.3 L MCV 87 89 MCH 29.3 29.8 MCHC 33.5 33.6 RDW Std Deviation 41.1 42.3 Plt Count 252 237 Neut % (Auto) 67 62 Lymph % (Auto) 21 24 Williams % (Auto) 8 10 Eos % (Auto) 2 2 Baso % (Auto) 0 1 Neut # (Auto) 6.1 4.9 Lymph # (Auto) 2.0 1.9 Williams # (Auto) 0.8 0.8 Eos # (Auto) 0.2 0.2 Baso # (Auto) 0.0 0.1 Immature Gran # (Auto) 0.04 H 0.05 H Absolute Nucleated RBC 0.00 0.00 Immature Gran % 0 1 H Nucleated RBC % 0 0 PT 11.1 INR 1.0 APTT 28.8 Sodium 135 L 140 Potassium 4.4 4.1 Chloride 103 105 Carbon Dioxide 24.1 26.7 Anion Gap 8 8 BUN 22 19 Creatinine 1.6 H 1.3 Estim Creat Clear Calc 41.5 L 51.0 L eGFR 47 L 60 BUN/Creatinine Ratio 14 15 Glucose 438 H* [address] Glu mg/dL 318 H Hemoglobin A1c 12.7 H Calculated Osmolality 292 290 Calcium 8.6 8.7 Corrected Calcium 8.6 8.9 Phosphorus 3.3 Magnesium 1.8 2.0 Iron 50 L TIBC 280 Iron Saturation 17 L Unsat Iron Binding 230 Ferritin 39 Total Bilirubin 0.2 L 0.2 L AST 14 13 ALT 9 L 8 L Alkaline Phosphatase 122 H 98 D Troponin I < 0.020 Total Protein 7.3 6.9 Albumin 4.0 3.7 Globulin 3.3 3.2 Albumin/Globulin Ratio 1.2 1.2 Triglycerides 191 H Cholesterol 191 LDL Cholesterol, Calc 125 HDL Cholesterol 28 L Cholesterol/HDL Ratio 6.8 H Ur Collection Type Clean Catch Urine Color Lt-Yellow Urine Clarity Clear Urine pH 6.5 Ur Specific [place] 1.043 H Urine Protein Trace Urine Glucose (UA) 4+ A Urine Ketones Negative Urine Blood Trace Urine Nitrite Negative Urine Bilirubin Negative Urine Urobilinogen (Auto) Negative Ur Leukocyte Esterase Positive Urine RBC 40 H Urine WBC 80 H Ur Squamous Epith Cells < 1 Urine Bacteria None Urine Opiates Screen Negative Urine Fentanyl Screen Negative Ur Barbiturates Screen Negative U Amphetamin/Meth Scrn Negative U Benzodiazepines Scrn Negative U Cocaine Metab Screen Negative U Marijuana (THC) Screen Negative Quality Measures Quality Measures none Advance care planning discussed with:: patient and child Assessment & Plan Assessment Current Active Medications: Generic Name Dose Route Start Last Admin Trade Name Freq PRN Reason Stop Dose Admin Acetaminophen 650 mg 11/10/24 23:24 Acetaminophen 325 Mg Tablet PO 12/10/24 23:23 Q6H PRN PAIN SCALE 1-3 (mild Dextrose 25 ml 11/10/24 23:24 Dextrose 50%-Water Inj 50 Ml Syringe IV 12/10/24 23:23 Q15MIN PRN BG 50-70 responsive npo pt Dextrose 50 ml 11/10/24 23:24 Dextrose 50%-Water Inj 50 Ml Syringe IV 12/10/24 23:23 Q15MIN PRN BG <50 OR BG <70 & pt unresponsive Glucagon 1 mg 11/10/24 23:24 Glucagon Inj 1 Mg Vial IM Q15MIN PRN BG <70, and no IV access Hydralazine HCl 10 mg 11/11/24 00:01 Hydralazine Inj 20 Mg/Ml Vial IVP 12/11/24 01:59 Q2HR PRN If BP >150/90 and HR <75 Lactated Ringer's 1,000 mls @ 75 mls/hr 11/10/24 23:30 11/11/24 00:11 Lactated Ringers IV 11/11/24 12:49 75 mls/hr .[id number] YELITZA Administration Insulin Human Lispro 0 unit 11/11/24 00:00 11/11/24 01:13 Insulin Lispro (Admelog) 1 Unit/0.01 Ml Unit SC 12/11/24 00:00 4 unit Q6HR YELITZA Administration Protocol Labetalol HCl 10 mg 11/11/24 00:02 Labetalol Inj 5 Mg/Ml Vial 20 Ml IVP Q15M PRN If BP >150/90 and HR >75 Levetiracetam 500 mg 11/11/24 09:00 Levetiracetam Inj 100 Mg/Ml Vial 5ml IVP 12/11/24 08:59 Q12HR YELITZA Midazolam HCl 2 mg 11/11/24 00:38 Midazolam Inj 1 Mg/Ml Vial 2 Ml IM 11/16/24 00:37 Q30M PRN Breakthrough seizure Ondansetron HCl 4 mg 11/10/24 16:25 Ondansetron Inj 2 Mg/Ml Inj 2 Ml IVP 12/10/24 16:24 Q4HR PRN NAUSEA OR VOMITING Sennosides 1 tab 11/10/24 23:24 Senna Tablet PO 12/10/24 23:23 QDAY PRN constipation Protocol Plan 69-year-old male with past medical history of hypertension, poorly controlled insulin-dependent type 2 diabetes presenting to the ED on 11/10 for left-sided weakness, now resolved, (had fall 3 weeks ago), found to have small stable subdural hematoma peripheral to R fronto temporal parietal lobe. pending Brain MR, EEG and neuro recs, PT reccomend SNF however family prefers home with . #Subdural hematoma, subacute- STABLE #Stroke/TIA ruled out As noted above in HPI, patient presenting with left-sided deficits which are not currently present Has history of a fall about 3 weeks ago where he fell on the back of his head and did not seek emergency care On initial assessment, patient's NIHSS of 1 by teleneurology with recommendations highlighted in note On assessment, patient does not have reactive pupils but otherwise neurologic exam is grossly negative U tox was negative. Chest x-ray did not show any aspiration pneumonia head CT showed subdural hematoma in the peripheral to the right frontotemporal parietal lobe measuring 10 mm in thickness with mass effect along with tiny hyperdense areas low-level acute bleeding cannot be ruled out versus subacute subdural hematoma Head CT of the neck showed no significant arterial stenosis or LVO EKG showed sinus rhythm without any concerning ST changes. Plan: Teleneurology consulted, appreciate recommendations Avoid anticoagulation or antiplatelets at this time Allow for blood pressure to be less than 150/90 with as needed antihypertensive (labetalol or hydralazine) Speech eval completed, cleared Head of bed greater than 30 Aspiration precautions Monitor blood sugar Euthermic, APAP 650 PRN Physical therapy, recommended SNF however family prefers home with Home health ECHO pending MR stroke protocol pending repeat NCHCT: Stable small subdural hematoma peripheral to the right frontal temporal parietal lobe #Seizures? Patient does not have any medical history of seizures Teleneurologist believes symptoms could be secondary to seizures from subdural hematoma Loading dose of Keppra was given Plan: Neuro consulted, appreciate recs. Continue Keppra 500 mg PO BID Follow-up with neurology consultation EEG pending Seizure precautions 2 mg IV midazolam as needed for breakthrough seizure #NITIN on CKD- Resolved Patient presenting with increasing creatinine from baseline Cr, back at baseline 1.3 Plan: Continue gentle IV fluid resuscitation Avoid renally toxic medications Renally dose medications Monitor with morning labs #Insulin-dependent type 2 diabetes- poorly controlled Last A1c of 11.4 on 04/17/2024 A1c 12,7 Holding home metformin 500 BID Plan: Step 2 SSI ACHS 15 units Long acting with insulin QHS 5 units short acting insulin with meals #Hypertension History of hypertension with home antihypertensive Currently goal is to keep blood pressure less than 150/90 as per teleneurology Plan: As above #Normocytic anemia No signs of active bleeding other than subdural hematoma as above, no hematuria, hematemesis, melena or hematochezia Hemoglobin 11.3 with MCV of 87- STABLE Patient has chronic anemia noted per chart Plan: Consider iron panel, ferritin and reticulocyte count #Hyperlipidemia triglycerides 191 start atorvastatin 40 mg QD Health Maintenance: Lines: PIV Diet: Regular Full diet Bowel: Senna as needed GI prophylaxis: Not needed DVT prophylaxis: SCD Dispo: Stroke rule out with MRI, teleneurology consultation with EEG for seizures, PT rec SNF but family prefer home with HH. Code: Full Case discussed with my senior resident Dr. Quinn Case discussed with my attending Dr. Abner Nicole MD PGY-1
[2024-11-11] MEDS: INSULIN GLARGINE (Lantus) 5 UNIT/0.05 ML (PER 5 UNITS) SC (08:41)
[2024-11-11] MEDS: levETIRAcetam INJ 100 MG/ML VIAL 5ML 500 MG IVP (08:42)
--- NOTE | 2024-11-11 11:53 | XR_ITS ---
Examination: CT brain head without contrast. 2-D sagittal coronal reconstructions Date and time of exam:November 11, 2024 1247 hours Comparison October 14, 2024 INDICATIONS: Stroke alert November 10, 2024, right subdural hematoma peripheral to the right frontal temporal parietal region with mild mass effect on CT examination May 13, 2024 CTDI: vol (mGy):52.5 DLP: (mGycm):1029 Technique: Multiple CT axial sections of the brain have been obtained, 5 mm slice thickness. Contrast has not been administered. 2-D sagittal, coronal reconstructions have been obtained Low dose protocols were performed. One or more of the following dose reduction techniques were used; automated exposure control, adjustment of the mA and/or KV according to patient size, use of iterative reconstruction technique. Findings: Stable subdural hematoma peripheral to the right frontal temporal parietal lobe which measures up to 10 mm in thickness Mass effect upon the right lateral ventricular system is again noted, coronal image 21, shift of the frontal horns to the left on this study approximately 2 mm Ventricles are not enlarged No interval acute intra-axial hemorrhage IMPRESSION: Stable small subdural hematoma peripheral to the right frontal temporal parietal lobe
--- NOTE | 2024-11-11 12:46 | PC.RT ---
Went to evaluate patient for EEG and patient was out of his room for procedure at this time
--- NOTE | 2024-11-11 13:08 | PD.RESCONSUL ---
HPI Data of Consult Requesting Physician: Max Stauffer MD Admitting Provider: Max Stauffer MD Attending Provider: Max Stauffer MD Primary Care Provider: Physician No Primary/Family Consult Narrative History of present illness: Mr. Cordova is a 69 y/o male with PMH HTN, insulin-dependent type 2 diabetes who presented to the ED on 11/10 for left-sided weakness, unknown LKAW. Per ED note, patient presented with left-sided weakness and had a fall with headstrike about 3 weeks ago without seeking medical attention. Smokes 1 PPD x 30 years, denies any alcohol or recreational drug use. In the ED, BP 155/74, normocytic normochromic anemia with hgb 11.3, glucose 438. UA postive for hematuria, pyuria, glucosuria. UDS negative. CT head showed subacute subdural hematoma with small areas of acute bleeding within the larger subdural hematoma, mass effect on anterior horn of right lateral ventricle. CTA negative. EKG unremarkable. Presentation in ED unremarkable, AOx3. NIHSS 1. Given Keppra loading dose. Both [facility] and [facility] neurosurgeons did not think surgery is necessary at this time. 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 A1C 11.4 at that time. Patient examined at bedside. Reports no weakness, paresthesias, headache, acute change in vision, or dizziness. Patient reports that he has had one seizure with convulsions in the past many years ago. cc:: cc: Max Stauffer MD Review of Systems Review of Systems Narrative Review of Systems: 14 point ROS negative other than HPI Exam Vital Signs Temp Pulse Resp BP Pulse Ox O2 Del Method 96.8 F 69 17 125/73 95 Room Air 11/11/24 12:11/11/24 12:11/11/24 12:11/11/24 12:11/11/24 12:11/11/24 12:00 Narrative Exam General: No acute distress, well nourished Eye: PERRL, EOMI, normal conjunctiva, no scleral icterus HENT: Normocephalic, atraumatic, hearing intact to conversation at normal volume, moist oral mucosa Neck: Supple, non-tender, no JVD, no lymphadenopathy Lungs: Non-labored respirations, symmetric chest rise Heart: Peripheral pulses intact bilaterally Abdomen: Soft, non-tender, non-distended Musculoskeletal: Normal range of motion and strength Skin: Skin is warm, dry, no rashes or lesions. Psychiatric: Cooperative, appropriate mood and affect Neurologic: Mental status: Orientation: AOx3 Communication: Patient is cooperative and can follow simple instructions Language: Speech fluent, normal rate and volume, comprehension intact Cranial nerves: CN II: Visual monge intact CN III: Pupils equal, round, and reactive to light CN III, IV, : No gaze deviation, no nystagmus Horizontal pursuit: intact Vertical pursuit: intact Ptosis: none CN V: Facial sensation to light touch intact bilaterally at the forehead, cheeks, and jaw line CN VII: Face symmetric, no facial droop appreciated CN VIII: Able to hear and respond to conversation at normal volume, intact to finger rub CN IX, X: Palate elevation symmetric, uvula midline CN XI: Head turn and shoulder shrug strong, symmetric bilaterally CN XII: Normal tongue protrusion without deviation, no fasciculations Motor: Normal bulk and tone No atrophy No abnormal movements or fasciculations Muscle strength: Shoulder abduction: R 5/5 L 5/5 Elbow flexion: R 5/5 L 5/5 Elbow extension: R 5/5 L 5/5 Hip flexion: R 5/5 L 5/5 Hip extension: R 5/5 L 5/5 Sensory: RUE: Light touch intact LUE: Light touch intact RLE: Light touch intact LLE: Light touch intact Reflexes: Biceps (C5-6): R 2+ L 2+ Brachioradialis (C5-6): R 2+ L 2+ Triceps (C7-8): R 2+ L 2+ Patellae (L3-4): R 2+ L 2+ Achilles (S1-2):R 2+ L 2+ No clonus Cerebellum: RUE: No dysmetria (finger to nose), no dysdiadochokinesia (rapid alternating movements) LUE: No dysmetria (finger to nose), no dysdiadochokinesia (rapid alternating movements) Results Labs 11/11/24 04:56 11/11/24 04:56 Labs: Short CBC 11/10/24 11/11/24 Range/Units 16:36 04:56 WBC 9.1 7.9 (3.8-10.6) Thou/mm3 Hgb 11.3 L 11.2 L (13.5-16.0) g/dL Hct 33.7 L 33.3 L (41.0-53.0) % Plt Count 252 237 (140-440) Thou/mm3 BMP 11/10/24 11/11/24 16:36 04:56 Sodium 135 L 140 Potassium 4.4 4.1 Chloride 103 105 Carbon Dioxide 24.1 26.7 BUN 22 19 Creatinine 1.6 H 1.3 Glucose 438 H* 264 H D Calcium 8.6 8.7 Cardiac Enzymes 11/10/24 Range/Units 16:36 Troponin I < 0.020 (0.0-0.045) ng/mL Liver Function 11/10/24 11/11/24 Range/Units 16:36 04:56 Total Bilirubin 0.2 L 0.2 L (0.3-1.2) mg/dL AST 14 13 (0-34) U/L ALT 9 L 8 L (10-49) U/L Alkaline Phosphatase 122 H 98 D (46-116) U/L Albumin 4.0 3.7 (3.4-4.8) gm/dL Urine 11/10/24 Range/Units 22:01 Urine Color Lt-Yellow (Lt Yel-Yel) Urine Clarity Clear (Clear/Hazy) Urine pH 6.5 (5.0-7.0) Ur Specific [place] 1.043 H (1.001-1.035) Urine Protein Trace (Neg - Trace) Urine Glucose (UA) 4+ A (Negative) Quality Measures Quality Measures none Advance care planning discussed with:: patient Medications Home Medications and Allergies Home Medications ?Medication ?Instructions ?Recorded ?Confirmed ?Type captopril 25 mg tablet 25 mg PO QDAY #0 tabs 09/14/16 11/11/24 History Allergies Allergy/AdvReac Type Severity Reaction Status Date / Time No Known Allergies Allergy Verified 11/10/24 16:19 Visit Medications Acetaminophen (Acetaminophen 325 Mg Tablet) 650 mg PO Q6H PRN PRN Reason: PAIN SCALE 1-3 (mild Stop: 12/10/24 23:23 Atorvastatin Calcium (Atorvastatin Calcium 20 Mg Tablet) 40 mg PO HS YELITZA Stop: 12/11/24 20:59 Dextrose (Dextrose 50%-Water Inj 50 Ml Syringe) 25 ml IV Q15MIN PRN PRN Reason: BG 50-70 responsive npo pt Stop: 12/10/24 23:23 Dextrose (Dextrose 50%-Water Inj 50 Ml Syringe) 50 ml IV Q15MIN PRN PRN Reason: BG <50 OR BG <70 & pt unresponsive Stop: 12/10/24 23:23 Glucagon (Glucagon Inj 1 Mg Vial) 1 mg IM Q15MIN PRN PRN Reason: BG <70, and no IV access Hydralazine HCl (Hydralazine Inj 20 Mg/Ml Vial) 10 mg IVP Q2HR PRN PRN Reason: If BP >150/90 and HR <75 Stop: 12/11/24 01:59 Insulin Glargine (Insulin Glargine (Lantus) 5 Unit/0.05 Ml (Per 5 Units)) 10 unit SC QPM YELITZA Stop: 12/11/24 20:59 Insulin Human Lispro (Insulin Lispro (Admelog) 1 Unit/0.01 Ml Unit) 0 unit SC Q6HR YELITZA; Protocol Stop: 12/11/24 00:00 Last Admin: 11/11/24 11:52 Dose: 4 unit Labetalol HCl (Labetalol Inj 5 Mg/Ml Vial 20 Ml) 10 mg IVP Q15M PRN PRN Reason: If BP >150/90 and HR >75 Levetiracetam (Levetiracetam Inj 100 Mg/Ml Vial 5ml) 500 mg IVP Q12HR YELITZA Stop: 12/11/24 08:59 Last Admin: 11/11/24 08:42 Dose: 500 mg Midazolam HCl (Midazolam Inj 1 Mg/Ml Vial 2 Ml) 2 mg IM Q30M PRN PRN Reason: Breakthrough seizure Stop: 11/16/24 00:37 Ondansetron HCl (Ondansetron Inj 2 Mg/Ml Inj 2 Ml) 4 mg IVP Q4HR PRN PRN Reason: NAUSEA OR VOMITING Stop: 12/10/24 16:24 Sennosides (Senna Tablet) 1 tab PO QDAY PRN; Protocol PRN Reason: constipation Stop: 12/10/24 23:23 Discontinued Medications Lactated Ringer's (Lactated Ringers) 1,000 mls @ 75 mls/hr IV .[id number] [facility] Stop: 11/11/24 12:49 Last Admin: 11/11/24 00:11 Dose: 75 mls/hr Magnesium Sulfate (Magnesium Sulfate Ivpb) 4 gm in 50 mls @ 12.5 mls/hr IV X1 ONE Stop: 11/11/24 04:25 Last Infusion: 11/11/24 05:55 Dose: Infused Insulin Glargine (Insulin Glargine (Lantus) 5 Unit/0.05 Ml (Per 5 Units)) 5 unit SC X1 ONE Stop: 11/11/24 07:50 Last Admin: 11/11/24 08:41 Dose: 5 unit Insulin Human Lispro (Insulin Lispro (Admelog) 1 Unit/0.01 Ml Unit) 0 unit SC Q6HR [facility]; Protocol Stop: 12/11/24 00:00 Last Admin: 11/11/24 01:13 Dose: 4 unit Insulin Human Regular (Insulin Hum Regular 1 Unit/0.01 Ml (Per Unit)) 7.7 unit 0.1 unit/kg (7.7 unit) IV X1 ONE Stop: 11/10/24 17:58 Last Admin: 11/10/24 18:44 Dose: 7.7 unit Labetalol HCl (Labetalol Inj 5 Mg/Ml Vial 20 Ml) 10 mg IVP Q15M PRN PRN Reason: HYPER Stop: 11/11/24 00:02 Last Admin: 11/10/24 17:29 Dose: 10 mg Levetiracetam (Levetiracetam Inj 100 Mg/Ml Vial 5ml) 1,000 mg IVP X1 ONE Stop: 11/10/24 16:49 Last Admin: 11/10/24 17:17 Dose: 1,000 mg Assessment & Plan Plan #Subacute subdural hematoma 2/2 ground level fall #Hyperlipidemia TIA, seizure Hx stroke: Right cerebellar infarct Hx afib: none Smoking hx: 1 PPD x 30 years Patient reports hx of seizure many years ago Initial symptoms: left-sided weakness Patient had a fall with head strike 3 weeks ago, did not seek medical attention LKAW: unknown Initial NIHSS: 1 (mild-moderate aphasia) Inital BP: 155/74 EKG: NSR HR 78, QTc 419 Initial glucose: 438 UDS: negative A1C: 12.7 Lipids: Triglyceride 191 high, cholesterol 191, LDL 125, HDL 28 low TSH: 6.43 high (04/2024) Free T4: 0.98 WNL (04/2024) Troponin: negative x1 CT head w/o 11/10: Subacute subdural hematoma peripheral to right frontotemporal parietal lobe 10 mm thick with mass effect on right lateral ventricle frontal horn with 3 mm shift to left. Tiny hyperdense areas within subdural hematoma c/f low-level acute bleed. Old infarct right cerebellar hemisphere. Repeat CT head w/o 11/11: Stable small subdural hematoma peripheral to right frontal temporal parietal lobe, 10 mm thick, 2 mm mass effect on right lateral ventricle frontal horn CTA head/neck w/: Negative for significant neck arterial stenosis, no LVO. Heavy calcification of right carotid bifurcation with 30% stenosis MRI/MRA w/ and w/o: Subdural hematoma peripheral to right cerebral hemisphere, 10 mm thick, mild mass effect upon ventricular system. No acute infarct. Moderate microvascular white matter changes. No significant carotid stenoses, no abnormal enhancing cerebellar or cerebral lesions. Small old infarct right cerebellar hemisphere. TTE: Meds given: Keppra 1 gram loading dose DDX: Large vessel atherosclerosis (thrombus), cardioembolic, small vessel (lacunar) disease, hypercoagulable state, arterial dissection, vasculitis, substance use Patient not a surgical candidate as presentation unremarkable, hematoma 10 mm or less, <5 mm midline shift Patient's risk factors for hematoma expansion: older age, hx HTN Patient's risk factors for poor prognosis: age >60, Plan: - serial neuro exam q4 hours for at least 24 hours. Monitor particularly for pupillary dilation, change in pupil response, bradycardia, respiratory depression, hypertension, AMS. - Urgent repeat CT head w/o if acute change in neuro exam / mental status - pending TTE - pending EEG - continue high intensity statin - continue keppra 500 mg BID x 1 month for seizure prophylaxis - avoid glucocorticoids #Insulin-dependent type 2 diabetes, uncontrolled #Hyperglycemia A1C 12.7 Initial glucose 438 Plan: - Management per primary #Hypertension Initial BP 155/74 Plan: - Management per primary #Normocytic normochromic anemia Subacute subdural hemorrhage, hx CKD Initial hgb 11.3, stable Iron 50 low, TIBC 280, iron saturation 17 low, unsaturated iron binding 230, ferritin 39 Plan: - Management per primary #NITIN on CKD, resolved Plan: - Management per primary Plan discussed with Dr. Angie Castellanos, PGY1 Attending Provider Attestation/Addendum I personally have seen and examined the patient at the bedside and i agreed with resident's findings, assessment and plan of care. iMP: Subacute SDH secondary to fall, no surgery indicated. Patient has afocal normal neuro exam. No complaints noted. FU with EEG Continue with Keppra for 1 month Consider doing a repeat CT head in 1-2 weeks to check on the SDH. Noted patient does not drive at baseline.
--- NOTE | 2024-11-11 14:39 | PC.SS ---
Addendum entered by Iraida Rock 11/11/24 15:46: SS follow up note; SS contacted patients son Lester in regards to patient's PCP follow up, he confirmed it was the foot Doctor. SS informed patient's sonLester that patient needs a Established PCP. SS informed him that SS will set up patient an appointment at the [facility] for patient to be followed. SS contacted [facility] and left Voicemail. SS also emailed [facility] to contact patient's son for appointment. SS will attempt to contact [facility] again at a later time. Original Note: Patient Heather Lau is a 69 Year old male admitted for Stroke/RO. SS attempted to meet with patient multiple times, however patient's nurse was in the room completing her assessment. SS contacted patient's son, Hill Lau and he reports patient lives at home with family. He reports he is patient's surrogate decision maker [phone]. Prior to admission he reports patient was able to complete ADL's independently independently. At home patient utilize a Rollator walker to assist with ambulation. Pharmacy of choice is [facility]. SS confirmed with patient's sonLester that patient was seen 2 weeks ago at [facility], however does not remember PCP's name. At the time family is still discussing with patient discharge plan, SS will meet with family and patient tomorrow in regards to discharge plan. SS was also contacted by Mariam ROSALES and informed SS if patient does not discharge to SNF, then he could discharge home with HH and will need Wheel chair. Discharge plan: Pending Next of kin: Son, Hill Lau
[2024-11-11] MEDS: RINGERS LACTATED 1000 ML 500 ML 150 ML IV (17:02)
[2024-11-11] MEDS: ATORVASTATIN CALCIUM 20 MG TABLET 40 MG PO (21:20)
[2024-11-11] MEDS: ASCORBIC ACID 250 MG TABLET 500 MG PO (21:20)
[2024-11-11] MEDS: INSULIN LISPRO (AdmeLOG) 1 UNIT/0.01 ML UNIT 4 UNIT SC (21:29)
[2024-11-11] MEDS: INSULIN GLARGINE (Lantus) 5 UNIT/0.05 ML (PER 5 UNITS) 10 UNIT SC (21:31)
[2024-11-12] VITALS: BP 140/79; PULSE 66; PULSE 72; RESP 19; TEMP 36.1; O2SAT 99
[2024-11-12 04:00] VITALS: BP 129/76; PULSE 72; RESP 18; TEMP 36.1; O2SAT 98
--- NOTE | 2024-11-12 05:52 | PD.RESPRO ---
Documentation for date of: 11/12/24 Exam Vital Signs Temp Pulse Resp BP Pulse Ox O2 Del Method 97.0 F 66 19 140/79 H 99 Room Air 11/12/24 00:00 11/12/24 00:00 11/12/24 00:00 11/12/24 00:00 11/12/24 00:00 11/12/24 00:00 Narrative Exam General: No acute distress, well nourished Eye: PERRL, EOMI, normal conjunctiva, no scleral icterus HENT: Normocephalic, atraumatic, hearing intact to conversation at normal volume, moist oral mucosa Neck: Supple, non-tender, no JVD, no lymphadenopathy Lungs: Non-labored respirations, symmetric chest rise Heart: Peripheral pulses intact bilaterally Abdomen: Soft, non-tender, non-distended Musculoskeletal: Normal range of motion and strength Skin: Skin is warm, dry, no rashes or lesions. Psychiatric: Cooperative, appropriate mood and affect Neurologic: Mental status: Orientation: AOx3 Communication: Patient is cooperative and can follow simple instructions Language: Speech fluent, normal rate and volume, comprehension intact Cranial nerves: CN II: Visual monge intact CN III: Pupils equal, round, and reactive to light CN III, IV, : No gaze deviation, no nystagmus Horizontal pursuit: intact Vertical pursuit: intact Ptosis: none CN V: Facial sensation to light touch intact bilaterally at the forehead, cheeks, and jaw line CN VII: Face symmetric, no facial droop appreciated CN VIII: Able to hear and respond to conversation at normal volume, intact to finger rub CN IX, X: Palate elevation symmetric, uvula midline CN XI: Head turn and shoulder shrug strong, symmetric bilaterally CN XII: Normal tongue protrusion without deviation, no fasciculations Motor: Normal bulk and tone No atrophy No abnormal movements or fasciculations Muscle strength: Shoulder abduction: R 5/5 L 5/5 Elbow flexion: R 5/5 L 5/5 Elbow extension: R 5/5 L 5/5 Hip flexion: R 5/5 L 5/5 Hip extension: R 5/5 L 5/5 Sensory: RUE: Light touch intact LUE: Light touch intact RLE: Light touch intact LLE: Light touch intact Reflexes: Biceps (C5-6): R 2+ L 2+ Brachioradialis (C5-6): R 2+ L 2+ Triceps (C7-8): R 2+ L 2+ Patellae (L3-4): R 2+ L 2+ Achilles (S1-2):R 2+ L 2+ No clonus Cerebellum: RUE: No dysmetria (finger to nose), no dysdiadochokinesia (rapid alternating movements) LUE: No dysmetria (finger to nose), no dysdiadochokinesia (rapid alternating movements) Objective Labs 11/12/24 07:52 11/12/24 07:52 Labs: Laboratory Results - last 24 hr 11/11/24 04:56 WBC 7.9 RBC 3.76 L Hgb 11.2 L Hct 33.3 L MCV 89 MCH 29.8 MCHC 33.6 RDW Std Deviation 42.3 Plt Count 237 Neut % (Auto) 62 Lymph % (Auto) 24 [place] % (Auto) 10 Eos % (Auto) 2 Baso % (Auto) 1 Neut # (Auto) 4.9 Lymph # (Auto) 1.9 [place] # (Auto) 0.8 Eos # (Auto) 0.2 Baso # (Auto) 0.1 Immature Gran # (Auto) 0.05 H Absolute Nucleated RBC 0.00 Immature Gran % 1 H Nucleated RBC % 0 Sodium 140 Potassium 4.1 Chloride 105 Carbon Dioxide 26.7 Anion Gap 8 BUN 19 Creatinine 1.3 Estim Creat Clear Calc 51.0 L eGFR 60 BUN/Creatinine Ratio 15 Glucose 264 H D Calculated Osmolality 290 Calcium 8.7 Corrected Calcium 8.9 Phosphorus 3.3 Magnesium 2.0 Iron 50 L TIBC 280 Iron Saturation 17 L Unsat Iron Binding 230 Ferritin 39 Total Bilirubin 0.2 L AST 13 ALT 8 L Alkaline Phosphatase 98 D Total Protein 6.9 Albumin 3.7 Globulin 3.2 Albumin/Globulin Ratio 1.2 Triglycerides 191 H Cholesterol 191 LDL Cholesterol, Calc 125 HDL Cholesterol 28 L Cholesterol/HDL Ratio 6.8 H Quality Measures Quality Measures none Assessment & Plan Assessment Current Active Medications: Generic Name Dose Route Start Last Admin Trade Name Freq PRN Reason Stop Dose Admin Acetaminophen 650 mg 11/10/24 23:24 Acetaminophen 325 Mg Tablet PO 12/10/24 23:23 Q6H PRN PAIN SCALE 1-3 (mild Ascorbic Acid 500 mg 11/11/24 21:00 11/11/24 21:20 Ascorbic Acid 250 Mg Tablet PO 12/11/24 20:59 500 mg BID YELITZA Administration Atorvastatin Calcium 40 mg 11/11/24 21:00 11/11/24 21:20 Atorvastatin Calcium 20 Mg Tablet PO 12/11/24 20:59 40 mg HS YELITZA Administration Dextrose 25 ml 11/10/24 23:24 Dextrose 50%-Water Inj 50 Ml Syringe IV 12/10/24 23:23 Q15MIN PRN BG 50-70 responsive npo pt Dextrose 50 ml 11/10/24 23:24 Dextrose 50%-Water Inj 50 Ml Syringe IV 12/10/24 23:23 Q15MIN PRN BG <50 OR BG <70 & pt unresponsive Glucagon 1 mg 11/10/24 23:24 Glucagon Inj 1 Mg Vial IM Q15MIN PRN BG <70, and no IV access Hydralazine HCl 10 mg 11/11/24 00:01 Hydralazine Inj 20 Mg/Ml Vial IVP 12/11/24 01:59 Q2HR PRN If BP >150/90 and HR <75 Insulin Glargine 10 unit 11/11/24 21:00 11/11/24 21:31 Insulin Glargine (Lantus) 5 Unit/0.05 Ml (Per 5 Units) SC 12/11/24 20:59 10 unit QPM YELITZA Administration Insulin Human Lispro 0 unit 11/11/24 21:00 11/11/24 21:30 Insulin Lispro (Admelog) 1 Unit/0.01 Ml Unit SC 12/11/24 20:59 5 unit ACHS YELITZA Administration Protocol Insulin Human Lispro 4 unit 11/11/24 21:00 11/11/24 21:29 Insulin Lispro (Admelog) 1 Unit/0.01 Ml Unit SC 12/11/24 20:59 4 unit ACHS YELITZA Administration Labetalol HCl 10 mg 11/11/24 00:02 Labetalol Inj 5 Mg/Ml Vial 20 Ml IVP Q15M PRN If BP >150/90 and HR >75 Levetiracetam 500 mg 11/11/24 21:00 11/11/24 21:20 Levetiracetam 250 Mg Tablet PO 12/11/24 20:59 500 mg BID YELITZA Administration Midazolam HCl 2 mg 11/11/24 00:38 Midazolam Inj 1 Mg/Ml Vial 2 Ml IM 11/16/24 00:37 Q30M PRN Breakthrough seizure Multivitamins 1 tab 11/12/24 09:00 Multivitamins Tablet PO 12/12/24 08:59 QDAY YELITZA Ondansetron HCl 4 mg 11/10/24 16:25 Ondansetron Inj 2 Mg/Ml Inj 2 Ml IVP 12/10/24 16:24 Q4HR PRN NAUSEA OR VOMITING Sennosides 1 tab 11/10/24 23:24 Senna Tablet PO 12/10/24 23:23 QDAY PRN constipation Protocol Zinc Sulfate 220 mg 11/12/24 09:00 Zinc Sulfate 220 Mg Capsule PO 11/26/24 08:59 QDAY YELITZA Plan 69-year-old male with past medical history of hypertension, poorly controlled insulin-dependent type 2 diabetes presenting to the ED on 11/10 for left-sided weakness, now resolved, (had fall 3 weeks ago), found to have small stable subdural hematoma peripheral to R fronto temporal parietal lobe. PT reccomend SNF however family prefers home with HH. #Subdural hematoma, subacute- STABLE Hx stroke: Right cerebellar infarct Hx afib: none Smoking hx: 1 PPD x 30 years Patient reports hx of seizure many years ago Initial symptoms: left-sided weakness Patient had a fall with head strike 3 weeks ago, did not seek medical attention LKAW: unknown Initial NIHSS: 1 (mild-moderate aphasia) Inital BP: 155/74 EKG: NSR HR 78, QTc 419 Initial glucose: 438 UDS: negative A1C: 12.7 Lipids: Triglyceride 191 high, cholesterol 191, LDL 125, HDL 28 low TSH: 6.43 high (04/2024) Free T4: 0.98 WNL (04/2024) Troponin: negative x1 CT head w/o 11/10: Subacute subdural hematoma peripheral to right frontotemporal parietal lobe 10 mm thick with mass effect on right lateral ventricle frontal horn with 3 mm shift to left. Tiny hyperdense areas within subdural hematoma c/f low-level acute bleed. Old infarct right cerebellar hemisphere. Repeat CT head w/o 11/11: Stable small subdural hematoma peripheral to right frontal temporal parietal lobe, 10 mm thick, 2 mm mass effect on right lateral ventricle frontal horn CTA head/neck w/: Negative for significant neck arterial stenosis, no LVO. Heavy calcification of right carotid bifurcation with 30% stenosis MRI/MRA w/ and w/o: Subdural hematoma peripheral to right cerebral hemisphere, 10 mm thick, mild mass effect upon ventricular system. No acute infarct. Moderate microvascular white matter changes. No significant carotid stenoses, no abnormal enhancing cerebellar or cerebral lesions. Small old infarct right cerebellar hemisphere. TTE: Meds given: Keppra 1 gram loading dose DDX: Large vessel atherosclerosis (thrombus), cardioembolic, small vessel (lacunar) disease, hypercoagulable state, arterial dissection, vasculitis, substance use Patient not a surgical candidate as presentation unremarkable, hematoma 10 mm or less, <5 mm midline shift Patient's risk factors for hematoma expansion: older age, hx HTN Patient's risk factors for poor prognosis: age >60 Plan: - serial neuro exam q4 hours for at least 24 hours. Monitor particularly for pupillary dilation, change in pupil response, bradycardia, respiratory depression, hypertension, AMS. - Urgent repeat CT head w/o if acute change in neuro exam / mental status - pending TTE - pending EEG - continue atrovastatin 40 mg daily - continue keppra 500 mg BID x 1 month for seizure prophylaxis - avoid glucocorticoids, anticoagulants, antiplatelets - allow for blood pressure to be less than 150/90 with as needed antihypertensive (labetalol or hydralazine) - head of bed greater than 30 - aspiration precautions - PT rec SNF, however family prefers home with Home Health - F/U outpatient neurology #HFrEF TTE: Negative bubble study, LVEF 35-40%, grade 1 diastolic dysfunction Plan: - Start Lasix 20 mg QD - Start Losartan 50 mg QD - F/U with PCP outpatient - can start beta susan if BP permits - Outpatient cardiology w/u for ischemic heart disease #Seizure prophylaxis 2/2 subdural hematoma Patient reports 1 convulsive seizure in the past, many years ago, unkonwn cause, unknown if ASD prescribed Patient does not drive Loading dose of Keppra was given Plan: - Neuro consulted, appreciate recs. - Continue Keppra 500 mg PO BID - EEG pending - Seizure precautions - 2 mg IV midazolam as needed for breakthrough seizure #NITIN on CKD- Resolved Patient presenting with increasing creatinine from baseline Cr, back at baseline 1.3 Plan: - Continue gentle IV fluid resuscitation - Avoid renally toxic medications - Renally dose medications - Monitor with morning labs #Insulin-dependent type 2 diabetes- poorly controlled A1C 12.7 Initial glucose 438 Holding home metformin 500 BID Plan: - Step 2 SSI - ACHS - 20 units Long acting insulin - 5 units short acting insulin with meals #Hypertension History of hypertension with home antihypertensive Currently goal is to keep blood pressure less than 150/90 as per teleneurology Initial BP 155/74 Plan: - as above #Normocytic normochromic anemia Subacute subdural hemorrhage, hx CKD Initial hgb 11.3, stable Iron 50 low, TIBC 280, iron saturation 17 low, unsaturated iron binding 230, ferritin 39 Patient has chronic anemia noted per chart Plan: - Monitor with daily CBC #Hyperlipidemia triglycerides 191 - continue atorvastatin 40 mg QD Health Maintenance: DIspo: Pending TTE, EEG Lines: PIV Diet: Regular Full diet Bowel: Senna as needed GI prophylaxis: Not needed DVT prophylaxis: SCD Dispo: Stroke rule out with MRI, teleneurology consultation with EEG for seizures, PT rec SNF but family prefer home with HH. Code: Full Plan discussed with Nadira Castellanos, PGY1
[2024-11-12 05:57] VITALS: BMI 29.0
--- NOTE | 2024-11-12 07:07 | PC.NURSE ---
patient refused morning labs, he said he would get labs drawn when he is awake after 7
[2024-11-12] MEDS: INSULIN LISPRO (AdmeLOG) 1 UNIT/0.01 ML UNIT 4 UNIT SC ×2 (07:43→11:46)
[2024-11-12] MEDS: INSULIN LISPRO (AdmeLOG) 1 UNIT/0.01 ML UNIT SC ×2 (07:43→11:45)
[2024-11-12 08:00] VITALS: BP 136/76; PULSE 78; PULSE 90; RESP 17; TEMP 36.3; O2SAT 97
[2024-11-12 08:13] LABS: Basophils # (Auto) 0.1 Thou/mm3 (0.0-0.2); Basophils % (Auto) 1 % (0-2.5); Eosinophils # (Auto) 0.2 Thou/mm3 (0.0-0.5); Eosinophils % (Auto) 2 % (0-10); Hematocrit 34.5 % (41.0-53.0); Hemoglobin 11.4 g/dL (13.5-16.0); Immature Granulocytes Auto 0.04 Thou/mm3 (0.00-0.00); Immature Reticulocyte Fraction 16.8 % (2.3-13.4); Lymphocytes # (Auto) 1.6 Thou/mm3 (1.0-4.8); Lymphocytes % (Auto) 18 % (10-50); Mean Corpuscular HGB Conc 33.0 g/dl (31.0-37.0); Mean Corpuscular Hemoglobin 29.6 pg (25.0-35.0); Mean Corpuscular Volume 90 fL (80-100); Monocytes # (Auto) 0.8 Thou/mm3 (0.0-0.8); Monocytes % (Auto) 9 % (0-12); Neutrophils # (Auto) 6.3 Thou/mm3 (1.8-7.7); Neutrophils % (Auto) 70 % (37-80); Nucleated Red Blood Cell # 0.00 Thou/mm3 (0.00-0.00); Nucleated Red Blood Cell % 0 /100 WBC (0); Platelet Count 253 Thou/mm3 (140-440); RDW Standard Deviation 43.0 fL (35.1-43.9); Red Blood Count 3.85 Miln/mm3 (4.50-5.90); Reticulocyte % (Auto) 1.7 % (0.5-1.5); Reticulocyte Absolute Auto 67.0 Biln/L (25.0-75.0); Reticulocyte Hgb Content 33.1 pg (28.0-35.0); White Blood Count 9.0 Thou/mm3 (3.8-10.6)
[2024-11-12 08:35] LABS: Alanine Aminotransferase 8 U/L (10-49); Albumin, Serum 3.7 gm/dL (3.4-4.8); Albumin/Globulin Ratio 1.1 (1.2-2.2); Alkaline Phosphatase 93 U/L (46-116); Anion Gap 9 (7-16); Aspartate Amino Transferase 13 U/L (0-34); BUN/Creatinine Ratio 16 Ratio (12-20); Bilirubin,Total 0.3 mg/dL (0.3-1.2); Blood Urea Nitrogen 21 mg/dL (9-23); Calcium 8.5 mg/dL (8.3-10.6); Calcium (Corrected) 8.7 mg/dL (8.5-10.1); Carbon Dioxide 26.9 mMol/L (20.0-31.0); Chloride 103 mMol/L (98-107); Creatinine (Component) 1.3 mg/dL (0.6-1.3); Estimated Creatinine Clearance 51.0 mL/min (>60); Globulin 3.3 gm/dL (2.3-3.5); Glucose 245 mg/dL (74-106); Magnesium 1.7 mg/dL (1.6-2.6); Osmolality,Calculated 288 (275-295); Phosphorous 3.6 mg/dL (2.4-5.1); Potassium 4.5 mMol/L (3.4-5.1); Sodium 139 mMol/L (136-145); Total Protein 7.0 gm/dL (5.7-8.2); eGFR 60 See Note
--- NOTE | 2024-11-12 09:09 | PC.SS ---
Addendum entered by Iraida Rock 11/12/24 13:46: SS follow up note; SS set up transportation with [employer] services for 6:15pm. SS notified patient's nurse, Monica and patient's , Elidia. SS also contacted [facility] and updated Katie and informed her that patient will be following up with first dialysis session on FridayOctober 16. Per Team A Dr. Garza agreeable to have patient discharge today and follow up with dialysis on Friday. Addendum entered by Iraida Rock 11/12/24 13:33: SS follow up note; SS attempted to contact [facility] multiple times, SS sent email out as well. Patient will not be able to be followed by HH agency due to not having PCP. SS Met with with patient at bedside to discuss discharge plan, patient is adamant that he will not discharge to SNF. SS informed patient that he will not be able to be followed by a HH agency because he is not established with PCP. Patient verbalized understanding. SS was informed by Mariam from PT that patient will need Wheelchair upon discharge. SS will sent DME inquiry for wheel chair through [employer]. Original Note: SS rounding note; Patient is pending echo and EEG. SS will follow up with discharge plan.
[2024-11-12] MEDS: MULTIVITAMINS TABLET 1 TAB PO (09:22)
[2024-11-12] MEDS: ASCORBIC ACID 250 MG TABLET 500 MG PO (09:22)
[2024-11-12] MEDS: ZINC SULFATE 220 MG CAPSULE PO (09:22)
[2024-11-12 12:00] VITALS: BP 117/69; PULSE 77; PULSE 79; RESP 19; TEMP 36.3; O2SAT 96
--- NOTE | 2024-11-12 13:19 | ESDS_ITS ---
<Statement entered by Elder Levine MD - 11/15/24 16:11> I reviewed above note and agree with findings and plans. I have also personally examined the patient with medicine team and went over assessment and plan with medical team including nutrition intern and resident physician. <Statement entered by Jem Elizabeth MD - 11/12/24 18:30> Patient was examined and case was reviewed with team including attending physician. Note reviewed, I agree with most of its contents and agree with the patient's care. Jem Elizabeth MD PGY-2 Planned Discharge Date 11/12/24 DS: Providers Provider Date of admission: 11/10/24 23:25 Primary care physician: Physician No Primary/Family Admitting Provider: Max Stauffer MD Attending Provider on Admission: Elder Levine MD Consults: 11/10/24 16:25 Consult to Neurology / Tele-Neurology Routine Comment: Consulting Provider: [facility] 11/10/24 16:54 Referral - Equipment Validation Specialist Stat Service Needed for Transfer: Neurosurgery Addl Comments:: CVA, acute subdural hematoma 11/10/24 23:27 Referral Physical Therapy Routine Comment: Physician Instructions: Referral Speech Therapy Routine Comment: 11/11/24 08:17 Consult to Neurology / Tele-Neurology Routine Comment: subdural, s/p fall Consulting Provider: Jordan Adams 11/11/24 09:38 Referral Wound Care Routine Comment: 11/11/24 10:39 Referral OP Wound Healing Dept Routine Comment: DM ulcers bilateral feet 11/11/24 10:40 Referral Nutritional Services Routine Comment: Wounds 11/11/24 11:05 Referral Victor M Routine Comment: Referral Physical Therapy Routine Comment: Physician Instructions: Referral Respiratory Therapy Routine Comment: Attending Provider on DC: Dr. Levine Discharging Provider: Dr. Levine DS: Diagnosis Problem List Completed Was Problem List Reviewed/Reconciled?: Yes Hospital Course Hospital Course Hospital course: Hospital Course Mr. Cordova is a 69 y/o male with PMH HTN, uncontrolled insulin-dependent type 2 diabetes who presented to the ED on 11/10 for left-sided weakness that has since resolved. Patient had a fall with headstrike about 3 weeks ago without seeking medical attention. NIHSS 1. Initial glucose 438 with A1C 12.7, held home metformin and started on sliding scale insulin step [address] head showed subacute subdural hematoma with small areas of acute bleeding within the larger subdural hematoma, mass effect on anterior horn of right lateral ventricle. CTA negative. EKG unremarkable. Given Keppra loading dose and started maintenance Keppra 500 mg BID. No surgical intervention required given presentation, hematoma width <10 mm, and <5 mm mass effect. Repeat CT head showed stable subdural hematoma. MRI/MRA w/ and w/o showed no acute infarct. Patient continued on atorvastatin 40 mg daily. TTE showed negative bubble study, LVEF 35-40% with grade 1 diastolic dysfunction. Started on Lasix 20 mg daily, losartan 50 mg daily. Patient was counseled on following up outpatient with neurology, cardiology for ischemic heart failure workup, and PCP for diabetes and hypertension management. Patient stable and medically cleared for discharge. Hospital Course Patient stable and medically cleared for discharge. Diagnoses #Subdural hematoma, subacute - STABLE #HFrEFwith LVEF 35-40% #NITIN on CKD- Resolved #Insulin-dependent type 2 diabetes- poorly controlled #Hypertension #Normocytic normochromic anemia - chronic, stable #Hyperlipidemia Discharge Instructions 1) Return to [facility] as scheduled. Call [phone] to reschedule as needed. 2) Wound care to left and right foot as directed by Wound Clinic with calcium alginate with silver and foam dressings. 3) You have been started on Lasix and losartan as part of your goal directed medical therapy for heart failure. 4) Please follow up with your PCP and request Cardiology follow up for work up of ischemic heart disease. 5) You have been prescribed keppra for your seizure prophylaxis please follow up with Neurology with regards to monitoring your seizures as well as results of your EEG. 6) Should your symptoms recur or worsen patient is instructed to return to the ED. Time Spent with Patient Time attestation: Total time spent providing and/or coordinating discharge services: Time spent: Greater than 30 minutes Quality: Stroke Pt Provided Written Stroke Discharge Instructions: No Home Health Home Health Referral Orders: 11/11/24 15:05 Home Health Referral Routine Reason For Exam: PT Home-Bound The patient must either because of illness or injury, need the aid of supportive devices such as crutches, canes, wheelchairs, and walkers; the use of special transportation; or the assistance of another person in order to leave their place of residence; OR have a condition such that leaving his or her home is medically contraindicated. In addition, the patient also meets the following criteria: patient is normally unable to leave the home and leaving home requires considerable taxing effort. Addendum to Home Health Certification Practitioner's Certification: I certify that the patient has been under my care in the hospital and the care of attending physician (see below). We had a [id number] encounter on (see date below). My clinical findings indicate that the patient is home bound per the above criteria and the Home Health Services noted in these orders are medically necessary. The primary reason for the [id number] encounter is related to the fact that the patient requires home health services. Date Certifying Raov-un-Aygs Physician Encounter: 11/11/24 Physician's Name who will Assume Oversight for HH Services: Physician No Primary/Family HAND SANDER - Community Resources: No PT to Evaluate: Yes PT to evaluate and provide a treatmnet plan to increase patient's mobility and strength. Wound Care: No IV Therapy: No RN Safety Evaluation: Yes RN to evaluate and create a plan of care that will produce positive outcomes. Palliative Treatment: No Palliative treatment and evaluate the need for hospice. Home Health Aide - Personal Care: No Home Health Aide to assist with any ADL's. Exam Vital Signs Temp Pulse Resp BP Pulse Ox O2 Del Method 97.3 F 90 17 136/76 H 97 Room Air 11/12/24 08:00 11/12/24 08:00 11/12/24 08:00 11/12/24 08:00 11/12/24 08:00 11/12/24 08:00 Narrative Exam General: No acute distress, well nourished Eye: PERRL, EOMI, normal conjunctiva, no scleral icterus HENT: Normocephalic, atraumatic, hearing intact to conversation at normal volume, moist oral mucosa Neck: Supple, non-tender, no JVD, no lymphadenopathy Lungs: Non-labored respirations, symmetric chest rise Heart: Peripheral pulses intact bilaterally Abdomen: Soft, non-tender, non-distended Musculoskeletal: Normal range of motion and strength Skin: Skin is warm, dry, no rashes or lesions. Psychiatric: Cooperative, appropriate mood and affect Neurologic: Mental status: Orientation: AOx3 Communication: Patient is cooperative and can follow simple instructions Language: Speech fluent, normal rate and volume, comprehension intact Cranial nerves: CN II: Visual monge intact CN III: Pupils equal, round, and reactive to light CN III, IV, : No gaze deviation, no nystagmus Horizontal pursuit: intact Vertical pursuit: intact Ptosis: none CN V: Facial sensation to light touch intact bilaterally at the forehead, cheeks, and jaw line CN VII: Face symmetric, no facial droop appreciated CN VIII: Able to hear and respond to conversation at normal volume, intact to fi nger rub CN IX, X: Palate elevation symmetric, uvula midline CN XI: Head turn and shoulder shrug strong, symmetric bilaterally CN XII: Normal tongue protrusion without deviation, no fasciculations Motor: Normal bulk and tone No atrophy No abnormal movements or fasciculations Muscle strength: Shoulder abduction: R 5/5 L 5/5 Elbow flexion: R 5/5 L 5/5 Elbow extension: R 5/5 L 5/5 Hip flexion: R 5/5 L 5/5 Hip extension: R 5/5 L 5/5 Sensory: RUE: Light touch intact LUE: Light touch intact RLE: Light touch intact LLE: Light touch intact Reflexes: Biceps (C5-6): R 2+ L 2+ Brachioradialis (C5-6): R 2+ L 2+ Triceps (C7-8): R 2+ L 2+ Patellae (L3-4): R 2+ L 2+ Achilles (S1-2):R 2+ L 2+ No clonus Cerebellum: RUE: No dysmetria (finger to nose), no dysdiadochokinesia (rapid alternating movements) LUE: No dysmetria (finger to nose), no dysdiadochokinesia (rapid alternating movements) Discharge Plan Problem List Was Problem List Reviewed/Reconciled?: Yes Plan Care Plan Goals: 1) Return to [facility] as scheduled. Call [phone] to reschedule as needed. 2) Wound care to left and right foot as directed by Wound Clinic with calcium alginate with silver and foam dressings. 3) You have been started on Lasix and losartan as part of your goal directed medical therapy for heart failure. 4) Please follow up with your PCP and request Cardiology follow up for work up of ischemic heart disease. 5) You have been prescribed keppra for your seizure prophylaxis please follow up with Neurology with regards to monitoring your seizures as well as results of your EEG. 6) Should your symptoms recur or worsen patient is instructed to return to the ED. Prescriptions/Referrals Prescriptions/Med Rec: New levetiracetam [Keppra] 500 mg tablet 500 mg PO BID Qty: 30 0RF furosemide [Lasix] 20 mg tablet 20 mg PO QAM Qty: 30 0RF losartan 50 mg tablet 50 mg PO QDAY Qty: 30 0RF Continued (DME) FreeStyle Anh 3 Plus Sensor Device See Rx Instructions .Route Qty: 1 0RF Rx Instructions: As directed (DME) insulin syringe-needle U-100 [Ultra-Thin II Insulin Syringe] 1 mL 29 gauge x 1/2 syringe See Rx Instructions .Route Qty: 100 0RF Rx Instructions: As directed metformin 500 mg tablet 500 mg PO BID Qty: 30 0RF insulin glargine 100 unit/mL (3 mL) insulin pen 20 unit subcut QDAY Qty: 15 0RF Discontinued captopril 25 MG tablet 25 mg PO QDAY Qty: 0 Referrals: No Primary/Family,Physician [Primary Care Provider] - Patient/Caregiver Discharge Instructions Education Materials: Nutrition for Wound Healing, Discharge Instructions for Stroke, Wound Care Dc, Your Diabetes Foot Care Program, Foot Care Diabetes Steps Print Language: Urdu Discharge Order Discharge Orders: Discharge (Routine); Ordered 11/12/24 Ordered By: Jem Elizabeth Quality Discharge Quality Measures VTE prophylaxis Attestestation MD Attestation Case discussed with Dr. Larson and Dr. Levine. Nadira Castellanos, PGY1
--- NOTE | 2024-11-12 13:47 | PC.SS ---
SS follow up note; SS attempted to contact [facility] multiple times, SS sent email out as well. Patient will not be able to be followed by HH agency due to not having PCP. SS Met with with patient at bedside to discuss discharge plan, patient is adamant that he will not discharge to SNF. SS informed patient that he will not be able to be followed by a HH agency because he is not established with PCP. Patient verbalized understanding. SS was informed by Mariam from PT that patient will need Wheelchair upon discharge. SS will sent DME inquiry for wheel chair through [employer]. SS rounding note; Patient is pending echo and EEG. SS will follow up with discharge plan.
--- NOTE | 2024-11-12 13:52 | PC.SS ---
WheelChairs Patients diagnosis creates mobility limitations that significantly impairs ability to participate in the patient?s activities of daily living either in their entirety, or in a reasonable time frame in the home and the patient?s mobility limitations cannot be sufficiently resolved with an appropriately fitted cane or walker. Also the use of a manual wheelchair will sufficiently improve patient?s ability to participate in the activities of daily living in the home and the patient is willing to use the wheelchair that is provided in the home. The patient has some one in the home that is available, willing and able to provide assistance with the wheelchair.
--- NOTE | 2024-11-12 13:58 | PC.SS ---
SS follow up note; SS contacted [facility] and they scheduled patient an appointment for FridayNov 15 ath 9AM. SS will provide information to patient and patients son.
[2024-11-12 16:00] VITALS: BP 137/77; PULSE 73; PULSE 79; RESP 18; TEMP 36.4; O2SAT 97
--- NOTE | 2024-11-13 09:41 | PC.CM ---
Addendum entered by Robert Hernandez RN 11/13/24 10:48: Referred to [facility] health, start of care within 48 hrs from discharge. Original Note: Referrals for home health sent out via [employer], pending responses at this time.
--- NOTE | 2024-11-19 18:05 | EEG_ITS ---
EEG Report EEG Interpretation Date/time of EE11/19/24 [facility] Routine EEG Report Video Performed: Performed Demographics:Patient Name:???Heather Weeks Date of :???[id number] Identification Number:??? Study Times: Study Start Time:???11/19/2024 16:11:00 Study End Time:???11/19/2024 16:32:00 Duration:???21?minutes Indication(s):Encephalopathy Technical Summary: This EEG was performed utilizing standard International 10-20 System of electrode placement. One channel electrocardiogram was monitored. Data were obtained and interpreted utilizing referential montage recording, with reformatting to longitudinal, transverse bipolar, and referential montages as necessary for interpretation. State(s): ?Drowsy ?Asleep EKG:?Single Lead EKG was Regular Activation Procedures: Hyperventilation:?Not performedPhotic Stimulation:?Performed : No Photic Driving EEG Description: During wakefulness, the background showed a continuous posterior dominant alpha rhythm which was fairly modulated, symmetrical and reactive to eye opening. ?Photic stimulation did not provoke any abnormal response. ?Drowsiness demonstrated a background attenuation. ?Sleep stage II showed a symmetrical appearance of sleep spindles and vertex waves. ?There was no clinical event or button-pushed event noted. ?Throughout the record, there was no epileptiform abnormality or lateralizing sign observed. ?Intermittent electrode and movement artifacts were noted. ? ? Impression: This is a normal awake, drowsy and sleep EEG. No epileptiform abnormality or lateralizing sign is observed. ?Note that an absence of epileptiform abnormality does not exclude a diagnosis of epilepsy. Dr Jacqueline Stevenson It is not live continuous monitoring by [facility]. [facility] For Inpatient follow-up with [facility] physician please call [facility] at . As we are not an outpatient service for any post hospital discharge needs please contact the hospital for assistance. If you have any questions for the [facility] physicians or need to reconsult for clinical or diagnostic changes please contact us via [facility] at . Signature :Genet Stevenson
== END 2024-11-12 17:10 | disposition home health service (06) | DRG 83 ==
LOC: SERX 22:48 → SERHOLD 23:33 → S2NX 11-11 06:31
PROVIDERS: Nurse Practitioner Family; Admitting Provider Internal Medicine; Emergency Provider Emergency Medicine; Visit Provider Internal Medicine
DX: S06.5XAA Traumatic subdural hemorrhage with loss of consciousness status unknown, initial encounter (principal); I13.0 Hypertensive heart and chronic kidney disease with heart failure and stage 1 through stage 4 chronic kidney disease, or unspecified chronic kidney disease; N17.9 Acute kidney failure, unspecified; I50.20 Unspecified systolic (congestive) heart failure; M86.8X7 Other osteomyelitis, ankle and foot; Z79.4 Long term (current) use of insulin; W19.XXXA Unspecified fall, initial encounter; F17.210 Nicotine dependence, cigarettes, uncomplicated; N18.9 Chronic kidney disease, unspecified; E11.22 Type 2 diabetes mellitus with diabetic chronic kidney disease; R53.1 Weakness; E11.69 Type 2 diabetes mellitus with other specified complication; D63.1 Anemia in chronic kidney disease; E78.5 Hyperlipidemia, unspecified; E11.65 Type 2 diabetes mellitus with hyperglycemia; E11.621 Type 2 diabetes mellitus with foot ulcer; Z79.84 Long term (current) use of oral hypoglycemic drugs; Z79.899 Other long term (current) drug therapy; R56.9 Unspecified convulsions
CPT/HCPCS: 36415; 70450; 70496; 70498; 70553; 71045; 80053; 80061; 80307; 81001; 82728; 83036; 83540; 83550; 83735; 84100; 84484; 85025; 85046; 85610; 85730; 87077; 87086; 87186; 92610; 93005; 93306; 95816; 96365; 96366; 96375; 96376; 97162; 99284; A4649; A9577; J1815; J1953; J3475; J3490; J7120; Q9967; A9270; J1920

== ENCOUNTER → 2024-11-29 | Outpatient (CLI) | payer OTHER, SELFPAY | END | disposition home or self-care (01) | PROVIDERS: PCP Nurse Anesthetist, Certified Registered; Referring Provider Nurse Anesthetist, Certified Registered; Visit Provider Student in an Organized Health Care Education/Training Program | DX: L97.412 Non-pressure chronic ulcer of right heel and midfoot with fat layer exposed (principal); L97.522 Non-pressure chronic ulcer of other part of left foot with fat layer exposed; S91.302A Unspecified open wound, left foot, initial encounter; X58.XXXA Exposure to other specified factors, initial encounter; E11.40 Type 2 diabetes mellitus with diabetic neuropathy, unspecified; I25.10 Atherosclerotic heart disease of native coronary artery without angina pectoris; Z91.199 Patient's noncompliance with other medical treatment and regimen due to unspecified reason; I10 Essential (primary) hypertension | CPT/HCPCS: 97597; 11042; A9270 ==

== ENCOUNTER 2025-02-23 14:56 | Emergency (ER) | payer MEDICARE, SELFPAY ==
[2025-02-23 14:57] VITALS: BMI 31.8
[2025-02-23 15:28] VITALS: BP 98/54; PULSE 91; RESP 18; TEMP 36.8; O2SAT 96
--- NOTE | 2025-02-23 15:33 | PD.EDWOUND ---
ED Wound/Laceration-RME/HPI General Chief Complaint: Wound Recheck / Suture Removal Stated Complaint: R DIABETIC WOUND X2 YEARS Time Seen by Provider: 02/23/25 15:05 Arrival date/time: 02/23/25 14:56 69-year-old male presents to the emergency department today with son for the send patient has diabetic foot ulcers ongoing x 2 years. Patient where she does have follow-up on Friday with wound care center but was under the impression that perhaps they could do wound debridement here in the emergency department. Currently patient is on antibiotics Limitations: no limitations Related Data Previous Rx's ?Medication ?Instructions ?Recorded blood-glucose sensor (FreeStyle #1 ea 04/19/24 Anh 3 Plus Sensor device) insulin glargine 100 unit/mL (3 20 unit (0.2 mL) subcut QDAY #15 mL 04/19/24 mL) subcutaneous pen insulin syringe-needle U-100 1 mL #100 ea 04/19/24 29 gauge x 1/2 (Ultra-Thin II Insulin Syringe) metformin 500 mg tablet 500 mg PO BID #30 tabs 04/19/24 furosemide 20 mg tablet (Lasix) 20 mg PO QAM #30 tabs 11/12/24 levetiracetam 500 mg tablet 500 mg PO BID #30 tabs 11/12/24 (Keppra) losartan 50 mg tablet 50 mg PO QDAY #30 tabs 11/12/24 Allergies Allergy/AdvReac Type Severity Reaction Status Date / Time No Known Allergies Allergy Verified 02/23/25 15:00 Review of Systems Review of Systems Systems Reviewed: All systems reviewed, normal except as documented Constitutional Constitutional: Reports system reviewed and no additional complaints, except as documented, Denies fever(s) and Denies headache(s) Eyes Eyes: Reports system reviewed and no additional complaints, except as documented and Denies blurry vision ENT Ears, Nose, Mouth, and Throat: Reports system reviewed and no additional complaints, except as documented, Denies headache(s), Denies nasal congestion and Denies nasal discharge Cardiovascular Cardiovascular: Reports system reviewed and no additional complaints, except as documented, Denies chest pain and Denies dyspnea Respiratory Respiratory: Reports system reviewed and no additional complaints, except as documented, Denies chest congestion, Denies cough and Denies dyspnea Gastrointestinal Gastrointestinal: Reports system reviewed and no additional complaints, except as documented and Denies abdominal pain Integumentary/Breasts Skin/Breast: Reports system reviewed and no additional complaints, except as documented, Denies rash and Reports wounds (Bilateral foot wounds plantar aspect diabetic foot ulcer) Neurologic Neurologic: Reports system reviewed and no additional complaints, except as documented, Reports as per HPI and Denies headache(s) Past Medical History Past Medical History NEUROLOGIC: Positive Neurological Disorders and Cerebrovascular Accident (2020 x2 no deficits) CARDIAC: Positive Cardiac Disorders and Hypertension; Negative Congestive Heart Failure RESPIRATORY: Negative Chronic Obstructive Pulmonary Disease (COPD) GASTROINTESTINAL: Negative Gastrointestinal Disorders GENITOURINARY: Positive Genitourinary Disorders and Benign Prostatic Hyperplasia; Negative Renal Disease MUSCULOSKELETAL: Negative Musculoskeletal Disorders ENDOCRINE: Positive Diabetes Mellitus Type 2; Negative Diabetes Mellitus Type 1 HEMATOLOGIC: Negative Blood Disorders OTHER HISTORY: Negative Blood Transfusions, Blood Transfusion Reaction or Cancer Surgical History SURGICAL: Positive Amputation (left foot 4th and 5th digit amputated) Social History SMOKING STATUS: Never smoker SUBSTANCE USE: does not use ED Exam General Limitations: Present no limitations General appearance: Present alert and in no apparent distress Head Head exam: Present atraumatic, normocephalic and normal inspection Eye Eye exam: Present normal appearance, PERRL and EOMI ENT ENT exam: Present normal exam, normal oropharynx and mucous membranes moist Neck Neck exam: Present normal inspection, full ROM and trachea midline Chest Chest inspection: Present normal inspection and symmetric chest wall rise Respiratory Respiratory exam: Present normal lung sounds bilaterally Cardiovascular Cardiovascular exam: Present regular rate, normal rhythm and normal heart sounds Abdominal Exam Abdominal exam: Present soft and normal bowel sounds Extremities Exam Extremities exam: Present normal inspection and full ROM Back Exam Back exam: Present normal inspection and full ROM Neurological Exam Neurological exam: Present alert, oriented X3 and CN II-XII intact Psychiatric Psychiatric exam: Present normal affect and normal mood Skin Skin exam: Present warm, dry and other (Bilateral foot wounds plantar aspect diabetic foot ulcer) Course Quality Measures none Vital Signs Vital signs: Vital Signs Temperature 98.2 F 02/23/25 15:28 Pulse Rate 91 02/23/25 15:28 Respiratory Rate 18 02/23/25 15:28 Blood Pressure 98/54 L 02/23/25 15:28 Pulse Oximetry (%) 96 02/23/25 15:28 Oxygen Delivery Method Room Air 02/23/25 15:28 O2 saturation 96% room air within normal limits Wound / Laceration MDM Narrative MDM Narrative:: 69-year-old male presents to the emergency department today with son for the send patient has diabetic foot ulcers ongoing x 2 years. Patient where she does have follow-up on Friday with wound care center but was under the impression that perhaps they could do wound debridement here in the emergency department. Currently patient is on antibiotics Explained to the patient we do not debride wounds in the ER Did offer to do lab work and imaging patient declined as well as the son He reports he will follow-up on Friday at the wound care clinic New dressings applied patient given supplies for the house until Friday For emergent concerns instructed to return for reevaluation. Patient data External records reviewed:: [facility] previous records Clinical information provided by:: patient Social determinants that could affect healthcare access:: none Patient has the following chronic illnesses:: Diabetes How is presenting disease/condition affected by chronic disease/condition?: caused by Evaluation data The following diagnostics were reviewed and interpreted by me:: other (specify) Lab and/or radiology exams considered but not ordered:: N/A Interpretation Summary: N/A Medications / Prescriptions Medications or Prescriptions considered but not ordered:: No med Medication administrations:: No med Consultations Consultation(s) initiated? (list below): No Diagnosis Wound Differential Diagnosis: laceration, abrasion and avulsion of skin Most likely diagnosis given after review of the tests above:: Chronic foot ulcers Admission Indicated Admission indicated?: not indicated Admission Request Was there a request for admission?: No Disposition Plan Disposition Plan: Discharge Discharge Attestation Discharge Attestation: The patient and all family members were given an opportunity to ask questions and understood the discharge instructions. Discharge instructions specifically effects, indications for sooner follow up or return to the emergency department, and the expected course of current diagnosis. Patient condition: Stable Discharge Plan Plan Patient Disposition: HOME (Self Care) Discharge Disposition comment: Stable Prescriptions/Referrals Prescriptions/Med Rec: No Action (DME) FreeStyle Anh 3 Plus Sensor Device See Rx Instructions .Route Qty: 1 0RF Rx Instructions: As directed (DME) insulin syringe-needle U-100 [Ultra-Thin II Insulin Syringe] 1 mL 29 gauge x 1/2 syringe See Rx Instructions .Route Qty: 100 0RF Rx Instructions: As directed metformin 500 mg tablet 500 mg PO BID Qty: 30 0RF insulin glargine 100 unit/mL (3 mL) insulin pen 20 unit subcut QDAY Qty: 15 0RF levetiracetam [Keppra] 500 mg tablet 500 mg PO BID Qty: 30 0RF furosemide [Lasix] 20 mg tablet 20 mg PO QAM Qty: 30 0RF losartan 50 mg tablet 50 mg PO QDAY Qty: 30 0RF Problem List Clinical Impression: Chronic wound of extremity, Diabetic foot ulcers Patient/Caregiver Discharge Instructions Education Materials: ED Diet: Diabetes Additional Instructions: Please keep your appointment at the wound care center on Friday for worsening symptoms or concerns return immediately Print Language: Sinhala Stand Alone Forms: Jeanette Award Info., Patient Portal Info Letter PA/FOOD PRODUCTION ASSOCIATE Supervising Physician PA/FOOD PRODUCTION ASSOCIATE Supervising Physician: Dr. porter
== END 2025-02-23 16:20 | disposition home or self-care (01) ==
LOC: SERX 15:53
PROVIDERS: Emergency Provider Family Medicine
DX: E11.621 Type 2 diabetes mellitus with foot ulcer (principal); L97.529 Non-pressure chronic ulcer of other part of left foot with unspecified severity; L97.519 Non-pressure chronic ulcer of other part of right foot with unspecified severity; Z79.4 Long term (current) use of insulin; Z79.84 Long term (current) use of oral hypoglycemic drugs
CPT/HCPCS: 99281

== ENCOUNTER → 2025-02-28 | Outpatient (CLI) | payer MEDICARE, SELFPAY | END | disposition home or self-care (01) | LOC: SWHD 11:18 | PROVIDERS: PCP Nurse Practitioner Family; Referring Provider Nurse Practitioner Family; Visit Provider Student in an Organized Health Care Education/Training Program | DX: E11.621 Type 2 diabetes mellitus with foot ulcer (principal); L97.422 Non-pressure chronic ulcer of left heel and midfoot with fat layer exposed; L97.412 Non-pressure chronic ulcer of right heel and midfoot with fat layer exposed; S91.301A Unspecified open wound, right foot, initial encounter; X58.XXXA Exposure to other specified factors, initial encounter; E11.40 Type 2 diabetes mellitus with diabetic neuropathy, unspecified; I25.10 Atherosclerotic heart disease of native coronary artery without angina pectoris; Z79.4 Long term (current) use of insulin; Z89.422 Acquired absence of other left toe(s); I73.9 Peripheral vascular disease, unspecified | CPT/HCPCS: 97597; 99213; A9270; G0463 ==

== ENCOUNTER → 2025-03-14 | Outpatient (CLI) | payer OTHER, SELFPAY | END | disposition home or self-care (01) | PROVIDERS: PCP Nurse Anesthetist, Certified Registered; Referring Provider Nurse Anesthetist, Certified Registered; Visit Provider Student in an Organized Health Care Education/Training Program | DX: E11.621 Type 2 diabetes mellitus with foot ulcer (principal); L97.422 Non-pressure chronic ulcer of left heel and midfoot with fat layer exposed; L97.412 Non-pressure chronic ulcer of right heel and midfoot with fat layer exposed; S91.301A Unspecified open wound, right foot, initial encounter; X58.XXXA Exposure to other specified factors, initial encounter; E11.40 Type 2 diabetes mellitus with diabetic neuropathy, unspecified; I25.10 Atherosclerotic heart disease of native coronary artery without angina pectoris; Z79.4 Long term (current) use of insulin; Z89.422 Acquired absence of other left toe(s); I73.9 Peripheral vascular disease, unspecified | CPT/HCPCS: 97597; A9270 ==

== ENCOUNTER → 2025-03-28 | Outpatient (CLI) | payer OTHER, SELFPAY | END | disposition home or self-care (01) | LOC: SWHD 10:13 | PROVIDERS: PCP Nurse Anesthetist, Certified Registered; Referring Provider Nurse Anesthetist, Certified Registered; Visit Provider Student in an Organized Health Care Education/Training Program | DX: E11.621 Type 2 diabetes mellitus with foot ulcer (principal); L97.422 Non-pressure chronic ulcer of left heel and midfoot with fat layer exposed; L97.412 Non-pressure chronic ulcer of right heel and midfoot with fat layer exposed; S91.301A Unspecified open wound, right foot, initial encounter; X58.XXXA Exposure to other specified factors, initial encounter; E11.40 Type 2 diabetes mellitus with diabetic neuropathy, unspecified; I25.10 Atherosclerotic heart disease of native coronary artery without angina pectoris; Z89.422 Acquired absence of other left toe(s); I73.9 Peripheral vascular disease, unspecified | CPT/HCPCS: 11042; 97597; A9270 ==

== ENCOUNTER → 2025-04-04 | Outpatient (CLI) | payer OTHER, SELFPAY | END | disposition home or self-care (01) | LOC: SWHD 10:45 | PROVIDERS: PCP Nurse Anesthetist, Certified Registered; Referring Provider Nurse Anesthetist, Certified Registered; Visit Provider Surgery | DX: E11.621 Type 2 diabetes mellitus with foot ulcer (principal); L97.422 Non-pressure chronic ulcer of left heel and midfoot with fat layer exposed; L97.412 Non-pressure chronic ulcer of right heel and midfoot with fat layer exposed; S91.301A Unspecified open wound, right foot, initial encounter; X58.XXXA Exposure to other specified factors, initial encounter; E11.40 Type 2 diabetes mellitus with diabetic neuropathy, unspecified; I25.10 Atherosclerotic heart disease of native coronary artery without angina pectoris; Z79.4 Long term (current) use of insulin; Z89.422 Acquired absence of other left toe(s); I73.9 Peripheral vascular disease, unspecified | CPT/HCPCS: 11042; 97597; A9270 ==